=== PATIENT | female | born 1975 | race Caucasian/White ===

== ENCOUNTER 2025-07-15 22:29 | Emergency (ER) | payer MEDICARE, MEDICAID, SELFPAY ==
--- OUTSIDE RECORDS SUMMARY | 2021-09-26 13:26 | XMS_ITS | Encounter Summary ---
Author Organization [facility] Address [address] [place] [address] Care Team Providers Care Third Shift Lieutenant Name Role Phone Shay Muse MD Primary Care Provider [phone] Ewelina Payton MD Unavailable [phone] Ewelina Payton MD Unavailable [phone] Encounter Details Date Type Department Care Team (Late st Contact Info) Description 09/26/2021 12:26 PM EST Hospital Encounter [facility] Care [address] [place] [phone] Odin Johns MD [address] [place] [address] Social History Tobacco Use Types Packs/Day Years Used Date Smoking Tobacco: Every Day Cigarettes 0.9 33.8 Last attempted to quit: 12/06/2024 Smokeless Tobacco: Never Comments:Trying to quit but vaping fot ozzy Alcohol Use Standard Drinks/Week Comments Not Currently 7 (1 standard drink = 0.6 oz pur e alcohol) OASIS D0700: Social Isolation Answer Da te Recorded Frequency of experiencing loneliness or isolatio n Never 02/01/2024 OASIS A1250: Transportation Answer Date Recorded Lack of Transportation (Medical) No 02/01/2024 Lack of Transportation (Non-Medical) No 02/01/2024 Patient Unable or Declines to Respond No 02/01/2024 AUDIT-C Answer Date Recorded Q1: How often do you have a drink containing alc ohol? 2-3 times a week 06/30/2022 Q2: How many drinks containi ng alcohol do you have on a typical day when you are drinking? 1 or 2 06/30/2022 Q3: How often do you have si x or more drinks on one occasion? Never 06/30/2022 Comments No Sex and Gender Information Value Date Recorded Sex Assigned at Female 02/09/2023 2:38 PM EDT Legal Sex Female 11:15 PM EDT Gender Identity Female 01/21/2022 10:16 PM EDT Sexual Orientation Heterosexual (straight) 02/09 2:43 PM EDT COVID-19 Exposure Response Date Recorded In the last 10 days, have yo u been in contact with someone who was confirmed or suspected to have Coronavirus/COVID-19? Unable to assess 03/02/2023 7:51 AM EDT documented as of this encounter Functional Status * Question Answer Date of Assessment Author AUDIT-C Total Score - Female 3 06/30/2022 1 2:00 AM EDT Annabel Rocha RN * AUDIT-C Score Answer Date of Assessment Author 3 06/30/2022 12:00 AM EDT Jonelle Rocha RN * Question Answer Date of Assessment Author Q1: How often do you have a drink containing alcohol? 2-3 times a week 06/30/2022 12:00 AM EDT Misty Rocha RN Q2: How many drinks containing alcohol do you have on a typical day when you are drinking? 1 or 2 06/30/2022 12:00 AM EDT Annabel Rocha RN Q3: How often do you have six or more drinks on one occasion? Never 06/30/2022 12:00 AM EDT Annabel Rocha RN * Level of Risk per Screen Answer Date of Assessment Author Low Risk 06/30/2022 12:00 AM Jonelle Vitale RN documented as of this encounter Plan of Treatment Upcoming Encounters Date Type Department Care Team (Late st Contact Info) Description 07/27/2025 10:30 AM EST Office Visit [facility] Breast Care & Surgery [address] [phone] Christian Subramanian MD [address] [place] [address] 09/04/2025 3:00 PM EST Procedure visit [address] [phone] 10/30/2025 9:30 AM EST Office [facility] [address] [facility] [address] [place] [phone] Abby Lozano APRN 6 [facility] [address] [place] [address] documented as of this encounter Procedures Procedure Name Priority Date/Time Associated Diagnosis Comments XR HAND 3+ VIEWS-RIGHT STAT 09/26/2021 12:35 PM EST Finger pain, right documented in this encounter Results * XR Hand 3+ views-Right (09/26/2021 12:35 PM EST) Anatomical Region Laterality Modality Hand Right Computed Radiogr aphy 09/26/2021 12:3 7 PM EST Impressions 09/26/2021 12:42 PM EST 1.Probably a fracture at the base of the right fourth digit middle phalanx. Narrative 09/26/2021 12:42 PM EST COMPARISON(S): None. TECHNIQUE: AP, lateral, and oblique radiographs of the right hand were obtained. FINDINGS: There may be slight soft tissue swelling at the right fourth digit PIP joint. Bony mineralization and alignment are maintained. No periostitis. On the oblique, there is the suggestion of a small fragment along the volar base of the right fourth digit middle phalanx. This is not seen on the lateral. The fragment is not displaced. Procedure Note Isaac Horner MD - 09/26/2021 COMPARISON(S): None. TECHNIQUE: AP, lateral, and oblique radiographs of the right hand wereobtained. FINDINGS: There may be slight soft tissue swelling at the right fourth digit PIPjoint. Bony mineralization and alignment are maintained. No periostitis. On the oblique, there is the suggestion of a small fragment along thevolar base of the right fourth digit middle phalanx. This is not seen onthe lateral. The fragment is not displaced. IMPRESSION: 1.Probably a fracture at the base of the right fourth digit middlephalanx. Elodia Garza PA-C IMG DIAGNOSTIC IMAGING ORDERAB LES Final Result documented in this encounter Visit Diagnoses Not on filedocumented in this encounter Care Teams Third Shift Lieutenant Relationship Specialty Start Date End Date Shay Muse MD [address] [place] [address] PCP - General Internal Medicine 03/13/21 Ewelina Payton MD [address] [place] [id number] 04/19/20 Ewelina Payton MD [address] [place] [id number] 01/26/08 documented as of this encounter
--- OUTSIDE RECORDS SUMMARY | 2022-01-28 19:42 | XMS_ITS | Encounter Summary ---
Author Organization [facility] Address [address] [place] [address] Care Team Providers Care Cooling Tower Technician Name Role Phone Shay Muse MD Primary Care Provider [phone] Ewelina Payton MD Unavailable [phone] Ewelina Payton MD Unavailable [phone] Encounter Details Date Type Department Care Team (Late st Contact Info) Description 01/28/2022 7:42 PM EDT Hospital Encounter [facility] Care [address] [place] [address] Social History Tobacco Use Types Packs/Day Years [...] - Female 3 06/30/2022 1 2:00 AM NATALIET Annabel Rocha RN * AUDIT-C Score Answer Date of Assessment Author 3 06/30/2022 12:00 AM EDT Jonelle Rocha RN * Question Answer Date of Assessment Author Q1: How often do you have a drink containing alcohol? 2-3 times a week 06/30/2022 12:00 AM NATALIET Misty Rocha RN Q2: How many drinks containing alcohol do you have on a typical day when you are drinking? 1 or 2 06/30/2022 12:00 AM Annabel Vitale RN Q3: How often do you have six or more drinks on one occasion? Never 06/30/2022 12:00 AM EDT Annabel Rocha RN * Level of Risk per Screen Answer Date of Assessment Author Low Risk 06/30/2022 12:00 AM NATALIET Jonelle Rocha RN documented as of this encounter Plan of Treatment Upcoming Encounters Date Type Department Care Team (Late st Contact Info) Description 07/27/2025 10:30 AM EST Office Visit [facility] Breast Care & Surgery [address] [place] [phone] Christian Subramanian MD [address] [place], [place] [address] 09/04/2025 3:00 PM EST Procedure visit [address] [phone] 10/30/2025 9:30 AM EST Office Visit [facility] [address] [facility] [address] [place] [phone] Abby Lozano, SENIOR IT PROJECT MANAGER [address] [place] [address] [address] [place] [address] documented as of this encounter Procedures Procedure Name Priority Date/Time Associated Diagnosis Comments XR FOOT 3+ VIEWS-LEFT Routine 01/28/2022 7:46 PM EDT Crush injury of left foot, initial encounter documented in this encounter Results * XR Foot 3+ views-Left (01/28/2022 7:46 PM EDT) Anatomical Region Laterality Modality Foot Left Computed Radiogr aphy 01/28/2022 7:56 PM EDT Impressions 01/28/2022 7:56 PM EDT 1. No acute fracture or dislocation of the left foot. Narrative 01/28/2022 7:56 PM EDT COMPARISON(S): None. TECHNIQUE: AP, lateral, and oblique radiographs of the left foot were obtained. FINDINGS: Normal mineralization without an acute fracture or dislocation. The soft tissues are unremarkable. Procedure Note Jose Antonio Ardon MD - 01/28/2022 COMPARISON(S): None. TECHNIQUE: AP, lateral, and oblique radiographs of the left foot wereobtained. FINDINGS: Normal mineralization without an acute fracture or dislocation. The softtissues are unremarkable. IMPRESSION: 1. No acute fracture or dislocation of the left foot. LIZ Garcia IMG DIAGNOSTIC IMAGING ORDERABL ES Final Result documented in this encounter Visit Diagnoses Not on filedocumented in this encounter Care Teams Cooling Tower Technician Relationship Specialty Start Date End Date Shay Muse MD [address] [place] [address] PCP - General Internal Medicine 03/13/21 Ewelina Payton MD [address] [place] [address] 04/19/20 Ewelina Payton MD [address] [place] [address] 01/26/08 documented as of this encounter
--- OUTSIDE RECORDS SUMMARY | 2023-01-27 19:56 | XMS_ITS | Encounter Summary ---
Author Organization [facility] Address [address] [place] [address] Care Team Providers Care Square Cutter Name Role Phone Shay Muse MD Primary Care Provider [phone] Ewelina Payton MD Unavailable [phone] Ewelina Payton MD Unavailable [phone] Encounter Details Date Type Department Care Team (Late st Contact Info) Description 01/27/2023 7:56 PM EDT Hospital Encounter [facility] [place] Ur[facility] Care [address] [place] [address] Social History Tobacco Use Types [...] AM EDT documented as of this encounter Plan of Treatment Upcoming Encounters Date Type Department Care Team (Late st Contact Info) Description 07/27/2025 10:30 AM EST Office Visit [facility] Breast Care & Surgery [address] [address] Christian Subramanian MD [address] [place] [address] 09/04/2025 3:00 PM EST Procedure visit [address] [phone] 10/30/2025 9:30 AM EST Office Visit [address] [phone] Abby Lozano APRN [address] [place] [address] documented as of this encounter Procedures Procedure Name Priority Date/Time Associated Diagnosis Comments XR FINGER (2ND) 2+ VIEWS-LEFT Routine 01/27/2023 8:01 PM EDT Contusion of left index finger without damage to nail, initial encounter documented in this encounter Results * XR Finger (2nd) 2+ views-Left (01/27/2023 8:01 PM EDT) Anatomical Region Laterality Modality Hand Left Computed Radiogr aphy 01/27/2023 8:41 PM EDT Impressions 01/27/2023 8:42 PM EDT No acute fracture or dislocation of the left second finger. Narrative 01/27/2023 8:42 PM EDT EXAM: XR FINGER (2ND) 2+ VIEWS-LEFT on 01/27/2023 7:56 PM REASON FOR EXAM: Distal phalanx pain and swelling s/p crushing injury COMPARISON(S): None. TECHNIQUE: AP, oblique, and lateral radiographic views of the left second finger were obtained. FINDINGS: No acute fracture or dislocation. There is a rounded osseous structure at the ulnar aspect of the distal interphalangeal joint with well-corticated edges and no donor site, likely an old avulsion fracture. There is normal bony alignment. Bone mineralization is normal. The cartilage spaces are well-maintained. No focal soft tissue abnormality. Procedure Note Chuy Angel MD - 01/27/2023 EXAM: XR FINGER (2ND) 2+ VIEWS-LEFT on 01/27/2023 7:56 PM REASON FOR EXAM: Distal phalanx pain and swelling s/p crushing injury COMPARISON(S): None. TECHNIQUE: AP, oblique, and lateral radiographic views of the left secondfinger were obtained. FINDINGS: No acute fracture or dislocation. There is a rounded osseous structure atthe ulnar aspect of the distal interphalangeal joint with well-corticatededges and no donor site, likely an old avulsion fracture. There is normalbony alignment. Bone mineralization is normal. The cartilage spaces are well-maintained. Nofocal soft tissue abnormality. IMPRESSION: No acute fracture or dislocation of the left second finger. LIZ Garcia IMG DIAGNOSTIC IMAGING ORDERABL ES Final Result documented in this encounter Visit Diagnoses Not on filedocumented in this encounter Care Teams Square Cutter Relationship Specialty Start Date End Date Shay Muse MD [address] [place] [address] PCP - General Internal Medicine 03/13/21 Ewelina Payton MD [address] [place] [address] 04/19/20 Ewelina Payton MD [address] [place] [address] 01/26/08 documented as of this encounter
--- OUTSIDE RECORDS SUMMARY | 2023-03-02 08:06 | XMS_ITS | Encounter Summary ---
Author Organization [facility] Address [address] [place] [address] Care Team Providers Care Tile Grader Name Role Phone Shay Muse MD Primary Care Provider [phone] Ewelina Payton MD Unavailable [phone] Ewelina Payton MD Unavailable [phone] Zeenat Fierro MD Unavailable [phone] Encounter Details Date Type Department Care Team (Late st Contact Info) Description 03/02/2023 8:06 AM EDT Hospital Encounter [facility] Urgent Care [address] [place] [phone] Social History Tobacco Use Types Packs/Day Years [...] Description 07/27/2025 10:30 AM EST Office Visit [facility] Breast Care & Surgery [address] [phone] Christian Subramanian MD [address] [place] [address] 09/04/2025 3:00 PM EST Procedure visit [address] [phone] 10/30/2025 9:30 AM EST Office Visit [facility] [address] [phone] Abby Lozano APRN [address] [place] [address] documented as of this encounter Procedures Procedure Name Priority Date/Time Associated Diagnosis Comments XR WRIST 3+ VIEWS-RIGHT Routine 03/02/2023 8:10 AM EDT Right wrist tendinitis documented in this encounter Results * XR Wrist 3+ views-Right (03/02/2023 8:10 AM EDT) Anatomical Region Laterality Modality Wrist Right Computed Radiogr aphy 03/02/2023 8:13 AM EDT Impressions 03/02/2023 8:14 AM EDT No acute fracture noted Narrative 03/02/2023 8:14 AM EDT EXAM: XR WRIST 3+ VIEWS-RIGHT on 03/02/2023 8:06 AM CLINICAL HISTORY: LAISHA GIBSON is a 48 years old patient with a submitted history of right wrist injury, r/o fracture. ADDITIONAL HISTORY: Wrist pain, right COMPARISONS: None TECHNIQUE: Multiple views of the wrist performed. FINDINGS: Normal bone mineral density Preserved joint spaces No dislocation No displaced fracture Procedure Note Scot Cruz MD - 03/02/2023 EXAM: XR WRIST 3+ VIEWS-RIGHT on 03/02/2023 8:06 AM CLINICAL HISTORY: LAISHA GIBSON is a 48 years old patient with a submitted historyof right wrist injury, r/o fracture. ADDITIONAL HISTORY: Wrist pain, right COMPARISONS: None TECHNIQUE: Multiple views of the wrist performed. FINDINGS: Normal bone mineral density Preserved joint spaces No dislocation No displaced fracture IMPRESSION: No acute fracture noted LIZ Garcia IMG DIAGNOSTIC IMAGING ORDERABL ES Final Result documented in this encounter Visit Diagnoses Not on filedocumented in this encounter Care Teams Tile Grader Relationship Specialty Start Date End Date Shay Muse MD [address] [place] [address] [address] [place] [address] PCP - General Internal Medicine 03/13/21 Zeenat Fierro MD [address] [place] [address] PCP - Internal Medicine Surgery, Neurosurgery 02/09/23 Ewelina Payton MD [address] [place] [address] 04/19/20 Ewelina Payton MD [address] [place] [address] 01/26/08 documented as of this encounter
--- OUTSIDE RECORDS SUMMARY | 2024-03-02 08:59 | XMS_ITS | Encounter Summary ---
Author Organization [facility] Address [address] [place] [address] Care Team Providers Care Successfactors Consultant Name Role Phone Shay Muse MD Primary Care Provider [phone] Ewelina Payton MD Unavailable [phone] Ewelina Payton MD Unavailable [phone] Zeenat Fierro MD Unavailable [phone] Encounter Details Date Type Department Care Team (Late st Contact Info) Description 03/02/2024 8:59 AM EDT Hospital Encounter [facility] Urgent Care [address] [place] [phone] Social History Tobacco Use Types Packs/Day Years [...] Orientation Heterosexual (straight) 02/09 2:43 PM EDT documented as of this encounter Plan of Treatment Upcoming Encounters Date Type Department Care Team (Late st Contact Info) Description 07/27/2025 10:30 AM EST Office Visit [facility] Breast Care & Surgery [address] [phone] Christian Subramanian MD [address] [place] [address] 09/04/2025 3:00 PM EST Procedure visit [address] [phone] 10/30/2025 9:30 AM EST Office Visit [address] [phone] Abby Lozano APRN [address] [place] [address] documented as of this encounter Procedures Procedure Name Priority Date/Time Associated Diagnosis Comments XR FOOT 3+ VIEWS-LEFT STAT 03/02/2024 9:05 AM EDT Left foot pain documented in this encounter Results * XR Foot 3+ views-Left (03/02/2024 9:05 AM EDT) Anatomical Region Laterality Modality Foot Left Computed Radiogr aphy 03/02/2024 9:18 AM EDT Impressions 03/02/2024 9:19 AM EDT No acute osseous injury identified Narrative 03/02/2024 9:19 AM EDT XR FOOT 3+ VIEWS-LEFT: 03/02/2024 8:59 AM CLINICAL HISTORY: dorsal foot pain. Left foot pain. COMPARISON: 01/28/2022 FINDINGS: The osseous structures are intact. There is no evidence of fracture or dislocation. Minimal degenerative changes first MTP joint. Moderate/large plantar calcaneal spur. No acute osseous injury detected. The examination is similar to prior study of 2021. Procedure Note Erich Espinosa MD - 03/02/2024 XR FOOT 3+ VIEWS-LEFT: 03/02/2024 8:59 AM CLINICAL HISTORY: dorsal foot pain. Left foot pain. COMPARISON: 01/28/2022 FINDINGS: The osseous structures are intact. There is no evidence of fracture ordislocation. Minimal degenerative changes first MTP joint. Moderate/large plantar calcaneal spur. No acute osseous injury detected. The examination is similar to prior study of 2021. IMPRESSION: No acute osseous injury identified [facility] DIAGNOSTIC IMAGING ORDERAB LES Final Result documented in this encounter Visit Diagnoses Not on filedocumented in this encounter Care Teams Successfactors Consultant Relationship Specialty Start Date End Date Shay Muse MD [address] [place] [address] [address] [place] [address] PCP - General Internal Medicine 03/13/21 Zeenat Fierro MD [address] [place] [address] PCP - Internal Medicine Surgery, Neurosurgery 02/09/23 Ewelina Payton MD [address] [place] [address] 04/19/20 Ewelina Payton MD [address] [place] [address] 01/26/08 documented as of this encounter
--- OUTSIDE RECORDS SUMMARY | 2024-07-14 12:33 | XMS_ITS | Encounter Summary ---
Author Organization [facility] [place] [address] Care Team Providers Care Chip Silo Tender Name Role Phone Shay Muse MD Primary Care Provider [phone] Encounter Details Date Type Department Care Team (Latest Contact Info) Description 07/14/2024 12:33 PM EDT Hospital Encounter [facility] HISTORIC ENCOUNTERS EASTERN CONVERSION ONLY Other chest pain; Borderline personality disorder (CMS/HCC V24, CMS/HCC V28); Major depressive disorder, recurrent severe without psychotic features (CMS/HCC V24, CMS/HCC V28); Unspecified right bundle-branch block Social History Tobacco Use Types Packs/Day Years Used Date Smoking Tobacco: Every Day Cigarettes 1 30 Started: 07/23/1995 Passive Smoke Exposure: Current Smokeless Tobacco: Never Alcohol Use Standard Drinks/Week Comments Yes 3 (1 standard drink = 0.6 oz pur e alcohol) Comments Unknown Sex and Gender Information Value Date Recorded Sex Assigned at Not on file Legal Sex Female 10:09 AM EST Gender Identity Not on file Sexual Orientation Not on file documented as of this encounter Last Filed Vital Signs Vital Sign Reading Time Taken Comments Blood Pressure - - Pulse - - Temperature - - Respiratory Rate - - Oxygen Saturation - - Inhaled Oxygen Concentration - - Weight 81.6 kg (180 lb) 06/29/2024 8:06 AM EDT Height 165.1 cm (5' 5 ) 06/29/2024 8:06 AM EDT Body Mass Index 29.95 06/29/2024 8:06 AM EDT documented in this encounter Functional Status * Calculated C-SSRS Risk Score (Lifetime/Recent) Answer Date of Assessment Author No Risk Indicated 03/23/2025 8:02 AM EDT Dorothea Montes De Oca RN * [place] Suicide Severity Rating Scale (Screener/Recent Self-Report) Question Answer Date of Assessment Author 1. Wish to be (Past 1 Month) No 025 8:02 AM EDT López Montes De Oca RN 2. Non-Specific Active Suici paul Thoughts (Past 1 Month) No 03/23/2025 8:02 AM EDT López Montes De Oca RN 6. Suicidal Behavior (Lifetime) No 8:02 AM EDT López Montes De Oca RN documented as of this encounter Plan of Treatment Upcoming Encounters Date Type Department Care Team (Late st Contact Info) Description 07/27/2025 12:30 PM EST Office Visit [facility] [address] [phone] Negra Marcelino NP [address] [address] 08/28/2025 11:30 AM EST Appointment [facility] EP Lab [address] [place] [phone] 09/10/2025 9:00 AM EST Office Visit [facility] [address] [phone] Cordell Turpin MD [address] [place] [address] documented as of this encounter Procedures Procedure Name Priority Date/Time Associated Diagnosis Comments TRANSTHORACIC ECHOCARDIOGRAM (TTE) COMPLETE (CONTRAST/BUBBLE/3D/MY OCARDIAL STRAIN PRN) Routine 07/14/2024 1:06 PM EDT Other chest pain Borderline personality disorder (CMS/HCC V24, CMS/HCC V28) Major depressive disorder, recurrent severe without psychotic features (CMS/HCC V24, CMS/HCC V28) Unspecified right bundle-branch block documented in this encounter Results * Transthoracic Echocardiogram (Tte) Complete (Contrast/Bubble/3D/Myocardial Strain Prn) (07/14/2024 1:06 PM EDT) Anatomical Region Laterality Modality Other 07/14/2024 Narrative 07/14/2024 1:06 PM EDT Report completed outside of [facility]. Refer to scanned document and/or notes for final report. Not Vldtd Procedure Note Historical, Cardiovascular Results, MD - 07/22/2024 Report completed outside of [facility]. Refer to scanned document and/or notesfor final report. Not Vldtd us Cordell Turpin MD CV HISTORICAL CONV PROCEDURES Fi nal Result documented in this encounter Visit Diagnoses Diagnosis Other chest pain Borderline personality disorder (CMS/HCC V24, CMS/HCC V28) Borderline personality disorder Major depressive disorder, recurrent severe without psychotic features (CMS/HCC V24, CMS/HCC V28) Unspecified right bundle-branch block documented in this encounter Care Teams Chip Silo Tender Relationship Specialty Start Date End Date Shay Muse MD [address] [place] [address] PCP - General Internal Medicine 05/01/21 documented as of this encounter
--- OUTSIDE RECORDS SUMMARY | 2025-07-10 11:30 | XMS_ITS | Encounter Summary ---
Author Organization [facility] Address [address] [place] [id number] Care Team Providers Care Warehouse Puller Name Role Phone Shay Muse MD Primary Care Provider [phone] Ewelina Payton MD Unavailable [phone] Ewelina Payton MD Unavailable [phone] Zeenat Fierro MD Unavailable [phone] Cordell Turpin MD Unavailable Reason for Referral * Rehabilitation (Elective) - Pending Review Specialty Diagnoses / Procedures Referred By Panchito chao Referred To Contact Rehabilitation Diagnoses Dyssynergia Abby Lozano APRN 6 [facility] [address] [place] [address] Phone: tel: fax: Jon Kamara, PT 2 [facility] [address] [place] [address] Phone: tel: fax: Referral ID Status Reason Start Date Expiration Date Visits Requested Visits Authorized [id number] Pending Review Support Services 07/11/2026 99 99 Question Answer Is this referral for an initial evaluation or additional visits? Initial evaulation Is this related to a Neurological Condition? No * Diagnostic Imaging (Routine) - Pending Review Specialty Diagnoses / Procedures Referred By Contac t Referred To Contact Diagnoses Pain of upper abdomen Procedures CT Abdomen w/contrast (65935) Abby Lozano APRN [address] [address] Phone: tel: fax: CHRISTOPHERCANDI [facility] [place] Referral ID Status Reason Start Date Expiration Date V isits Requested Visits Authorized [id number] Pending Review 07/10/2025 07/11/2026 1 1 Reason for Visit * Reason Comments Abdominal Pain Encounter Details Date Type Department Care Team (Late st Contact Info) Description 07/10/2025 11:30 AM EDT Office Visit [address] [place] [phone] Abby Lozano APRN [address] [address] Dyssynergia (Primary Dx); Irritable bowel syndrome with constipation; Tubular adenoma of colon; Gastroesophageal reflux disease without esophagitis; Abdominal bloating; Pain of upper abdomen; Nausea and vomiting, unspecified vomiting type Social History Tobacco Use Types Packs/Day Years Used Date Smoking Tobacco: Every Day Cigarettes 0.9 33.8 Last attempted to quit: 12/06/2024 Smokeless Tobacco: Never Tobacco Cessation:Ready to Q uit: Not Asked; Counseling Given: Not Answered Comments:Trying to quit but vaping fot ozzy [...] PM EDT documented as of this encounter Last Filed Vital Signs Vital Sign Reading Time Taken Comments Blood Pressure 110/70 07/10/2025 11:17 AM EDT Pulse 91 07/10/2025 11:17 AM EDT Temperature - - Respiratory Rate - - Oxygen Saturation - - Inhaled Oxygen Concentration - - Weight 70.5 kg (155 lb 6.4 oz) 07/10/2025 11:17 AM EDT Height 167.6 cm (5' 6 ) 07/10/2025 11:17 AM EDT Body Mass Index 25.08 07/10/2025 11:17 AM EDT documented in this encounter Progress Notes * Abby Lozano, RASHAAD - 07/10/2025 11:30 AM EDT Images from the original note were not included. [address] [phone] [facility] PROGRESS NOTE Assessment & Plan 1. Dyssynergia Anorectal motility testing April 2025: Dyssynergia features with normal BET. Consider biofeedback therapy. Patient was referred to Anjel Kamara Patient forgot to go to PT. Referral was resent today. 2. Irritable bowel syndrome with constipation 3. Abdominal bloating She has a long hx of constipation Has tried Linzess - stopped in 2022 but unsure why Amitiza and trulance do not work for her. Motegrity was too expensive. Ibsrela was not covered by patient Most recent colonoscopy in 2024 ARM testing in April showing dyssynergia features-referral sent for biofeedback Currently taking Amitiza twice daily. Advised to add MiraLAX as needed Advised to try fiber supplement Start Colace/ Docusate 100 mg at bedtime Can increase to twice a day after 1-2 weeks if stools still too hard/ firm. 4. Tubular adenoma of colon Colonoscopy April 2025: 3 polyps. Recommendation was to repeat colonoscopy in 7 years Path: 1 sessile serrated polyp, 1 adenomatous polyp and 1 hyperplastic polyp 5. Gastroesophageal reflux disease without esophagitis EGD April 2025: Normal esophagus, gastritis, normal examined duodenum Path: Gastritis She only has symptoms when she eats certain sauces and buffalo wings. Well-controlled on Pepcid 20 mg daily Continue Pepcid 20 mg daily Avoid/limit tobacco, alcohol, chocolate, peppermint, caffeine, greasy foods, spicy foods, and acidic foods such as citrus and tomato. Eat smaller, more frequent meals, and do not eat within 2 hours of bedtime. If you have night-time symptoms, elevate the head of the bed 6 to 12 inches. 6. Pain of upper abdomen EGD April 2025: Normal esophagus, gastritis, normal examined duodenum Path: Gastritis Patient was tender on physical exam today. Abdominal ultrasound March 2025: Right renal cyst Will get CT and lab work as patient continues to have abdominal pain ? Related to GERD Can consider trial of PPI if CT scan is negative 7. Nausea and vomiting, unspecified vomiting type Patient with new nausea and vomiting in the past month as well as headaches. This all started when she started Vraylar. She did stop this medication last week. Did get a Holter monitor from cardiology Advised to monitor her symptoms being off medication and if they continue we can do further workup. Plan: CT scan abdomen. Continue the amitiza and restart miralax as needed. Trial stool softener and fiber supplement Start Citrucel OTC daily Biofeedback therapy Continue Pepcid 20 mg daily complete lab work Orders Placed This Encounter CT Abdomen w/contrast (17364) Comprehensive Metabolic Panel Complete Blood Count, with Differential Lipase Amb Referral to Therapy Services (PT or OT) Patient is aware to follow up: 3 months. Patient will call sooner if symptoms develop or worsen. Patient verbalized understanding and is in agreement with plan. No LOS data to display During the day of the visit, time was spent including the following: Examining the patient Chart review in preparation for the visit Documenting in the patient record Reviewing Labs & Radiology Medication Reconciliation Subjective Laisha Oconnor is a 50 y.o. female who presents for follow up. Patient was last seen in office in March 2025 for personal history of colon polyps, GERD, left upperquadrant pain, irritable bowel syndrome constipation, abdominal bloating, black stools. At that time patient was to complete colonoscopy/endoscopy, anorectal motility testing, abdominal ultrasound and complete lab work. Trial of Ibsrela was sent in for patient. Lab work was not completed. Colonoscopy April 2025: 3 polyps. Recommendation was to repeat colonoscopy in 7 years Path: 1 sessile serrated polyp, 1 adenomatous polyp and 1 hyperplastic polyp EGD April 2025: Normal esophagus, gastritis, normal examined duodenum Path: Gastritis Anorectal motility testing April 2025: Dyssynergia features with normal BET. Consider biofeedback therapy. Patient was referred to Anjel Kamara Today: She did try trulance and it did not work. Linzess was not effective. Motegrity was ordered but insurance did not cover so they went back to the amitiza. Patient states she did not get ibsrela because insurance would not cover She has a BM every day to every 4 days - using amitiza daily. Stool can still be hard at times. She did not try the colace to soften the stool. She states she has the urge to have a BM but she cannot get it out. She is drinking a lot of water. She feels like stool is getting stuck in her rectum. She did not go for biofeedback. She states her diet is very bad right now. She does report hx of 3 back surgeries and wonders if this contributes - still reports issues with numbess/tingling down legs at times Additionally - notes area in her perineal region that has been numb since her 9 year old son was born No bloody or black stools. She has bloating once a week. She has some bloating currently. She has abdominal pain with the bloating. She has some abdominal pain in her RUQ. She has heartburn if she eats certain sauces and buffalo wings otherwise well controlled on pepcid 20 mg daily. She was on vrylar for a month and a half and was having dizziness, nausea and vomiting, headaches. She stopped this a week ago. This all started a month ago when starting vraylar. She did a Holter monitor - awaiting results. BP 92/95. She was vomiting every day. She has not vomiting since Wednesday night. She is actively trying to lose weight. Images reviewed: Abdominal ultrasound March 2025: Right renal cyst [] Family Hx Colon Cancer/Polpys: Dad with colon polpys NSAID/Blood Thinner: No Social Hx: Alcohol: Couple of bears every couple weeks Smoking: Over pack a day Other drug use: Marijuana occasional Prior GI Workup: Diminutive TA on 2022 cscope Recall 2027 Review of Systems Constitutional: Positive for weight loss. HENT: Positive for sleep apnea. Eyes: Positive for wears glasses or contacts. Respiratory: Negative. Gastrointestinal: Positive for abdominal pain, bloating, constipation, flatus, heartburn, nausea, vomiting, abdominal swelling and laxative use. Negative for blood in stool, change in bowel habit, black stool, pain swallowing and difficulty eating/swallowing. Genitourinary: Negative. Musculoskeletal: Positive for back pain. Skin: Negative. Breast: Negative. Neurological: Positive for dizziness. Endo/Heme/Allergies: Positive for cold intolerance. Bruises/bleeds easily. Psychiatric/Behavioral: Positive for depression. The patient is nervous/anxious. Objective Vitals: 07/10/25 1117 BP: 110/70 BP Location: Left arm Patient Position: Sitting Cuff Size: Medium (Standard) Pulse: 91 Weight: 70.5 kg (155 lb 6.4 oz) Height: 1.676 m (5' 6 ) Body mass index is 25.08 kg/m??. Wt Readings from Last 3 Encounters: 07/10/25 70.5 kg (155 lb 6.4 oz) 05/01/25 71.7 kg (158 lb) 04/03/25 72.6 kg (160 lb) Physical Exam Vitals and nursing note reviewed. Constitutional: Appearance: Normal appearance. She is well-developed. HENT: Head: Normocephalic. Eyes: General: No scleral icterus. Conjunctiva/sclera: Conjunctivae normal. Cardiovascular: Rate and Rhythm: Normal rate and regular rhythm. Heart sounds: Normal heart sounds. Pulmonary: Effort: Pulmonary effort is normal. Breath sounds: Normal breath sounds. Abdominal: General: Bowel sounds are normal. There is no distension. Palpations: Abdomen is soft. Tenderness: There is abdominal tenderness in the epigastric area. Musculoskeletal: Cervical back: Neck supple. Skin: General: Skin is warm and dry. Neurological: Mental Status: She is alert and oriented to person, place, and time. Psychiatric: Behavior: Behavior normal. Allergies[1] Medication List Caplyta 10.5 MG Cap take 1 capsule by mouth in the evening chlorhexidine (PERIDEX) 0.12 % oral solution Apply 15 mL to the mouth or throat See Admin Instructions. once every other day famotidine (PEPCID) 20 MG tablet TAKE 1 TABLET BY MOUTH TWICE A DAY hydrOXYzine HCl (ATARAX) 25 MG tablet TAKE 1-2 TABLET THREE TIMES A DAY NEEDED FOR ANXIETY ibuprofen (MOTRIN) 600 MG tablet Take 1 tablet (600 mg total) by mouth 3 (three) times a day as needed for mild pain or moderate pain. LaMICtal 150 MG tablet Take 150 mg by mouth 2 (two) times a day. lubiprostone (AMITIZA) 24 MCG capsule Take 1 capsule (24 mcg total) by mouth 2 (two) times a day with meals. pramipexole (miraPEx) 1.5 MG tablet TAKE 6 TABLET BY MOUTH AT BEDTIME traZODone (DESYREL) 100 MG tablet Take by mouth. Recent Labs and Tests Lab Results Component Value Date WBC 5.9 11/26/2024 HGB 15.1 11/26/2024 HCT 44.6 11/26/2024 MCV 96 11/26/2024 PLT 245 11/26/2024 Lab Results Component Value Date GLUC 97 11/26/2024 CALCIUM 9.3 11/26/2024 NA 139 11/26/2024 K 3.9 11/26/2024 CO2 24 11/26/2024 CL 104 11/26/2024 BUN 15 11/26/2024 CREAT 0.7 11/26/2024 Lab Results Component Value Date ALT 15 11/26/2024 AST 15 11/26/2024 GGT 9 11/01/2013 ALKPHOS 80 11/26/2024 BILITOT 0.3 11/26/2024 ALBUMIN 4.3 11/26/2024 Lab Results Component Value Date INR 0.9 09/04/2015 No results found for: LIPASE No results found for: AMYLASE Imaging No results found. Histories Past Medical History: Diagnosis Date Allergic rhinitis 2019 Anemia Borderline Anxiety Back pain 2008 Fusion Bipolar disorder (HCC) Breast mass Cold intolerance Constipation Depression General weakness Some in hands GERD (gastroesophageal reflux disease) Heartburn History of transfusion Possibly during back surgery Leg cramps RLS Palpitations Restless leg syndrome Sleep apnea uses a oral appliance Spinal headache Varicella 1979 Past Surgical History: Procedure Laterality Date BACK SURGERY s1-l5 fusion BARIATRIC SURGERY SECTION COLONOSCOPY N/A 12/09/2022 Procedure: COLONOSCOPY; Surgeon: Spencer Portillo MD; Location: [facility]; Service: Gastroenterology; Laterality: N/A; COLONOSCOPY N/A 05/09/2025 Procedure: COLONOSCOPY; Surgeon: Arya Mars MD; Location: [facility]; Service: Gastroenterology; Laterality: N/A; ENDOSCOPY UPPER N/A 12/09/2022 Procedure: ENDOSCOPY UPPER; Surgeon: Spencer Portillo MD; Location: [facility]; Service: Gastroenterology; Laterality: N/A; ENDOSCOPY UPPER N/A 05/09/2025 Procedure: ENDOSCOPY UPPER; Surgeon: Arya Mars MD; Location: [facility]; Service: Gastroenterology; Laterality: N/A; SPINE SURGERY 2009 2022 and 2023 TONSILLECTOMY TUBAL LIGATION VAGINAL DELIVERY WISDOM TOOTH EXTRACTION Social History[2] Family History Problem Relation Age of Onset No Known Problems Mother Heart attack Father Clogged arteries caught before heart attack Colon polyps Father Diabetes Father Hypertension Father Ulcers Father Learning disabilities Father No Known Problems Half-Sister No Known Problems Brother Ovarian cancer Maternal Aunt 30 - 39 Alcohol abuse Maternal Aunt Breast cancer Paternal Aunt 50 - 59 No Known Problems Paternal Uncle Breast cancer Maternal Grandmother Actually my father's mother Mental illness Maternal Grandmother Anxiety disorder Maternal Grandmother Lung cancer Maternal Grandmother Cancer, other Maternal Grandmother No Known Problems Maternal Grandfather Breast cancer Paternal Grandmother 60 - 69 Stroke Paternal Grandmother Dementia Paternal Grandmother No Known Problems Paternal Grandfather Breast cancer Other 50 - 59 defects Son Mild to moderate hearing loss. Rt kidney small attached to lt Genetic Screening Son Dementia Maternal Uncle Learning disabilities Sister Learning disabilities Son Alcohol abuse Paternal Uncle All relevant data including labs, xrays, diagnositic studies, physician notes, and referral notes were reviewed Electronically signed by Abby Lozano APRN Disclaimer: Portions of this note were dictated by speech recognition. Minor errors in mill supervisor may be present. [1] No Known Allergies [2] Social History Tobacco Use Smoking status: Every Day Current packs/day: 0.00 Average packs/day: 0.9 packs/day for 33.8 years (30.1 ttl pk-yrs) Types: Cigarettes Last attempt to quit: 12/06/2024 Years since quittin.5 Smokeless tobacco: Never Tobacco comments: Trying to quit but vaping fot ozzy Vaping Use Vaping status: Never Used Substance Use Topics Alcohol use: Not Currently Alcohol/week: 7.0 standard drinks of alcohol Drug use: Not Currently Types: Marijuana documented in this encounter Plan of Treatment Upcoming Encounters Date Type Department Care Team (Late st Contact Info) Description 07/27/2025 10:30 AM EST Office Visit [facility] [address] [phone] Christian Subramanian MD [address] [place] [address] 09/04/2025 3:00 PM EST Procedure visit [address] [phone] 10/30/2025 9:30 AM EST Office Visit [address] [phone] Abby Lozano APRN [address] [place] [id number] Scheduled Orders Name Type Priority Associated Diagnoses Orde r Schedule Comprehensive Metabolic Panel Lab Routine Pain of upper abdomen Ordered: 07/10/2025 Complete Blood Count, with Differential Lab Routine Pain of upper abdomen Ordered: 07/10/2025 Lipase Lab Routine Pain of upper abdomen Ordered: 07/10/2025 CT Abdomen w/contrast (81695) Imaging Routine Pain of upper abdomen Expected: 07/10/2025, Expires: 07/10/2026 Scheduled Referrals Name Type Priority Associated Diagnoses Orde r Schedule Amb Referral to Therapy Services (PT or OT) Outpatient Referral Routine Dyssynergia Ordered: 07/10/2025 documented as of this encounter Visit Diagnoses Diagnosis Dyssynergia- Primary Lack of coordination Irritable bowel syndrome with constipation Irritable bowel syndrome Tubular adenoma of colon Benign neoplasm of colon Gastroesophageal reflux disease without esophagitis Esophageal reflux Abdominal bloating Flatulence, eructation, and gas pain Pain of upper abdomen Nausea and vomiting, unspecified vomiting type documented in this encounter Care Teams Warehouse Puller Relationship Specialty Start Date End Date Shay Muse MD [address] [place] [address] [address] [place] [address] PCP - General Internal Medicine 03/13/21 Zeenat Fierro MD [address] [place] [id number] PCP - Internal Medicine Surgery, Neurosurgery 02/09/23 Ewelina Payton MD [address] [place] [phone] 04/19/20 Ewelina Payton MD [address] [place] [address] 01/26/08 Cordell Turpin MD 19 [facility] [address] [place] [address] Insect Control Inspector 05/01/25 documented as of this encounter
[2025-07-15 22:34] VITALS: BP 100/54; PULSE 72; RESP 18; TEMP 35.9; O2SAT 96; BMI 24.2
--- NOTE | 2025-07-15 22:38 | ECG_ITS ---
Test Reason : SYNCOPE Blood Pressure : */* mmHG Vent. Rate : 65 BPM Atrial Rate : 65 BPM P-R Int : 156 ms QRS Dur : 88 ms QT Int : 428 ms P-R-T Axes : 57 -18 17 degrees QTcB Int : 445 ms Normal sinus rhythm Normal ECG When compared with ECG of 11-May-2018 14:23, No significant change was found Referred By: Generic ED Physician Electronically Signed By: CATHI GUZMAN
--- NOTE | 2025-07-15 23:22 | ED_ITS ---
HPI - Altered Mental Status General Chief Complaint: Syncope Stated Complaint: sob/fainted Time Seen by Provider: 07/15/25 23:09 Source: patient, EMS and other (boyfriend) Mode of arrival: EMS Limitations: altered mental status History of Present Illness ED Provider: Dr. Gina uA HPI narrative: 50-year-old female with a history of seizure disorder, orthostatic hypotension, daily alcohol use presenting with altered mental status from her boyfriend's house. EMS reports they were called to patient that was unresponsive. They found the patient alert and oriented when they arrived. Patient admits to taking her night medications including trazodone which she uses for sleep. She is unable to give any history as on arrival to the emergency department, she has been rather somnolent. She denies illicit substance use. Has been avoiding alcohol for the last couple of days. Denies history of alcohol withdrawal. Denies illicit substance use including marijuana. No reported fever. Patient admits to feeling globally weak and fatigued. Denies any vaginal bleeding or discharge. No headache or vision changes. No known sick contacts. Related Data Previous Rx's ?Medication ?Instructions ?Recorded nitrofurantoin 100 mg PO Q12H 7 days #14 ca ps 07/16/25 monohydrate/macrocrystals 100 mg capsule (Macrobid) Allergies Allergy/AdvReac Type Severity Reaction Status Date / Time No Known Allergies Allergy Verified 07/15/25 22:36 Review of Systems 2 Review of Systems: As per HPI, full review of systems performed and negative but for the above mentioned pertinent positives and negatives. [facility] Social History Social History Smoked in Last 30 Days: No Use of substances other than those prescribed or required for medical reasons: No Advance Directives: No Advance Directives Information Provided: No Do you have a plan to hurt others: No Plan Physical Exam ED Exam Exam: GENERAL: Appears intoxicated, GCS 13, eyes open to voice, slurred speech, no acute distress. SKIN: Normal skin color for ethnicity, warm, dry, no rashes noted. HEENT: Normocephalic, atraumatic, no stridor, posterior oropharynx nonerythematous, dentition intact, EOMI, pupils are pinpoint bilaterally, reactive to light. NECK: Soft, supple, no step-offs, no deformities, no lymphadenopathy. CHEST: Heart regular tachycardia, no murmurs, symmetric chest rise and fall. PULMONARY: Clear to auscultation bilaterally, diminished at the bases, no labored breathing, no wheezes/rhales/rhonchi. ABDOMINAL: Soft, nondistended, positive bowel sounds in all quadrants. : Deferred. MUSCULOSKELETAL: Normal tone, full range of motion, no deformities, no peripheral edema. NEURO: GCS 13, eyes open to voice, slightly slurred speech, CN II through XII intact, equal strength and sensation bilateral upper and lower extremities, no focal neurologic deficits. PSYCHIATRIC: Flat affect, poor eye contact. Vital Signs: Vital Signs - 24 hr 07/15/25 22:34 07/16/25 00:07 07/16/25 00:43 Temperature 96.6 F L 97.7 F Pulse Rate 72 66 Respiratory Rate 18 Blood Pressure 100/54 L 103/56 L Pulse Oximetry 96 98 97 Oxygen Delivery Method Room Air Room Air Room Air BMI result Body Mass Index 24.2 Medications Administered Discontinued Medications Generic Name Dose Route Start Last Admin Trade Name Freq PRN Reason Stop Dose Admin Lactated Ringer's 1,000 mls @ 999 mls/hr 07/15/25 23:22 07/16/25 00:46 Lr IV 07/16/25 00:22 Infused .Q1H1M ONE Infusion Nitrofurantoin Macrocrystals 100 mg 07/16/25 03:09 07/16/25 03:13 Nitrofurantoin Monohyd/M-Cryst 100 Mg Capsule PO 07/16/25 03:10 100 mg ONCE ONE Administration Ondansetron HCl 4 mg 07/15/25 23:29 07/15/25 23:36 Ondansetron Hcl 4 Mg/2 Ml Vial IVPUSH 07/15/25 23:30 4 mg ONCE ONE Administration Medical Decision Making Medical Decision Making MDM Narrative: Patient presents today with a chief complaint of altered mental status. Differential diagnosis for AMS is incredibly broad and includes infection, intracranial process such as hemorrhage, stroke or mass, electrolyte abnormality, hypercarbia, hypoxia, toxic encephalopathy, among many others. Broad-based workup was initiated to further evaluate the etiology of patient's symptoms based on the above exam and history. Patient's blood pressure is rather low, prompting IV fluid administration. That being said, she reports her blood pressures often run low and she has issues with postural hypotension. Otherwise, her workup today has been reassuring. Leukocytosis favored to be due to urinary tract infection. No evidence of sepsis otherwise. Plan for antibiotics, outpatient follow-up. Patient has perianesthesia rn that she sees regularly. Discharged home in stable condition. Differential Diagnosis Differential Diagnoses: The differential diagnosis associated with the presentation includes (As above) Admission/Observation Consideration of admission/observation: Escalation of care including admission/observation considered Lab Data MDM Lab Attestation statement: I reviewed the patient's lab results. 07/15/25 23:30 07/15/25 23:30 Labs: Lab Results 07/15/25 07/16/25 Range/Units 23:30 01:37 WBC 13.5 H (4.8-10.8) X10*3/uL RBC 3.93 L (4.20-5.50) X10*6/uL Hgb 13.1 (12.0-16.0) g/dl Hct 38.7 (37.0-47.0) % MCV 98.5 H (80.0-98.0) fL MCH 33.3 H (27.0-33.0) pg MCHC 33.9 (31.0-35.0) g/dl RDW 12.5 (11.0-16.0) % Plt Count 228 (160-400) X10*3/uL MPV 9.9 (9.4-12.3) fL Immature Gran % (Auto) 0.3 (0.0-0.4) % Neut % (Auto) 85.6 H (45-73) % Lymph % (Auto) 8.8 L (20-40) % [place] % (Auto) 4.8 (2-11) % Eos % (Auto) 0.4 (0-4) % Baso % (Auto) 0.1 (0-2) % Lymph # (Auto) 1.2 (1.2-4.9) X10*3/uL [place] # (Auto) 0.6 (0.1-1.2) X10*3/uL Eos # (Auto) 0.1 (0.0-0.4) X10*3/uL Baso # (Auto) 0.0 (0.0-0.2) X10*3/uL Abs Immat Gran (auto) 0.04 H (0.00-0.03) X10*3/uL Absolute Neuts (auto) 11.5 H (2.0-8.3) x10*3/uL Absolute Nucleated RBC 0.000 (0.0-0.012) X10*3/uL Nucleated RBC % (auto) 0.0 (0.0-0.2) /100WBC Sodium 139 (135-145) mmol/L Potassium 3.9 (3.3-5.1) mmol/L Chloride 110 H (96-108) mmol/L Carbon Dioxide 23 (22-29) mmol/L Anion Gap 10 L (12-20) BUN 18 H (9-16) mg/dL Creatinine 0.77 (0.5-1.4) mg/dL Estim Creat Clear Calc 80.8 Estimated GFR > 60 Random Glucose 125 H (60-115) mg/dL Calcium 8.5 (8.4-10.2) mg/dL Magnesium 2.0 (1.6-2.6) mg/dL Total Bilirubin 0.2 (0.0-1.0) mg/dL AST 14 (5-31) U/L ALT 13 (0-31) U/L Alkaline Phosphatase 51 (39-117) U/L Total Creatine Kinase 94 (26-140) U/L Troponin I High Sens < 2.7 (<3.5-17.0) ng/L Total Protein 6.1 L (6.5-8.0) g/dL Albumin 4.2 (3.5-5.0) g/dL Lipase 14 (8-78) U/L Urine Color Yellow Urine Appearance Cloudy Urine pH 6.0 (5.0-9.0) Ur Specific [place] 1.015 (1.005-1.025) Urine Protein Negative (Neg-Trace) mg/dL Urine Glucose (UA) Negative (Negative) mg/dL Urine Ketones Negative (Negative) mg/dL Urine Blood Negative (Negative) Urine Nitrite Negative (Negative) Ur Leukocyte Esterase Small (1+) H (Negative) Urine RBC 0-2 (0-2) /HPF Urine WBC 11-20 H (0-5) /HPF Ur Squamous Epith Cells 11-20 (0-2) /HPF Urine Bacteria 3+ (None Seen) Hyaline Casts 0-2 (0-2) /LPF Salicylates < 5.0 L (15-30) mg/dL Urine Opiates Screen Not Detected (Not Detect) Ur Buprenorphine Scrn Not Detected (Not Detect) ng/mL Ur Oxycodone Screen Not Detected (Not Detect) ng/mL Urine Methadone Screen Not Detected (Not Detect) ng/mL Urine Fentanyl Screen Not Detected (Not Detect) Acetaminophen < 3 (<30) mcg/mL Ur Barbiturates Screen Not Detected (Not Detect) Ur Phencyclidine Scrn Not Detected (Not Detect) Ur Amphetamines Screen Not Detected (Not Detect) U Benzodiazepines Scrn Not Detected (Not Detect) Urine Cocaine Screen Not Detected (Not Detect) U Marijuana (THC) Screen Not Detected (Not Detect) Ethyl Alcohol < 10 mg/dL COVID-19 (MOISÉS) Negative (Negative) COVID-19 Clin Com See Note Influenza Type A (LAQUITA) Negative (Negative) Influenza Type B (LAQUITA) Negative (Negative) Influenza A & B Note See Note Independent Interpretation I performed an independent interpretation of an: EKG Interpretation: My independent interpretation of the ECG reveals normal sinus rhythm with rate of 65, normal axis, normal intervals, no ST elevations or depressions to suggest ischemic changes, relatively unchanged from previous on 05/11/2018. Independent Historian Clinical information obtained from an independent historian. History obtained from or confirmed by: Spouse and EMS Prescription Management I considered prescription management with: Antibiotic Chronic Conditions Patient?s care impacted by: Other (Bipolar disorder) Social Determinants Patient?s care significantly limited by Social Determinants of Health including: Problems related to primary support group Discharge Plan Discharge Clinical Impression: Dehydration, Syncope due to orthostatic hypotension, UTI (urinary tract infection), uncomplicated Patient Disposition: Home, Self-Care Instructions: Syncope (ED) Additional Instructions: Take your antibiotic as prescribed until the course is completed. Do not stop this medication early if you start to feel better. Return to the emergency department with any new or worsening symptoms including: Worsening pain, fevers greater than 100? despite antibiotic treatment, vomiting, or any new symptom that concerns you. Call 911 with any medical emergency. Prescriptions: New nitrofurantoin monohyd/m-cryst [Macrobid] 100 mg capsule 100 mg PO Q12H 7 Days Qty: 14 0RF Rx Instructions: must administer with a meal/food Interventions: ED Discharge Assessment Last Done: 07/16/25 03:28 Discharge Date/Time: 07/16/25 03:35 Print Language: Panamanian
[2025-07-15 23:36] LABS: Hematocrit 38.7 % (37.0-47.0); Hemoglobin 13.1 g/dl (12.0-16.0); Imm Gran Abs Auto 0.04 X10*3/uL (0.00-0.03); Imm Gran Pct Auto 0.3 % (0.0-0.4); Lymphocytes Absolute Auto 1.2 X10*3/uL (1.2-4.9); MANUAL DIFF FLAG NO; Mean Corpuscular HGB Conc 33.9 g/dl (31.0-35.0); Mean Corpuscular Hemoglobin 33.3 pg (27.0-33.0); Mean Corpuscular Volume 98.5 fL (80.0-98.0); NRBC Abs Auto 0.000 X10*3/uL (0.0-0.012); NRBC Pct Auto 0.0 /100WBC (0.0-0.2); Platelet Count 228 X10*3/uL (160-400); Red Blood Count 3.93 X10*6/uL (4.20-5.50); White Blood Count 13.5 X10*3/uL (4.8-10.8)
[2025-07-15] MEDS: Lactated Ringers 1,000 ML 999 ML IV (23:36)
--- NOTE | 2025-07-15 23:39 | PC.NURSE ---
Took over care from CELIA Gil at 23:00, Iv place in Right AC, 20g, labs collected and sent, medicated per nov.
--- OUTSIDE RECORDS SUMMARY | 2025-07-15 23:41 | XMS_ITS | Data Portability ---
Author Organization [place] - [employer] [place], [place], [facility] ADMIN Address [address] [place] [address] Care Team Providers Care Restaurant Greeter Name Role Phone CARRI ARRIAZA Primary Care Provider [phone] Assessment No assessment recorded. Plan of Treatment Reminders Order Date Submit Date Provider Last Modified By Organization Details Last Modified Time Details Appointments ULTRASOUN D 30 2025 09:30A M GP US TECH 1 Not available Not available Not available ULTRASOUN D FU 20 2025 10:00A M FRANCISCO NOYOLA NP Not available Not available Not available Lab basic metabolic 1998 panel, serum or plasma - not fasting 2024 025 [facility], [address] [place], [address], 05/24/2025 11:08:05 urinalysi s, dipstick, auto 2024 025 [facility], [address], [place], [address], 05/24/2025 11:08:05 culture, urine 2024 025 [facility], [address] [place], [address], 05/26/2025 10:15:56 Referral None recorded. Procedures bladder scan (PROC) 2024 025 [facility], [address], [place], [address], 05/24/2025 11:08:05 Surgeries None recorded. Imaging MRI, abdomen, w/wo contrast - Please provide Bosniak classific ation of renal cysts if possible. Please call patient to schedule. 2024 025 [email or web address] ([facility]), [address], [address], [place], [address], 06/06/2025 08:14:24 Medication Orders None recorded. Patient TargetsNo targets recorded. Patient Instructions Encounter Date Encounter Id Patient Instructions Last Modified By Organization Details Last Modified Time 05/23/2025 [id number] [facility] Please proceed to the lab down the ingram immediately following today's visit for blood draw. An MRI has been ordered for you at radiology [facility]. [facility] will contact you to schedule. If you do not hear from them by the end of day tomorrow, please call them to schedule. You will follow-up with one of our nurse practitioners after the above to review results and recommendations. [email or web address] Not available 05/21/2025 18:13:42 06/25/2025 [id number] RBUS in 6 months [email or web address] Not availab le 06/25/2025 10:04:01 Reason for Referral None Reported. Results Created Date Observation Date Name Description Value Unit Range Abnormal Flag Note LastModifiedBy Organization Detail LastModifiedTime 05/23/2005/24/2025 BASIC METAB OLIC PANEL (7) glucose 94 mg/dL 70-99 normal Not Available [facility] ([facility]) [address] [place], [address], 05/24/2025 08:23:43 05/23/2005/24/2025 BASIC METAB OLIC PANEL (7) BUN 14 mg/dL 6-24 normal Not Available [facility] ([facility]) [address] [facility], [place], [address], 05/24/2025 08:23:43 05/23/20 25 05/24/2025 BASIC METAB OLIC PANEL (7) creatinine 0.77 mg/dL 0.57-1 .00 normal Not Available [facility] ([facility]) [address] [facility] [place], [address], 05/24/2025 08:23:43 05/23/20 25 05/24/2025 BASIC METAB OLIC PANEL (7) eGFR 93 mL/mi n/1.7 3 >59 normal Not Available [facility] ([facility]) [address] [facility] [place], [address], 05/24/2025 08:23:43 05/23/20 25 05/24/2025 BASIC METAB OLIC PANEL (7) BUN/creatini ne ratio 18 9-23 normal Not Available [facility] ([facility]) [address] [place], [address], 05/24/2025 08:23:43 05/23/20 25 05/24/2025 BASIC METAB OLIC PANEL (7) sodium 139 mmol/ L 134-14 4 normal Not Available [facility] ([facility]) [address] [place], [address], 05/24/2025 08:23:43 05/23/20 25 05/24/2025 BASIC METAB OLIC PANEL (7) potassium 4.5 mmol/ L 3.5-5. 2 normal Not Available [facility] ([facility]) [address] [place], [address], 05/24/2025 08:23:43 05/23/20 25 05/24/2025 BASIC METAB OLIC PANEL (7) chloride 103 mmol/ L 96-106 normal Not Available [facility] ([facility]) [address] [place], [address], 05/24/2025 08:23:43 05/23/20 25 05/24/2025 BASIC METAB OLIC PANEL (7) carbon dioxide, total 22 mmol/ L 20-29 normal Not Available [facility] ([facility]) [address] [place], [address], 05/24/2025 08:23:43 05/23/20 25 05/23/2025 bladd er scan (PROC ) Urine Volume 53 Not Available [facility] [place] [address], [place], [address], 05/23/2025 08:22:41 05/23/20 25 05/23/2025 urina lysis , dipst ick, auto Leukocytes Trace Not Available [facility] [address], [place], [address], 05/23/2025 08:22:42 05/23/20 25 05/23/2025 urina lysis , dipst ick, auto Nitrite negati ve Not Available [facility] [address], [place], [address], 05/23/2025 08:22:42 05/23/20 25 05/23/2025 urina lysis , dipst ick, auto Urobilinogen .2 Not Available [facility] [address], [place], [address], 05/23/2025 08:22:42 05/23/20 25 05/23/2025 urina lysis , dipst ick, auto Protein Negati ve Not Available [place] [address], [place], [address], 05/23/2025 08:22:42 05/23/20 25 05/23/2025 urina lysis , dipst ick, auto pH 6.5 Not Available [place] [address], [place], [address], 05/23/2025 08:22:42 05/23/20 25 05/23/2025 urina lysis , dipst ick, auto Blood Non-He molyze d: Trace Not Available [facility] [place] [address], [place], [address], 05/23/2025 08:22:42 05/23/20 25 05/23/2025 urina lysis , dipst ick, auto Specific [place] 1.030 Not Available [facility] [place] [address], [place], [address], 05/23/2025 08:22:42 05/23/20 25 05/23/2025 urina lysis , dipst ick, auto Ketone Negati ve Not Available [facility] [place] [address], [place], [address], 05/23/2025 08:22:42 05/23/20 25 05/23/2025 urina lysis , dipst ick, auto Bilirubin Negati ve Not Available [facility] [place] [address], [place], [address], 05/23/2025 08:22:42 05/23/20 25 05/23/2025 urina lysis , dipst ick, auto Glucose Negati ve Not Available [facility] [place] [address], [place], [address], 05/23/2025 08:22:42 06/11/20 25 06/11/2025 MRI, abdom en, w/wo contr ast No observ ation record ed. [facility] [place] ([facility]) [address], [place], [address], 06/11/2025 10:45:26 Result Notes None recorded. Problems Name Problem SNOMED Code Status Onset Date Resolution Date Notes Provider Name and Address Organization Details Recorded Time Cyst of kidney 284005644 Active 025 FRANCISCO NOYOLA NP [address] [place], [address], [place] - [facility] 5 10:10:56 Dysuria 02823504 Active 025 SHYANNE SRSARAH null, [place] - [email or web address] 5 08:25:44 Lower abdominal pain 72466224 Active 025 FRANCISCO NOYOLA NP [address] [place], [address], [facility] [email or web address] 5 10:08:15 Problem Notes None recorded. Medical Equipment None Reported. Allergies No known drug allergies Medications Name Sig Start Date Stop Date Status Note LastModified by Organization Details LastModified Time lamotrigine 150 mg tablet TAKE 1 TABLET BY MOUTH TWICE A DAY active Not Available Not Available No t Available gabapentin 600 mg tablet TAKE 1 TABLET BY MOUTH EVERY NIGHT AT BEDTIME ONE HOUR BEFORE GOING TO BED 06/25 completed Not Available Not Available Not Available doxycycline hyclate 100 mg capsule TAKE 1 CAPSULE BY MOUTH TWICE A DAY 04/09 completed Not Available Not Available Not Available lamotrigine 200 mg tablet TAKE 1 TABLET BY MOUTH TWICE A DAY 06/25 completed Not Available Not Available Not Available ibuprofen 800 mg tablet 1 TABLET 3 TIMES A DAY NEEDED 05/23 completed Not Available Not Available Not Available fluconazole 150 mg tablet TAKE 1 TABLET BY MOUTH EVERY 72 HOURS 06/25 completed Not Available Not Available Not Available phenazopyri dine 200 mg tablet TAKE 1 TABLET BY MOUTH 3 TIMES A DAY NEEDED FOR BLADDER SPASMS. 06/25 completed Not Available Not Available Not Available prednisone 20 mg tablet TAKE 2 TABLETS (40 MG TOTAL) BY MOUTH DAILY. 05/23 completed Not Available Not Available Not Available metronidazo le 500 mg tablet TAKE 1 TABLET BY MOUTH TWICE A DAY WITH MEALS OR FOOD TO REDUCE STOMACH UPSET 04/09 completed Not Available Not Available Not Available phentermine 37.5 mg tablet TAKE 1 TABLET BY MOUTH EVERY DAY 06/25 completed Not Available Not Available Not Available peg-electro lyte solution 420 gram oral solution TAKE DIRECTED FOR COLONOSCO PY/GI PROCEDURE . SEE ADMINISTR ATION INSTRUCTI ONS 05/23 completed Not Available Not Available Not Available omeprazole 40 mg capsule,del ayed release TAKE 1 CAPSULE BY MOUTH 2 TIMES A DAY BEFORE BREAKFAST AND DINNER. 06/25 completed Not Available Not Available Not Available famotidine 20 mg tablet TAKE 1 TABLET BY MOUTH TWICE A DAY active Not Available Not Available No t Available trazodone 100 mg tablet TAKE 1 TO 2 TABLETS BY MOUTH EVERY BEDTIME 05/23 completed Not Available Not Available Not Available cephalexin 500 mg capsule TAKE 1 CAPSULE BY MOUTH TWICE A DAY 05/23 completed Not Available Not Available Not Available dexamethaso ne 4 mg tablet TAKE 1 TABLET BY MOUTH THREE TIMES A DAY 06/25 completed Not Available Not Available Not Available ibuprofen 600 mg tablet TAKE 1 TABLET BY MOUTH THREE TIMES A DAY NEEDED 05/23 completed Not Available Not Available Not Available methylpredn isolone 4 mg tablets in a dose pack TAKE 6 TABLETS ON DAY 1 DIRECTED ON PACKAGE AND DECREASE BY 1 TAB EACH DAY FOR A TOTAL OF 6 DAYS 05/23 completed Not Available Not Available Not Available albuterol sulfate HFA 90 mcg/actuati on aerosol inhaler INHALE 2 PUFFS EVERY 4 HOURS NEEDED FOR WHEEZING OR SHORTNESS OF BREATH 05/23 completed Not Available Not Available Not Available ipratropium bromide 42 mcg (0.06 %) nasal spray SPRAY 2 SPRAYS INTO EACH NOSTRIL EVERY DAY 05/23 completed Not Available Not Available Not Available pramipexole 1.5 mg tablet TAKE 6 TABLET BY MOUTH AT BEDTIME active Not Available Not Available No t Available amoxicillin 875 mg-potassiu m clavulanate 125 mg tablet TAKE 1 TABLET EVERY 12 HOURS DAILY 04/09 completed Not Available Not Available Not Available nitrofurant oin monohydrate /macrocryst als 100 mg capsule TAKE 1 CAPSULE BY MOUTH 2 TIMES A DAY WITH MEALS. 05/23 completed Not Available Not Available Not Available lubiproston e 24 mcg capsule TAKE 1 CAPSULE BY MOUTH 2 TIMES A DAY WITH MEALS. active Not Available Not Available No t Available desvenlafax ine succinate ER 100 mg tablet,exte nded release 24 hr TAKE 1 TABLET BY MOUTH EVERY DAY 05/23 completed Not Available Not Available Not Available Rexulti 3 mg tablet TAKE 1 TABLET BY MOUTH EVERY DAY active Not Available Not Available No t Available Rexulti 1 mg tablet TAKE 1 TABLET BY MOUTH EVERY DAY active Not Available Not Available No t Available Rexulti 0.5 mg tablet TAKE 1 TABLET BY MOUTH EVERY DAY 06/25 completed Not Available Not Available Not Available Rexulti 2 mg tablet TAKE 1 TABLET BY MOUTH EVERY DAY 06/25 completed Not Available Not Available Not Available Vraylar 1.5 mg capsule TAKE 1 CAPSULE BY MOUTH EVERY DAY active Not Available Not Available No t Available Trulance 3 mg tablet TAKE 1 TABLET BY MOUTH DAILY 06/25 completed Not Available Not Available Not Available Vitals Date Recorded Body height Body mass index (BMI) Body weight Provider Name and Address Organization Details Last Updated DateTime 05/23/2025 167.64 cm 25.8 kg/m2 44378.78 [facility] 05/23/2025 08:24:00 Date Recorded Body height Body mass index (BMI) Body weight Provider Name and Address Organization Details Last Updated DateTime 06/25/2025 167.64 cm 25 kg/m2 99735.82 [facility] 06/25/2025 09:48:05 Social History None recorded. Functional Status None recorded. Mental Status None recorded. Family History Nothing Reported. Medical History No medical history recorded. Gynecological HistoryNo gynecological history recorded. Obstetrics History GPAL:G 0 P 0 0 0 0 Past Encounters Encounter ID Performer Location Encounter Start Date Encounter Closed Date Diagnosis/Indication Diagnosis SNOMED-CT Code Diagnosis ICD10 Code Diagnosis IMO Codes Diagnosis Note [id number] Timoteo Humphreys MD [facility] [address] [place] [address] 05/23/2025 08:13:52 05/23/2025 08:39:57 Cyst of kidney 357161677 N28.1 029136 - Pt to undergo MRI abdomen then follow-up after for review of findings and recommenda tions. Blood work to be done prior to imaging to confirm sufficient renal function.- Further work-up pending findings. I advised pt that additional work-up or monitoring may be warranted depending on findings. I'd advise against surgical removal as cysts aren't a known source of pain. Surgical removal also comes with a high risk of complicati ons, which makes this option unfavorabl e. [id number] FRANCISCO NOYOLA NP [facility] [address] [place] [address] 06/25/2025 09:42:02 06/25/2025 10:25:21 Cyst of kidney 030884825 N28.1 75002369 Bosninak 1 and 2 which is benignRBUS in 6 months for Stability Lower abdominal pain 545 98619 R10.30 [id number] Patient describes pain the lower abdomen I advised this pain is unlikely associated with her kidney's and should follow-up with her GI specialist or PCP. Health Concerns Section Related Observation LastModified by Organization Detai ls LastModified Time None Recorded Concern Status LastModified by Organization Details LastModified Time None Recorded Advance Directives Directive None Recorded Payers Insurance Date Sequence Insurance Name Policy Number Policy Hector Covered Member ID Hector Member ID Guarantor Name 06/28/2025 1 [facility] (MEDICARE REPLACEMENT/A DVANTAGE - PPO) [id number] Laisha Oconnor [id number] Laisha Oconnor 06/22/2025 2 [place] Laisha Meltong [id number] Laisha Oconnor Notes Date Note Type Note Provider Name and Address Organization Details Recorded Time 05/23/2025 text/html ROS as noted in the HPI 50-year-old female referred by her PCP for incidental finding of what is described as a slightly complicated cyst in the upper pole of the right kidney measuring 3.2 cm on a complete abdominal ultrasound that was performed at [facility] on April 03, 2025 for the indication of left upper quadrant pain and bloating. Of note, the left kidney was noted to be entirely unremarkable. No other abnormalities were noted in the radiologic report. Pt admits to mild SHANNEN, no UUI. She voids 4x per day and 1x per night. She changes her pad once. Pt states she is not bothered by her mild urinary symptoms. She does not wish to pursure intervention at this time. UA = Trace blood Timoteo Humphreys MD [address] [place], [address], [place] - [email or web address] 05/23/2025 08:58:01 06/25/2025 text/html Laisha is a 50-year-old female who returns for incidental finding of what is described as a slightly complicated cyst in the upper pole of the right kidney measuring 3.2 cm on a complete abdominal ultrasound that was performed at [facility] on April 03, 2025 for the indication of left upper quadrant pain and bloating. Of note, the left kidney was noted to be entirely unremarkable. No other abnormalities were noted in the radiologic report.She presents today for follow-up with and MRI. A subsequent MRI revealed bilateral simple renal cysts, classified as Bosniak I and II, with no nodularity or enhancement. She denies any hematuria but reports intermittent, random right lower quadrant pain, which is not associated with meals. She describes associated severe bloating, stating she can look five months , and had an episode of being keeled over in pain yesterday. She denies the use of Tylenol or NSAIDs for pain. A prior workup with a wire preparation worker, including upper and lower endoscopies, reportedly found unexplained blood in the bowels. 06/11/25 MRI Abdomen: Bilaterally renal cyst without suspicious nodularity or masses. Bosniak 1 and 2 cysts. FRANCISCO NOYOLA NP [address] [place], [address], [place] - [facility] 06/25/2025 10:11:10 OBGyn Episode No OBEpisode recorded.
--- OUTSIDE RECORDS SUMMARY | 2025-07-15 23:41 | XMS_ITS | Clinical Summary ---
Author Organization [facility] Address [address] [place] [address] Care Team Providers Care Airplane Navigator Name Role Phone Derrick [place] Primary Care Provider Unav ailable Medications lamoTRIgine (LaMICtal) 200 MG TABLET DISPERSIBLE disintegrating tablet 0 02/01/20 19 Active traZODone HCl (DESYREL) 50 MG tablet 0 02/01/20 19 Active hydrOXYzine HCl (ATARAX) 25 MG tablet 0 02/01/20 19 Active Pramipexole Dihydrochloride (MIRAPEX) 1 MG tablet 0 02/01/20 19 Active Ibuprofen (ADVIL,MOTRIN) 800 MG tablet 0 02/01/20 19 Active SUMAtriptan Succinate (Imitrex) 100 MG tablet 0 02/01/20 19 Active FLUTICASONE PROPIONATE, NASAL, (FT Allergy Relief 24 HR) 50 MCG/ACT nasal spray 0 02/01/20 19 Active Ipratropium Vilas (ATROVENT) 0.06 % nasal spray 0 02/01/20 19 Active Brexpiprazole (Rexulti) 0.5 MG Tab 0 10/07/19 22 Active busPIRone HCl (BUSPAR) 5 MG tablet TAKE 1 TABLET EVERY 12 HOURS DAILY. 0 10/07/19 22 Active Prazosin HCl (MINIPRESS) 1 MG capsule 0 11/28/19 21 Active Desvenlafaxine Succinate ER 25 MG TABLET SR 24 HR 30 0 11/28/19 21 Active Desvenlafaxine Succinate (PRISTIQ) 50 MG 24 hr tablet 30 0 12/20/19 21 Active Lamotrigine (LaMICtal) 200 MG tablet 60 0 01/27/20 22 Active famotidine (PEPCID) 20 MG tablet 180 0 06/01/20 22 Active Sodium Sulfate-Mag Sulfate-KCl (Sutab) 4653-521-873 MG Tab 24 0 06/03/20 22 Active Ketorolac Tromethamine (TORADOL) 10 MG tablet PLEASE SEE ATTACHED FOR DETAILED DIRECTIONS 20 0 06/28/20 22 Active Desvenlafaxine Succinate (PRISTIQ) 100 MG 24 hr tablet 30 0 07/06/20 22 Active Baclofen 5 MG Tab 42 0 07/16/20 22 Active METRONIDAZOLE VAGINAL (METROGEL) 0.75 % vaginal gel 70 0 07/29/20 22 Active Gabapentin (NEURONTIN) 300 MG capsule 180 0 07/30/20 22 Active Brexpiprazole (Rexulti) 1 MG Tab 30 0 08/20/20 22 Active Baclofen (LIORESAL) 10 MG tablet 60 0 08/24/20 22 Active Pramipexole Dihydrochloride (MIRAPEX) 1.5 MG tablet 540 0 08/26/20 22 Active linaCLOtide (Linzess) 145 MCG Cap 30 0 09/22/19 23 Active Meloxicam (MOBIC) 15 MG tablet 30 0 10/06/19 23 Active Docusate Sodium (COLACE) 100 MG capsule TAKE 1 CAPSULE BY MOUTH 2 (TWO) TIMES A DAY. 10 0 10/30/19 23 Active linaCLOtide (Linzess) 290 MCG Cap 90 0 11/04/19 23 Active Ondansetron (ZOFRAN-ODT) 4 MG disintegrating tablet 8 0 11/12/19 23 Active Sucralfate (CARAFATE) 1 GM/10ML suspension 420 0 11/12/19 23 Active Amoxicillin (AMOXIL) 500 MG capsule 21 0 11/14/19 23 Active Ibuprofen (ADVIL,MOTRIN) 600 MG tablet 21 0 11/14/19 23 Active Active Problems Problem Noted Date Diagnosed Date Difficulty with CPAP use 08/20/2021 Insufficient sleep syndrome 06/17/2021 Restless leg syndrome 06/17/2021 Fatigue 01/30/2021 PTSD (post-traumatic stress disorder) 01/30/2021 MVP (mitral valve prolapse) 01/30/2021 Upper airway resistance syndrome 01/30/2021 Bipolar disorder, mixed 01/30/2021 Insomnia 01/30/2021 Overview (10/24/2023): Description: related to PTSD. Patient is engaged in therapy Snoring 01/27/2021 Obstructive sleep apnea, adult 01/27/2021 History of psychiatric treatment 01/31/2019 Family History Medical History Relation Name Comments Cancer (?Type) Other malignant kishan plasm : Other Diabetes Other diabetes mellit us : Other Hearing Loss Other deafness or hea ring loss : Other Hypertension Other hypertension : Other Relation Name Status Comments Other Social History Tobacco Use Types Packs/Day Years Used Date Smoking Tobacco: Never Assessed Comments:Smoking Status:Form er smoker Comments Unknown Sex and Gender Information Value Date Recorded Sex Assigned at Not on file Legal Sex Female 9:24 PM EDT Gender Identity Not on file Sexual Orientation Not on file Last Filed Vital Signs Vital Sign Reading Time Taken Comments Blood Pressure 110/68 04/29/2022 9:05 AM EDT RLE/Sitting RLE/Sitting Pulse 86 04/29/2022 9:05 AM EDT Temperature - - Respiratory Rate - - Oxygen Saturation 97% 04/29/2022 9:0 5 AM EDT RA Inhaled Oxygen Concentration - - Weight 73.5 kg (161 lb 15.9 oz) 04/29/2022 9:05 AM EDT Height 166.4 cm (5' 5.5 ) 04/29/2022 9: 05 AM EDT Body Mass Index 26.55 04/29/2022 9:05 AM EDT Plan of Treatment Health Maintenance Due Date Last Done Comments Hepatitis C Screening 1974 Pap Smear 1990 DTaP/Tdap/Td (1 - Tdap) 02/05/1992 Hep B (1 of 3 - 19+ 3-dose series) 1993 Mammogram/Breast Imaging 2014 Colon Cancer Screening 2019 Pneumococcal 50+ years (1 of 1 - PCV) 02/05/2024 Zoster (Shingrix) (1 of 2) 02/05/2024 COVID-19 Vaccine (2024-2 6 season) 2025 Influenza (#1) 2025 HPV Vaccine (No Doses Required) Completed Hep A Aged Out No longer eligi ble based on patient's age to complete this topic Hib Aged Out No longer eligi ble based on patient's age to complete this topic Meningococcal ACWY Aged Out No longer eligible based on patient's age to complete this topic Care Teams Airplane Navigator Relationship Specialty Start Date End Date Derrick [place] PCP - General 04/26/23
--- OUTSIDE RECORDS SUMMARY | 2025-07-15 23:41 | XMS_ITS | Encounter Summary ---
Author Organization [facility] Address [address] [place] [address] Care Team Providers Care Pcas Name Role Phone Shay Muse MD Primary Care Provider [phone] Shay Muse MD Unavailable Zeenat Fierro MD Unavailable [phone] Encounter Details Date Type Department Care Team (Late st Contact Info) Description 08/24/2022 Orders Only [facility] Department of [facility] [address] [place] [address] José Miguel Sheppard PA-C Social History Tobacco Use Types Packs/Day Years Used Date Smoking Tobacco: Every Day Cigarettes Smokeless Tobacco: Never Alcohol Use Standard Drinks/Week Comments Not Currently 0 (1 standard drink = 0.6 oz pur e alcohol) Hunger Vital Sign Answer Date Recorded Within the past 12 months, y ou worried that your food would run out before you got the money to buy more. Never true 06/19/20 22 Within the past 12 months, t he food you bought just didn't last and you didn't have money to get more. Never true 06/19/2022 Comments No Sex and Gender Information Value Date Recorded Sex Assigned at Not on file Legal Sex Female 4:21 AM EST Gender Identity Not on file Sexual Orientation Not on file documented as of this encounter Plan of Treatment Not on file documented as of this encounter Visit Diagnoses Not on filedocumented in this encounter Care Teams Pcas Relationship Specialty Start Date End Date Shay Muse MD [address] [facility] [address] [place] [address] PCP - General Internal Medicine 12/12/21 Shay Muse MD [address] [facility] [address] [place] [address] PCP - Insurance Payer PCP 10/18/23 Zeenat Fierro MD [address] [facility] [place] [address] Surgeon Neurosurgery 01/17/24 documented as of this encounter
--- OUTSIDE RECORDS SUMMARY | 2025-07-15 23:41 | XMS_ITS | Encounter Summary ---
Author Organization [facility] Address [address] [place] [address] Care Team Providers Care Corporate Tax Preparer Name Role Phone Shay Muse MD Primary Care Provider [phone] Ewelina Payton MD Unavailable [phone] Ewelina Payton MD Unavailable [phone] Zeenat Fierro MD Unavailable [phone] Cordell Turpin MD Unavailable Encounter Details Date Type Department Care Team (Late st Contact Info) Description 05/09/2025 Scanned Document [facility] ENDO PROC [facility] [address] [place] [address] Arya Mars MD [address] [facility] [address] [place] [address] Social History Tobacco Use Types Packs/Day Years Used Date Smoking Tobacco: Former Cigarettes 0.8 15 Q uit: 12/06/2024 Smokeless Tobacco: Never Comments:Trying to quit [...] Description 07/27/2025 10:30 AM EST Office Visit [facility] Breast Care & Surgery [address] [phone] Christian Subramanian MD [address] [place] [address] 09/04/2025 3:00 PM EST Procedure visit [address] [phone] 10/30/2025 9:30 AM EST Office Visit [facility] [address] [facility] [address] [place] [phone] Abby Lozano APRN [address] [place] [address] documented as of this encounter Procedures Procedure Name Priority Date/Time Associated Diagnosis Comments HX GASTROENTEROLOGY COLONOSCOPY-SCAN 05/09/2025 1:55 PM EDT HX GASTROENTEROLOGY UPPER ENDOSCOPY-SCAN 05/09/2025 1:42 PM EDT PATHOLOGY REPORT 05/09/2025 12:0 0 AM EDT documented in this encounter Results * HX GASTROENTEROLOGY COLONOSCOPY-SCAN (05/09/2025 1:55 PM EDT) us Arya Mars MD HX AMB PROCEDURES Final Resu lt * HX GASTROENTEROLOGY UPPER ENDOSCOPY-SCAN (05/09/2025 1:42 PM EDT) us Arya Mars MD HX AMB PROCEDURES Final Resu lt * Pathology (05/09/2025 12:00 AM EDT) us Arya Mars MD PATHOLOGY/CYTOLOGY ORDERABLE S Final Result documented in this encounter Visit Diagnoses Not on filedocumented in this encounter Care Teams Corporate Tax Preparer Relationship Specialty Start Date End Date Shay Muse MD [address] [place] [address] [address] [place] [address] PCP - General Internal Medicine 03/13/21 Zeenat Fierro MD [address] [place] [id number] PCP - Internal Medicine Surgery, Neurosurgery 02/09/23 Ewelina Payton MD [address] [place] [address] 04/19/20 Ewelina Payton MD [address] [place] [address] 01/26/08 Cordell Turpin MD [address] [facility] [address] [place] [address] Video Tape Transferrer 05/01/25 documented as of this encounter
--- OUTSIDE RECORDS SUMMARY | 2025-07-15 23:41 | XMS_ITS | Encounter Summary ---
Author Organization [facility] Address [address] [place] [address] Care Team Providers Care Director Airport Name Role Phone Shay Muse MD Primary Care Provider [phone] Eewlina Payton MD Unavailable [phone] Ewelina Payton MD Unavailable [phone] Zeenat Fierro MD Unavailable [phone] Cordell Turpin MD Unavailable Encounter Details Date Type Department Care Team (Late st Contact Info) Description 12/09/2022 Scanned Document [facility] [address] [place] [address] [place] [address] Spencer Portillo MD [address] [facility] [address] [place] [id number] Social History Tobacco Use Types Packs/Day Years Used Date Smoking Tobacco: Every Day Cigarettes 0.8 15 Smokeless Tobacco: Never Alcohol Use Standard Drinks/Week Comments Yes 10 (1 standard drink = 0.6 oz pu re alcohol) AUDIT-C Answer Date Recorded Q1: How often [...] was confirmed or suspected to have Coronavirus/COVID-19? No / Unsure 12/07/2022 1:29 PM EDT documented as of this encounter Plan of Treatment Upcoming Encounters Date Type Department Care Team (Late st Contact Info) Description 07/27/2025 10:30 AM EST Office Visit [facility] Breast Care & Surgery [address] [phone] Christian Subramanian MD [address] [place] [address] 09/04/2025 3:00 PM EST Procedure visit [address] [phone] 10/30/2025 9:30 AM EST Office Visit [facility] [address] [phone] Abby Lozano APRN [address] [place] [address] documented as of this encounter Procedures Procedure Name Priority Date/Time Associated Diagnosis Comments PATHOLOGY REPORT 12/09/2022 12:0 0 AM EDT documented in this encounter Results * PATHOLOGY REPORT (12/09/2022 12:00 AM EDT) us Spencer Portillo MD PATHOLOGY/CYTOLOGY ORDERABLES F inal Result documented in this encounter Visit Diagnoses Not on filedocumented in this encounter Care Teams Director Airport Relationship Specialty Start Date End Date Shay Muse MD [address] [place] [address] [address] [facility] [address] [place] [address] PCP - General Internal Medicine 03/13/21 Zeenat Fierro MD [address] [place] [phone] PCP - Internal Medicine Surgery, Neurosurgery 02/09/23 Ewelina Payton MD [address] [place], [place] [phone] 04/19/20 Ewelina Payton MD [address] [place] [phone] 01/26/08 Cordell Turpin MD [address] [place] [address] [address] [place] [address] Car Body Mechanic 05/01/25 documented as of this encounter
--- OUTSIDE RECORDS SUMMARY | 2025-07-15 23:41 | XMS_ITS | Clinical Summary ---
Author Organization [facility] Address [address] [place] [address] Care Team Providers Care Fish Packer Name Role Phone Carri Arriaza MD Primary Care Provider [phone] Ewelina Payton MD Unavailable [phone] Ewelina Payton MD Unavailable [phone] Zeenat Fierro MD Unavailable [phone] Cordell Turpin MD Unavailable Allergies No known active allergies Medications chlorhexidine (PERIDEX) 0.12 % oral solution Apply 15 mL to the mouth or throat See Admin Instructions. once every other day Active famotidine (PEPCID) 20 MG tabletIndications :Gastroesophageal reflux disease, unspecified whether esophagitis present TAKE 1 TABLET BY MOUTH TWICE A DAY 180 tablet 3 04/12/20 24 Active pramipexole (miraPEx) 1.5 MG tablet TAKE 6 TABLET BY MOUTH AT BEDTIME 05/06/20 24 Active ibuprofen (MOTRIN) 600 MG tablet Take 1 tablet (600 mg total) by mouth 3 (three) times a day as needed for mild pain or moderate pain. 11/27/19 25 Active LaMICtal 150 MG tablet Take 150 mg by mouth 2 (two) times a day. 11/29/19 25 Active phentermine (ADIPEX-P) 37.5 MG tablet Take 37.5 mg by mouth. 12/14/19 25 Active lubiprostone (AMITIZA) 24 MCG capsuleIndication s:Chronic idiopathic constipation Take 1 capsule (24 mcg total) by mouth 2 (two) times a day with meals. 180 capsule 3 02/15/20 25 026 Active traZODone (DESYREL) 100 MG tablet Take by mouth. 03/19/20 25 Active hydrOXYzine HCl (ATARAX) 25 MG tablet TAKE 1-2 TABLET THREE TIMES A DAY NEEDED FOR ANXIETY 06/25/20 25 Active Caplyta 10.5 MG Cap take 1 capsule by mouth in the evening 07/04/20 25 Active busPIRone (BUSPAR) 5 MG tabletIndications :Encounter for gynecological examination without abnormal finding,Acute vaginitis Take 1 tablet by mouth 3 (three) times a day. 06/10/20 22 024 Discontinued (Discontinue d by Another Clinician - No E-Cancel/No AVS) Rexulti 3 MG tablet Take 3 mg by mouth daily. 05/02/20 24 025 Discontinued (Med List Clean-up/Old Med - No E-Cancel/No AVS) Tenapanor HCl (Ibsrela) 50 MG tabletIndications :Irritable bowel syndrome with constipation Take 1 tablet (50 mg total) by mouth 2 (two) times a day with breakfast and dinner. 180 tablet 3 03/28/20 25 025 Discontinued (Med List Clean-up/Old Med - No E-Cancel/No AVS) phenazopyridine (PYRIDIUM) 200 MG tabletIndications :UTI symptoms,Acute cystitis without hematuria Take 1 tablet (200 mg total) by mouth 3 (three) times a day as needed for bladder spasms. 6 tablet 04/03/20 25 025 Discontinued (Med List Clean-up/Old Med - No E-Cancel/No AVS) Rexulti 1 MG tablet Take 1 mg by mouth daily. 04/02/20 25 025 Discontinued (Med List Clean-up/Old Med - No E-Cancel/No AVS) Active Problems Problem Noted Date Diagnosed Date Numbness 11/26/2024 Tubular adenoma of colon 04/02/2023 Assessment & Plan (04/02/2023 9:57 AM EDT): Diminutive TA on 2022 cscope Recall 2027 Intussusception 11/05/2022 Assessment & Plan (11/05/2022 7:47 AM EST): Identified at recent ED visit showing small bowel intussusception within the left mid to lower abdomen on CT scan Discussed findings with Dr. Portillo--advised continued tx for constipation and obtain enterography for further evaluation of small intestine Pt opts for MRI enterography--will send over to [facility] for comparison to recent CT Will increase linzess to 290 mcg daily and do a miralax colonoscopy prep to clear current stool burden Will try to move up EGD/colon without bender Follow up after procedures Chronic idiopathic constipation 09/22/2022 Assessment & Plan (04/02/2023 9:55 AM EDT): She has only pellets daily Not currently taking the linzess + bloating EGD/colon/capsule all non-remarkable MRE with jejunal thickening- no correlating finding on capsule Never has had diarrhea Plan: 1. Take linzess 290 daily x 6 months 2. I am hopeful this will also help with UGI motility/symptoms 3. If this does not work, would try prior auth for trulance vs amitiza 24 BID 4. Six month follow up. Assessment & Plan (11/05/2022 7:48 AM EST): Will increase linzess to 290 mcg daily and do a miralax prep to clear current stool burden Colonoscopy with 2 day prep Discussed patients diet and suggested changes, such as, increasing fiber with more fruits, veggies, or supplements. Pt should also increase fluid intake to at least 60 oz of water or water based drinks daily. We discussed different pharmaceutical options and their risks, benefits, and how to correctly take them and stay consistent. Abdominal bloating 09/22/2022 Back spasm 06/29/2022 Normocytic anemia 06/29/2022 Pain of upper abdomen 06/03/2022 Assessment & Plan (06/03/2022 10:09 AM EDT): EGD unremarkable Minimal improvement with PPI daily Increase GERD regimen as above Constipation regimen as below Will order abd ultrasound to eval GB, pancreas, etc Nausea 06/03/2022 Change in bowel function 06/03/2022 Assessment & Plan (06/03/2022 10:11 AM EDT): Patient was recommended lifestyle changes of daily ambulation, 60 oz water-based fluids, and daily fiber supplement with a meal. Use OTC miralax daily. Dysphagia 04/23/2021 Assessment & Plan (04/23/2021 9:36 AM EDT): Modified barium swallow showed no significant abnormalities, entire esophagus not visualized on exam Will schedule EGD for further evaluation to rule out strictures, etc An endoscopy will be scheduled based on current indication. The indications, prep, alternatives and the procedure were thoroughly explained. There is no contraindication to endoscopy. All questions were answered. The potential risks including but not limited to bleeding, infection, and perforation were also explained. Gastroesophageal reflux disease 04/23/2021 Assessment & Plan (04/02/2023 9:59 AM EDT): Asymptomatic currently on PPI BID and H2B BID Plan: I am hopeful with improvement in her lower GI symptoms and improved bowel flow, her UGI symptoms will also improve and we can start to taper her down Attempt taper down to PPI once nightly at next follow up. Assessment & Plan (11/05/2022 7:45 AM EST): EGD unremarkable in 05/2021 Symptoms have been more recently improved with omeprazole 40 mg BID and famotidine 20 mg BID Due to recent intussusception, will cancel EGD with bendre and reschedule as regular EGD Continue GERD diet Follow up after procedures Avoid/limit tobacco, alcohol, chocolate, peppermint, caffeine, greasy foods, spicy foods, and acidic foods such as citrus and tomato. Eat smaller, more frequent meals, and do not eat within 2 hours of bedtime. If you have night-time symptoms, elevate the head of the bed 6 to 12 inches. An endoscopy will be scheduled based on current indication. The indications, prep, alternatives and the procedure were thoroughly explained. There is no contraindication to endoscopy. All questions were answered. The potential risks including but not limited to bleeding, infection, and perforation were also explained. Assessment & Plan (06/03/2022 10:09 AM EDT): EGD 05/2021 unremarkable Increase Omeprazole to 40 mg BID Use Pepcid 20-40 mg BID prn Patient was advised lifestyle modifications: avoid dietary triggers, ETOH, NSAIDs, overeating or skipping meals, or late night eating. Assessment & Plan (04/23/2021 9:33 AM EDT): Pt would like to hold off on using medications at this time Will schedule EGD due to dysphagia and history of GERD Avoid/limit tobacco, alcohol, chocolate, peppermint, caffeine, greasy foods, spicy foods, and acidic foods such as citrus and tomato. Eat smaller, more frequent meals, and do not eat within 2 hours of bedtime. If you have night-time symptoms, elevate the head of the bed 6 to 12 inches. We discussed the minimal potential risk with alf PPI use. Based on AGA expert review the quality of evidence behind lobsterman kidney disease, dementia, bone fractures, and infection with PPI use is low. The current data suggests that lobsterman PPI use does not require routine screening or monitoring of bone density, kidney function, magnesium, or vitamin B levels. There is no clinical evidence to suggest routine intake of calcium, vitamin b12 or magnesium, with PPI use, beyond recommended dietary allowance. Colon cancer screening 04/23/2021 Assessment & Plan (11/05/2022 7:48 AM EST): Colon 05/2021 with poor bowel prep due to n/v with prep Will reschedule and use 2 day prep with miralax/sutab Assessment & Plan (06/03/2022 10:11 AM EDT): Colon 05/2021 with poor bowel prep due to n/v with prep Will use sutab Zofran prn for nausea Continue bowel regimen as below Assessment & Plan (04/23/2021 9:32 AM EDT): High fiber diet. Recommend adding metamucil once daily Adenoma-carcinoma sequence discussed. Last colon: none Discussed scheduling first screening colonoscopy as patient is over age 45; pt is agreeable A colonoscopy will be scheduled based on current indication. The indications, prep, alternatives and the procedure were thoroughly explained. There is no contraindication to colonoscopy. All questions were answered. The potential risks including but not limited to bleeding, infection, and perforation were also explained. 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 Dyssynergia (Primary Dx); Irritable bowel syndrome with constipation; Tubular adenoma of colon; Gastroesophageal reflux disease without esophagitis; Abdominal bloating; Pain of upper abdomen; Nausea and vomiting, unspecified vomiting type 05/17/2025 Orders Only [address] [phone] Abby Lozano TRUCK LOAD[employer] OVER[employer] CRANE Dyssynergia (Primary Dx) 05/09/2025 1:45 PM EDT - 05/09/2025 2:30 PM EDT Surgery [facility] [address] [place] [phone] Arya Mars MD COLONOSCOPY 05/09/2025 1:38 PM EDT Anesthesia Event [facility] [address] [place] [phone] Andrew Menendez MD Koerner, Krista L, PACKAGE PICK UP 05/09/2025 12:36 PM EDT - 05/09/2025 11:59 PM EDT Hospital Encounter [facility] [address] [place] [phone] Arya Mars MD Discharge Disposition: Home or Self Care 05/09/2025 Scanned Document [facility] [address] [place] [phone] Arya Mars MD from Last 3 Months Immunizations Immunization Administration Dates Next Due Tdap 11/18/2019,06/26/2015 Family History Medical History Relation Name Comments No Known Problems Brother Colon polyps Father Robby Diabetes Father Robby Heart attack Father Robby Clogged arterie s caught before heart attack Hypertension Father Robby Learning disabilities Father Robby Ulcers Father Robby No Known Problems Half-Sister 1 Alcohol abuse Maternal Aunt 1 Roshni Ovarian cancer Maternal Aunt 1 Roshni No Known Problems Maternal Grandfather Anxiety disorder Maternal Grandmother Leora Breast cancer Maternal Grandmother Leora Actual ly my father's mother Cancer, other Maternal Grandmother Leora Lung cancer Maternal Grandmother Leora Mental illness Maternal Grandmother Leora Dementia Maternal Uncle Mariangel Alatorre No Known Problems Mother Breast cancer Other Breast cancer Paternal Aunt 1 ?? No Known Problems Paternal Grandfather Breast cancer Paternal Grandmother Amparo Dementia Paternal Grandmother Amparo Stroke Paternal Grandmother Amparo No Known Problems Paternal Uncle 1 Alcohol abuse Paternal Uncle 2 Jonny Learning disabilities Sister Karla Oconnor defects Son 1 Keaton Mcpherson Mild to mode rate hearing loss. Rt kidney small attached to lt Genetic Screening Son 1 Keaton Mcpherson Learning disabilities Son 2 López Hamilton Relation Name Status Comments Brother Alive Father Robby Alive Half-Sister 1 Alive Half-Sister 2 Alive Maternal Aunt 1 Roshni Alive Maternal Aunt 2 Alive Maternal Aunt 3 (Age 72) Maternal Grandfather (Age 60's) Maternal Grandmother Leora (Age 84) Maternal Uncle Mariangel Alatorre Alive Mother Alive Nephew 1 Alive Nephew 2 Alive Niece Alive Niece/Nephew 1 Alive Niece/Nephew 2 Alive Other (Age 80-90) Paternal Aunt 1 ?? Alive Paternal Aunt 2 Alive Paternal Grandfather (Age 81) Paternal Grandmother Amparo (Age 63) Paternal Great-Grandmother Alive Paternal Uncle 1 Alive Paternal Uncle 2 Jonny Alive Sister Karla Oconnor Alive Son 1 Keaton Mcpherson Alive Son 2 López Hamilton Alive Son 3 Alive Son 4 Alive Social History Tobacco Use Types Packs/Day Years [...] Orientation Heterosexual (straight) 02/09 2:43 PM EDT Last Filed Vital Signs Vital Sign Reading Time Taken Comments Blood Pressure 110/70 07/10/2025 11:17 AM EDT Pulse 91 07/10/2025 11:17 AM EDT Temperature 36.6 C (97.9 F) 05/09/2025 2:25 PM EDT Respiratory Rate 16 05/09/2025 2:46 PM EDT Oxygen Saturation 98% 05/09/2025 2:46 PM EDT Inhaled Oxygen Concentration - - Weight 70.5 kg (155 lb 6.4 oz) 07/10/2025 11:17 AM EDT Height 167.6 cm (5' 6 ) 07/10/2025 11:17 AM EDT Body Mass Index 25.08 07/10/2025 11:17 AM EDT Plan of Treatment Upcoming Encounters Date Type Department Care Team (Late st Contact Info) Description 07/27/2025 10:30 AM EST Office Visit [facility] [address] [place] [address] Christian Subramanian MD [address] [place] [address] 09/04/2025 3:00 PM EST Procedure visit [facility] [address] [place] [phone] 10/30/2025 9:30 AM EST Office Visit [facility] [address] [facility] [address] [place] [phone] Abby Lozano APRN [address] [place] [phone] Health Maintenance Due Date Last Done Comments Hepatitis B Vaccines (1 of 3 - 19+ 3-dose series) 1993 Pneumococcal Vaccines 50+ (1 of 2 - PCV) 1993 Lung Cancer Screening (LDCT) 02/05/2024 Zoster (Shingles) Vaccine (1 of 2) 02/05/2024 Influenza Vaccine 04/20/2025 COVID-19 Vaccine (3 - 2024-2 6 season) 2025 01/28/2021, 01/07/2021 Pap Smear (Ages 21-65) 05/26/2026 05/26/2023 Mammogram 10/04/2026 10/04/2024, 07/22, 01/20/2022, Additional history exists DTaP/Tdap/Td Vaccines (3 - T d or Tdap) 11/17/2029 11/18/2019, 06/26/2015 Colonoscopy 05/09/2035 05/09/2025, 04/21, 12/09/2022, Additional history exists RSV Vaccine 50 years and old er and Patients (1 - 1-dose 75+ series) 2049 HIV Screening Completed 12/15/2024 Hepatitis C Virus Screening Completed 12/15/2024 Procedures Procedure Name Priority Date/Time Associated Diagnosis Comments ANORECTAL MANOMETRY Routine 05/11/2025 10:07 AM EDT Irritable bowel syndrome with constipation HX GASTROENTEROLOGY COLONOSCOPY-SCAN 05/09/2025 1:55 PM EDT HX GASTROENTEROLOGY UPPER ENDOSCOPY-SCAN 05/09/2025 1:42 PM EDT ENDOSCOPY UPPER 05/09/2025 1:38 PM EDT Black stools Special Needs *PT REQUESTS TO BE DONE LATE POSSIBLE D/T RIDE* COLONOSCOPY 05/09/2025 1:38 PM EDT Black stools Special Needs *PT REQUESTS TO BE DONE LATE POSSIBLE D/T RIDE* PATHOLOGY REPORT 05/09/2025 12:00 AM EDT HIV 1/2 AG/AB CMIA REFLEX TO CONFIRMATION Routine 12/15/2024 2:34 PM EDT Screen for STD (sexually transmitted disease) HEPATITIS C VIRUS (HCV) ANTIBODY Routine 12/15/2024 2:34 PM EDT Screen for STD (sexually transmitted disease) MG SCREENING DIGITAL BREAST LESLEY- BILATERAL Routine 10/04/2024 9:13 AM EST THINPREP PAP(SUPERVISOR CELL MAINTENANCE) HPV SCR RFX HPV 16,18/45 Routine 05/26/2023 11:18 AM EDT Encounter for gynecological examination without abnormal finding Acute vaginitis from Last 3 Months or Most Recently Relevant to Health Maintenance Results * Anorectal Manometry (05/11/2025 10:07 AM EDT) Frandy Schilling MD GI PROCEDURE ORDERABLES Final Re sult * HX GASTROENTEROLOGY COLONOSCOPY-SCAN (05/09/2025 1:55 PM EDT) Arya Mars MD HX AMB PROCEDURES Final Resu lt * HX GASTROENTEROLOGY UPPER ENDOSCOPY-SCAN (05/09/2025 1:42 PM EDT) Arya Mars MD HX AMB PROCEDURES Final Resu lt * Pathology (05/09/2025 12:00 AM EDT) us Arya Mars MD PATHOLOGY/CYTOLOGY ORDERABLE S Final Result * HIV 1/2 Ag/Ab CMIA Reflex to Confirmation (12/15/2024 2:34 PM EDT) HIV Ag/Ab, 4th Gen NON-REACT KOURTNEY NON-REACT KOURTNEY [employer] [facility] [employer] Comment: HIV-1 antigen and HIV-1/HIV-2 antibodies were not detected. There is no laboratory evidence of HIV infection. PLEASE NOTE: This information has been disclosed to you from records whose confidentiality may be protected by state law. If your state requires such protection, then the state law prohibits you from making any further disclosure of the information without the specific written consent of the person to whom it pertains, or as otherwise permitted by law. A general authorization for the release of medical or other information is NOT sufficient for this purpose. For additional information please refer to http://[employer]/faq/EWO028 (This link is being provided for informational/ educational purposes only.) The performance of this assay has not been clinically validated in patients less than 2 years old. Blood Blood specimen / Unknown 12/15/2024 2:34 PM EDT 12/15/2024 2:35 PM EDT Barby Solis PA-C LAB BLOOD ORDERABLES Lyubov l Result Performing Organization Address City/State/[facility] Co de Phone Number [employer] [address] [place] [phone] * HEPATITIS C VIRUS (HCV) ANTIBODY (12/15/2024 2:34 PM EDT) Hepatitis C Antibody NON-REACT KOURTNEY NON-REACT KOURTNEY [facility] [employer] Comment: HCV antibody was non-reactive. There is no laboratory evidence of HCV infection. In most cases, no further action is required. However, if recent HCV exposure is suspected, a test for HCV RNA (test code 99342) is suggested. For additional information please refer to http://[employer]/faq/YBJ67t6 (This link is being provided for informational/ educational purposes only.) Blood Blood specimen / Unknown 12/15/2024 2:34 PM EDT 12/15/2024 2:35 PM EDT us Barby Solis PA-C LAB BLOOD ORDERABLES Lyubov l Result Performing Organization Address City/State/[facility] Co de Phone Number [employer] [address] [place] [phone] * MG SCREENING DIGITAL BREAST LESLEY- BILATERAL (10/04/2024 9:13 AM EST) Anatomical Region Laterality Modality Other 10/04/2024 9:00 AM EST 10/04/2024 9:00 AM EST Impressions 10/08/2024 1:12 PM EST There is no mammographic evidence of malignancy. Routine follow-up mammogram in 1 year is recommended. The patient will receive a lay summary of the results of this breast imaging exam. Lay summaries for mammography examinations will also identify the patients personal breast tissue composition as required by state law. BIRADS Category 1: Negative ATTESTATION STATEMENT: This study was interpreted by Dr. Ky Alexander working under the direct supervision of Dr. Arnulfo Mosley. I personally reviewed the images and the Residents preliminary report and agree with the report as it is now presented. Thank you for referring your patient to us, Arnulfo Mosley MD [phone] (Electronically Signed - 10/08/2024 13:12) Copy: TRACY REBOLLEDO MD [facility] [place] [address] [place] [address] [phone] CARRI ARRIAZA MD [address] [place] [address] Narrative 10/08/2024 1:12 PM EST HISTORY: Patient is 49 years old and is seen for screening. The patient has no personal history of breast or ovarian cancer. The patient has the following family history of breast cancer: paternal grandmother, at age 60, breast cancer. FILMS COMPARED: Comparison is made with prior exams dating back to 2020. LESLEY STATEMENT: Computer-aided detection was utilized by the radiologist in the interpretation of this examination. 3D tomosynthesis digital mammographic images were obtained using standard projections. MAMMOGRAM FINDINGS: The breasts are heterogeneously dense, which may obscure small masses. (ACR BIRADS density Category c) * No suspicious masses, calcifications or other abnormalities are seen in either breast. Procedure Note Arnulfo Mosley MD - 10/08/2024 HISTORY: Patient is 49 years old and is seen for screening. The patient has no personal history of breast or ovarian cancer. The patient has the following family history of breast cancer: paternalgrandmother, at age 60, breast cancer. FILMS COMPARED: Comparison is made with prior exams dating back to 2020. LESLEY STATEMENT: Computer-aided detection was utilized by the radiologist in theinterpretation of this examination. 3D tomosynthesis digital mammographic images were obtained using standardprojections. MAMMOGRAM FINDINGS: The breasts are heterogeneously dense, which may obscure small masses.(ACR BIRADS density Category c) * No suspicious masses, calcifications or other abnormalities are seen ineither breast. IMPRESSION: There is no mammographic evidence of malignancy. Routine follow-up mammogram in 1 year is recommended. The patient will receive a lay summary of the results of this breastimaging exam. Lay summaries for mammography examinations will alsoidentify the patients personal breast tissue composition as required [facility]. BIRADS Category 1: Negative ATTESTATION STATEMENT: This study was interpreted by Dr. Ky Alexander working under the directsupervision of Dr. Arnulfo Mosley. I personally reviewed the images and the Residents preliminary report andagree with the report as it is now presented. Thank you for referring your patient to us, Arnulfo Mosley MD [phone] (Electronically Signed - 10/08/2024 13:12) Copy: TRACY REBOLLEDO MD [facility] [place] [address] [place] [address] [phone] CARRI ARRIAZA MD [address] [place] [address] )[phone] us Generic Provider IMG LEGACY PROCEDURES Final Res ult * ThinPrep Pap(Hotel Service Manager) HPV Scr Rfx HPV 16,18/45 (05/26/2023 11:18 AM EDT) 05/26/2023 11:1 8 AM EDT Narrative [facility] - 05/31/2023 2:43 PM EDT To view the final report click the scan hyperlink below. Tracy Rebolledo MD LAB AMB PATH/CYTO ORDERABLES Final Result Performing Organization Address City/[facility] Co de Phone Number [facility] [address] [place] [address], from Last 3 Months or Most Recently Relevant to Health Maintenance Insurance [facility] MEDIC[facility] [id number] [place] [address] [facility]ICARE [id number] [place] [address] [employer] [facility] MEDICARE [id number] [place] [address] [facility] MEDIC[facility] Advance Directives * Full Code (Latest Code Status on File) Date Activated Date Inactivated Comments 11/26/2024 4:01 PM * Full Code Date Activated Date Inactivated Comments 06/29/2022 5:43 AM 02/09/2023 1:05 PM Question Answer Comments Decision Thoroughly Discussed with: Patient Care Teams Fish Packer Relationship Specialty Start Date End Date Carri Arriaza MD [address] [place] [address] [address] [place] [address] PCP - General Internal Medicine 03/13/21 Zeenat Fierro MD [address] [place] [phone] PCP - Internal Medicine Surgery, Neurosurgery 02/09/23 Ewelina Payton MD [address] [place] [address] 04/19/20 Ewelina Payton MD [address] [place] [address] 01/26/08 Cordell Turpin MD [address] [place] [phone] Associate Account Director 05/01/25
--- OUTSIDE RECORDS SUMMARY | 2025-07-15 23:41 | XMS_ITS | Clinical Summary ---
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 2 Active lubiprostone (AMITIZA) 24 mcg capsule Take by mouth daily. 3 Active pramipexole (MIRAPEX) 1.5 mg tablet Take 7 tablets (10.5 mg total) by mouth every night at bedtime. 2 Active traZODone (DESYREL) 50 mg tablet Take 1 tablet (50 mg total) by mouth every night at bedtime. Active Vraylar 1.5 mg capsule Take 1 capsule (1.5 mg total) by mouth 1 (one) time each day. Active lamoTRIgine (LaMICtal) 150 mg tablet Take 1 tablet (150 mg total) by mouth 2 (two) times a day. 5 Active diazePAM (VALIUM) 5 mg tablet Take 1 tablet (5 mg total) by mouth every 6 hours as needed. 4 06/25/20 25 Discontinu ed(Therapy completed) lamoTRIgine (LaMICtal) 200 mg tablet Take 1 tablet (200 mg total) by mouth 2 (two) times a day. 2 06/25/20 Discontinu ed(Alterna te therapy) omeprazole (PriLOSEC) [address] capsule TAKE 1 CAPSULE BY MOUTH 2 TIMES A DAY BEFORE BREAKFAST AND DINNER. 2 06/25/20 Discontinu ed(Therapy completed) brexpiprazole (Rexulti) 0.5 mg tablet Take 3 mg by mouth daily. 4 06/25/20 Discontinu ed(Therapy completed) Active Problems Problem Noted Date Diagnosed Date Intussusception ([facility] V24, [facility] V28) 07/26 Coronary artery calcification 06/07/2023 Constipation 10/29/2022 Intussusception of small bowel ([facility] V24, [facility] V28) 10/29/2022 Sprain and strain of right wrist 10/16/2019 Borderline personality disorder ([facility] V24, [facility] V28) 07/24/2015 MDD (major depressive disord er), recurrent severe, without psychosis ([facility] V24, [facility] V28) 07/24/2015 Encounters Date Type Department Care Team Description 06/25/2025 2:15 PM EDT Office Visit [facility] Cardiology [address] [address] Cordell Turpin MD Coronary artery calcification (Primary Dx); Dizziness; Near syncope from Last 3 Months Immunizations Immunization Administration Dates Next Due Tdap Tetanus diptheria acell ular pertussis (Boostrix; Adacel) 7yo and older 11/18/2019 Surgical History Surgery Date Site/Laterality Comments BACK SURGERY PROCEDURE:BACK SURGERY;COMMENT:L5-S1 Fusion MOUTH SURGERY PROCEDURE:MOUTH SURGERY SECTION PROCEDURE: SECTION COLONOSCOPY 05/28/2021 N/A PROCEDURE:COLONOSCOPY;COMMENT :Procedure: COLONOSCOPY; Surgeon: Spencer Portillo MD; Location: [facility]; Service: Gastroenterology; Laterality: N/A; UPPER GASTROINTESTINAL ENDOSCOPY 05/28/2021 N/A PROCEDURE:UPPER GASTROINTESTINAL ENDOSCOPY;COMMENT:Procedure: UPPER ENDOSCOPY-EGD; Surgeon: Spencer Portillo MD; Location: [facility]; Service: Gastroenterology; Laterality: N/A; TONSILLECTOMY PROCEDURE:TONSILLECTOMY;COMME NT:as teenager FOOT FASCIOTOMY 07/01/2023 Right PROCEDURE:FASCIOTOMY FOOT / TOE;COMMENT:Procedure: RIGHT FASCIOTOMY FOOT / TOE; Surgeon: Jennifer Bender DPM; Location: [facility]; Service: Podiatry; Laterality: Right; Medical History Medical History Date Comments Depression DX:Depression Anxiety DX:Anxiety PTSD (post-traumatic stress disorder) DX:PTSD (post-traumatic stress disorder) Bipolar affective disorder ( [facility] V24, [facility] V28) DX:Bipolar affective disorde r ([facility]) Sleep apnea, obstructive 05/14/2021 DX:Slee p apnea, obstructive;COMMENT:cpap new use at present, otherwise uses mouthguard Mitral valve prolapse DX:Mitral valve prolapse Intussusception ([facility] V24 , [facility] V28) DX:Intussusception ([facility]) Family History Medical History Relation Name Comments Coronary artery disease Father Diabetes Father Heart disease Father Hyperlipidemia Father Hypertension Father Cancer Paternal Grandmother Relation Name Status Comments Brother Alive Father Alive Mother Alive Paternal Grandmother Sister 1 Alive Sister 2 Alive Social History Tobacco Use Types Packs/Day Years Used Date Smoking Tobacco: Every Day Cigarettes 1 30 Started: 07/23/1995 Passive Smoke Exposure: Current Smokeless Tobacco: Never Tobacco Cessation:Ready to Q uit: Not Asked; Counseling Given: Not Answered Alcohol Use Standard Drinks/Week Comments Yes 3 (1 standard drink = 0.6 oz pur e alcohol) Comments Unknown Sex and Gender Information Value Date Recorded Sex Assigned at Not on file Legal Sex Female 10:09 AM EST Gender Identity Not on file Sexual Orientation Not on file Obstetrics History Last Filed Vital Signs Vital Sign Reading Time Taken Comments Blood Pressure 108/62 06/25/2025 2:23 PM EDT Pulse 64 06/25/2025 2:23 PM EDT Temperature 37.1 C (98.7 F) 03/23/2025 7:46 AM EDT Respiratory Rate 18 03/23/2025 7:46 AM EDT Oxygen Saturation 98% 06/25/2025 2:23 PM EDT Inhaled Oxygen Concentration - - Weight 68.9 kg (152 lb) 06/25/2025 2:23 PM EDT Height 167.6 cm (5' 6 ) 06/25/2025 2:23 PM EDT Body Mass Index 24.53 06/25/2025 2:23 PM EDT Plan of Treatment Upcoming Encounters Date Type Department Care Team (Late st Contact Info) Description 07/27/2025 12:30 PM EST [facility] [place] [address] [facility] [address] [place] [address] Negra Marcelino NP 19 [facility] [address] [place] [address] 08/28/2025 11:30 AM EST Appointment [facility] [address] [place] [id number] 09/10/2025 9:00 AM EST [facility] [place] [address] [facility] [address] [place] [id number] Cordell Turpin MD 19 [facility] [address] [place] [address] Health Maintenance Due Date Last Done Comments Hepatitis B Vaccines (1 of 3 - 19+ 3-dose series) 1993 Pneumococcal Vaccine: 50+ Years (1 of 2 - PCV) 1993 HIV Screening 08/18/2022 Hepatitis C Screening 08/18/2022 Lung Cancer Screening (Low Dose CT) 08/18/2022 Medicare Annual Wellness Visit 08/18/2022 Social Influencers of Health Screening 08/18/2022 Zoster Vaccines (1 of 2) 02/05/2024 Depression Screening 09/20/2024 COVID-19 Vaccine ( season) 2025 01/28/2021, 01/07/2021 Influenza Vaccine (#1) 2025 Hypertension/CHF/CAD Annual BMP Blood Test 03/23/2026 03/23/2025, 04/28/2024, 04/28/2024, Additional history exists Breast Cancer Screening 01/11/2027 01/11/2025 Cholesterol Screening (Lipid Panel) 01/15/2027 01/15/2022, 01/15/2022, 08/20/2016 Cervical Cancer Screening: HPV 05/31/2028 05/31/2023 DTaP,Tdap,and Td Vaccines (3 - Td or Tdap) 11/17/2029 11/18/2019, 06/26/2015 Colorectal Cancer Screening: Colonoscopy 05/28/2031 05/28/2021 RSV Immunization Adult Patients (1 - 1-dose 75+ series) 2049 HIB Vaccines Aged Out No longer eligi ble based on patient's age to complete this topic HPV Vaccines Aged Out No longer eligi ble based on patient's age to complete this topic Hepatitis A Vaccines Aged Out No long er eligible based on patient's age to complete this topic IPV Vaccines Aged Out No longer eligi ble based on patient's age to complete this topic MMR Vaccines Aged Out No longer eligi ble based on patient's age to complete this topic Meningococcal ACWY Vaccine Aged Out N o longer eligible based on patient's age to complete this topic Meningococcal B Vaccine Aged Out No l onger eligible based on patient's age to complete this topic RSV Immunization Patients Under 20 months Aged Out No longer eligible based on patient's age to complete this topic Varicella Vaccines Aged Out No longer eligible based on patient's age to complete this topic Procedures Procedure Name Priority Date/Time Associated Diagnosis Comments BASIC METABOLIC PANEL STAT 03/23/2025 8:12 AM EDT HPV Routine 05/31/2023 LIPID PANEL Routine 01/15/2022 COLONOSCOPY Routine 05/28/2021 from Last 3 Months or Most Recently Relevant to Health Maintenance Results * Basic Metabolic Panel (BMP) (03/23/2025 8:12 AM EDT) Sodium 137 135 - 145 mmol/L LAB CHEMISTRY METHOD 03/23/2025 8:40 AM EDT [facility] Potassium 3.5 3.5 - 5.1 mmol/L LAB CHEMISTRY METHOD 03/23/2025 8:40 AM EDT [facility] Chloride 105 98 - 107 mmol/L LAB CHE[facility]STR[facility] CO2 26 24 - 32 mmol/L LAB CHEMISTRY METHOD [facility]/23[facility]2025 [facility] Anion Gap 6 5 - 14 LAB CHEMISTRY METHOD 03/23[facility]2025 [facility] Glucose 103 70 - 199 mg/dL LAB CHEMISTRY METHOD 03/23[facility]2025 [facility] BUN 12 7 - 17 mg/dL LAB CHEMISTRY METHOD 03/23/2025 8:40 AM [facility] Creatinine 0.80 0.50 - 1.00 mg/dL LAB CHEMISTRY METHOD 03/23[facility]2025 8[facility] eGFR 89 >=60 mL/min/1. 73m2 LAB CHEMISTRY METHOD 03/23/2025 8:[facility] Comment:Calculation based on the Chronic Kidney Disease Epidemiology Collaboration (CKD-EPI) equation refit without adjustment for race. BUN/Creatinine Ratio 15.0 12.0 - 20.0 LAB CHEMISTRY METHOD 03/23/2025 8[facility] Calcium 8.8 8.4 - 10.2 mg/dL LAB CHEMISTRY METHOD 03/23/2025 8[facility] Blood Venous blood specimen / Unknown Venipuncture / Unknown 03/23/2025 8:12 AM EDT 03/23/2025 8:12 AM EDT us José Miguel Coe DO LAB BLOOD ORDERABLES Final Re sult [facility] [address] [place] [address], * Cervical Cancer Screening: HPV (05/31/2023) Pathologist [facility] Cervical Cancer Screening: HPV no interpretation , abstracted Historical Provider HEALTH MAINTENANCE Final Result * Lipid panel (01/15/2022) Pathologist [facility] Triglycerides 45 <=150 mg/dL Cholesterol 145 0 - 200 mg/dL HDL 62 35 - 88 mg/dL LDL Cholesterol 74 50 - 130 mg/dL Blood Venous blood specimen / Unknown Historical Provider LAB BLOOD ORDERABLES Lyubov l Result * Colonoscopy (05/28/2021) Pathologist [facility] Colonoscopy no interpretation , abstracted Anatomical Region Laterality Modality Other Historical Provider HEALTH MAINTENANCE Final Result from Last 3 Months or Most Recently Relevant to Health Maintenance Insurance [place]ICA[place] - [place] [employer] MEDICARE Care Teams Electric Shaver Mechanic Relationship Specialty Start Date End Date Shay Muse MD [address] [place] [address] PCP - General Internal Medicine 05/01/21
--- OUTSIDE RECORDS SUMMARY | 2025-07-15 23:41 | XMS_ITS ---
Author Organization [facility] Care Team Providers Care Veterinary Laboratory Technician Name Role Phone CARRI ARRIAZA Unavailable Unavailable Allergies and adverse reactions No Known Allergies Care Team Name Role Address Phone Organization Dates CARRI ARRIAZA [address], [facility], [facility] (Office): : [facility] 07/01/2022 - 07/04/2022 Immunizations Immunization Status Vaccine Details Vaccine Code CodeSystem Date Notes SARS-COV-2 (COVID-19) completed SARS-COV-2 (COVID-19) vaccine, mRNA, spike protein, LNP, preservative free, 30 mcg/0.3mL dose Step 2 of Multi-step with next step required 208 CVX created date: 07/01/2022 administer ed date: 01/28/2021 Pfizer SARS-COV-2 (COVID-19) completed SARS-COV-2 (COVID-19) vaccine, mRNA, spike protein, LNP, preservative free, 30 mcg/0.3mL dose, josefina-sucrose formulation Mfg: Pfizer Step 2 of Multi-step with next step required 217 CVX created date: 07/01/2022 administer ed date: 01/28/2021 Had in community SARS-COV-2 (COVID-19) completed SARS-COV-2 (COVID-19) vaccine, mRNA, spike protein, LNP, preservative free, 30 mcg/0.3mL dose g: Pfizer Step 1 of Multi-step with next step required 208 CVX created date: 07/01/2022 administer ed date: 01/07/2021 Had in community SARS-COV-2 (COVID-19) completed SARS-COV-2 (COVID-19) vaccine, mRNA, spike protein, LNP, preservative free, 30 mcg/0.3mL dose, josefina-sucrose formulation Step 1 of Multi-step with next step required 217 CVX created date: 07/01/2022 administer ed date: 01/07/2021 [facility] Mental Status Section Date Assessment Total Score Description 07/04/2022 BIMS 14 cognitively int act CAM 0 No delirium ind icated PHQ-9 02 minimal depress ion 07/04/2022 BIMS 14 cognitively int act CAM 0 No delirium ind icated PHQ-9 02 minimal depress ion Insurance Providers Problems Problem # Description Date of onset Resolved Date Code CodeSystem Concern Status 1 ANEMIA, UNSPECIFIED 07/01/[address] active 2 GASTRO-ESOPHAGEAL REFLUX DISEASE WITHOUT ESOPHAGITIS 07/01/[address] active 3 BIPOLAR DISORDER, UNSPECIFIED 06/30/[address] active 4 DEPRESSION, UNSPECIFIED 06/30/[address] active 5 OTHER SPECIFIED POSTPROCEDURAL STATES 06/30/[address] active 6 RESTLESS LEGS SYNDROME 06/30/[address] active Reason for Referral No Reasons for Referral Entered Social History Social History Observation Description Start Date End Date Code Code System Current Smoking Status Tobacco smoking consumption unknown 401096992 SNOMED CT Sex Assigned At Female 1975 17391-7 [facility] Gender Identity Sexual Orientation Vital Signs Code Code System Vitals Name Values and Units Timing Information 14237-9 INC Pain Level Value=0.0 07/04/2022 9279-1 [facility] Respiratory Rate Value=18.0 Units=/m in 07/04/2022 8462-4 [facility] Blood Pressure-Diastolic Value=68 Un its=mmHg 07/04/2022 8480-6 [facility] Blood Pressure-Systolic Wrlzl=383 Un its=mmHg 07/04/2022 8310-5 [facility] Body Temperature Value=97.5 Units= F 07/04/2022 8867-4 [facility] Heart rate Value=68.0 Units=/min 82627-5 [facility] O2 % BldC Oximetry Value=99.0 Units= % 07/03/2022 8302-2 [facility] Height Value=5.5 Units=Inches 07/01/2022 67495-3 [facility] Weight Wdlmv=148.8 Units=Lbs 08/2022
--- OUTSIDE RECORDS SUMMARY | 2025-07-15 23:41 | XMS_ITS ---
Author Name [facility] Organization Unknown Results Test Name/Text Value Interpretation Date Range Source Bacteria Ur Cult SEE NOTE Abnormal 04/05/2025 QU EST Cannabinoids Ur Ql Scn Negative 03/23/2025 - [facility] Cocaine Ur Ql Scn Negative 03/23/2025 - C T[facility] fentaNYL Ur Ql Positive Abnormal 03/23/2025 - [facility] Amphet Ur Ql Scn Negative 03/23/2025 - CT [facility] Benzodiaz Ur Ql Scn Negative 03/23/2025 - [facility] PCP Ur Ql Scn Negative 03/23/2025 - [facility] Opiates Ur Ql Scn Negative 03/23/2025 - C [facility] Barbiturates Ur Ql Scn Negative 03/23/2025 - [facility] oxyCODONE Ur Ql Scn Negative 03/23/2025 - [facility] Ethanol SerPl-mCnc <10.0 mg/dL 03/23/2025 0 - 10 [facility] eGFRcr SerPlBld CKD-EPI 2020 89.0 mL/min/1.73m2 03/23/2025 - [facility] Potassium SerPl-sCnc 3.5 mmol/L 03/23/2025 3.5 - 5 .1 [facility] Chloride SerPl-sCnc 105.0 mmol/L 03/23/2025 98 - 1 07 [facility] BUN SerPl-mCnc 12.0 mg/dL 03/23/2025 7 - 17 [facility]_ [facility] Glucose SerPl-mCnc 103.0 mg/dL 03/23/2025 70 - 199 [facility] BUN/Creat SerPl 15.0 03/23/2025 12 - 20 [facility]_ [facility] Creat SerPl-mCnc 0.8 mg/dL 03/23/2025 0.5 - 1 CT _[facility] Sodium SerPl-sCnc 137.0 mmol/L 03/23/2025 135 - 14 5 [facility] Calcium SerPl-mCnc 8.8 mg/dL 03/23/2025 8.4 - 10.2 [facility] Anion Gap SerPl Calc-sCnc 6.0 03/23/2025 5 - 14 [facility] CO2 SerPl-sCnc 26.0 mmol/L 03/23/2025 24 - 32 CT _[facility] RBC Auto 97.4 FL 03/23/2025 78 - 100 [facility] PMV Bld Auto 9.5 FL 03/23/2025 7.4 - 11.4 [facility] RDW RBC Auto 13.1 % 03/23/2025 12.1 - 16.2 CT_T [facility] Monocytes NFr Bld Auto 7.1 % 03/23/2025 2 - 12 [facility] Platelet # Bld Auto 214.0 K/mcL 03/23/2025 150 - 4 50 [facility] Monocytes # Bld Auto 0.57 K/mcL 03/23/2025 0 - 0.8 [facility] Neutrophils NFr Bld Auto 76.3 % Above high normal 03/23/2025 44 - 74 [facility] Lymphocytes NFr Bld Auto 14.8 % Below low normal 03/23/2025 20 - 48 [facility] Neutrophils # Bld Auto 6.13 K/mcL 03/23/2025 1.8 - 7.8 CT_[facility] MCHC RBC Auto-EntMCnc 34.5 g/dL 03/23/2025 32 - 36 [facility] Eosinophil NFr Bld Auto 1.2 % 03/23/2025 0 - 6 [facility] Basophils # Bld Auto <0.03 K/mcL 03/23/2025 0 - 0. 2 [facility] Lymphocytes # Bld Auto 1.19 K/mcL 03/23/2025 1 - 3.2 [facility] RBC # Bld Auto 4.23 M/mcL 03/23/2025 4.2 - 5.4 CT_ [facility] WBC # Bld Auto 8.0 K/mcL 03/23/2025 4 - 10.5 [facility] Eosinophil # Bld Auto 0.1 K/mcL 03/23/2025 0 - 0.5 [facility] Basophils NFr Bld Auto 0.2 % 03/23/2025 0 - 2 [facility] Hct VFr Bld Auto 41.2 % 03/23/2025 37 - 47 CT _[facility] MCH RBC Qn Auto 33.6 pcg Above high normal 03/23/2025 25 - 33 [facility] Hgb Bld-mCnc 14.2 g/dL 03/23/2025 12.5 - 16 [facility] Bacteria Ur Cult SEE NOTE Abnormal 03/25/2025 QU EST HBV surface Ab SerPl IA-aCnc <5 Below low normal 12/19/2024 - [facility] HCV Ab SerPl Ql IA NON-REACTIVE Normal 12/19/2024 - [facility] HIV 1+2 Ab+HIV1 p24 Ag SerPl Ql IA NON-REACTIVE Normal 12/19/2024 - [facility] T pallidum Ab Ser Ql IA NEGATIVE Normal 12/19/2024 - [facility] BV bacteria rRNA Vag Ql MOISÉS+probe POSITIVE Abnormal 12/14/2024 - [facility] Stefania rRNA Vag Ql Probe NOT DETECTED Normal 12/14/2024 - C trach rRNA Spec Ql MOISÉS+probe NOT DETECTED Normal 12/14/2024 - C glabrata RNA Vag Ql MOISÉS+probe NOT DETECTED Normal 12/14/2024 - [facility] N gonorrhoea rRNA Spec Ql MOISÉS+probe NOT DETECTED Normal 12/14/2024 - [facility] vaginalis rRNA Spec Ql MOISÉS+probe NOT DETECTED Normal 12/14/2024 - [facility] Prot SerPl-mCnc 7.0 g/dL Normal 11/26/2024 6.3 - 8.[address] CO2 SerPl-sCnc 24.0 mmol/L Normal 11/26/2024 22 - 33 [facility] BUN/Creat SerPl 21.0 Ratio Normal 11/26/2024 10 - 25 HH CCT Creat SerPl-mCnc 0.7 mg/dL Normal 11/26/2024 0.4 - 1.1 HH [facility] Chloride SerPl-sCnc 104.0 mmol/L Normal 11/26/2024 98 - 1 07 [facility] Glucose SerPl-mCnc 97.0 mg/dL Normal 11/26/2024 65 - 99 [facility] BUN SerPl-mCnc 15.0 mg/dL Normal 11/26/2024 8 - [address] Bilirub SerPl-mCnc 0.3 mg/dL Normal 11/26/2024 0.2 - 1 [facility] Sodium SerPl-sCnc 139.0 mmol/L Normal 11/26/2024 136 - 14 5 [facility] Albumin SerPl-mCnc 4.3 g/dL Normal 11/26/2024 3.5 - 5 H[facility] AST SerPl-cCnc 15.0 U/L Normal 11/26/2024 10 - 50 [facility] T Globulin Ser Calc-mCnc 2.7 g/dL Normal 11/26/2024 1.5 - 3.9 [facility] Calcium SerPl-mCnc 9.3 mg/dL Normal 11/26/2024 8.7 - 10.5 [facility] Albumin/Glob SerPl 1.6 Ratio Normal 11/26/2024 1 - 3 [facility] Anion Gap Bld-sCnc 11.0 Normal 11/26/2024 7 - 17 [facility]CT GFR/BSA.pred SerPlBld NEP-CLI-[id number] >90.0 Normal 11/26/2024 59 - H[facility]CT Potassium SerPl-sCnc 3.9 mmol/L Normal 11/26/2024 3.4 - 5 .3 [facility] ALP SerPl-cCnc 80.0 U/L Normal 11/26/2024 32 - 122 [facility] T ALT SerPl-cCnc 15.0 U/L Normal 11/26/2024 10 - 50 [facility] T pro BNP, N-terminal <36.0 pg/mL Normal 11/26/2024 - 125 [facility]CT Magnesium SerPl-mCnc 2.1 mg/dL Normal 11/26/2024 1.6 - 2. 7 [facility]CT Delta NO PREVIOUS RESULT Normal 11/26/2024 - 3 [facility]CT Troponin T SerPl-mCnc <6.0 ng/L Normal 11/26/2024 - 15 [facility] Hgb Bld-mCnc 15.1 g/dL Normal 11/26/2024 11.7 - 15.7 [facility] T Eosinophil/leuk NFr Bld Auto 1.7 % Normal 11/26/2024 H[facility]CT Monocytes/leuk NFr Bld Auto 6.9 % Normal 11/26/2024 H[facility]CT WBC num Bld Auto 5.9 Thou/uL Normal 11/26/2024 4 - 11 [facility] RDW RBC Auto-Rto 12.2 % Normal 11/26/2024 11.5 - 14.5 [facility] Neutrophils/leuk NFr Bld Auto 63.4 % Normal 11/26/2024 [facility]CT RBC num Bld Auto 4.65 Mil/uL Normal 11/26/2024 4 - 5.4 [facility]CT Lymphocytes/leuk NFr Bld Auto 27.3 % Normal 11/26/2024 H[facility]CT Platelet num Bld Auto 245.0 Thou/uL Normal 11/26/2024 150 - 450 H[facility]CT Hct VFr Bld Auto 44.6 % Normal 11/26/2024 35 - 47 HH CCT Neutrophils num Bld Auto 3.77 Thou/uL Normal 11/26/2024 2 - 7.5 H[facility]CT MCHC RBC Auto-mCnc 33.9 g/dL Normal 11/26/2024 30 - 36 H[facility]CT MCV RBC Auto 96.0 fL Normal 11/26/2024 80 - 100 H[facility]CT Lymphocytes num Bld Auto 1.62 Thou/uL Normal 11/26/2024 1.5 - 4.5 H[facility]CT PMV Bld Auto 10.1 fL Normal 11/26/2024 7.5 - 12.5 H[facility]CT Imm Granulocytes/leuk NFr Bld Auto 0.2 % Normal 11/26/2024 H[facility]CT Basophils/leuk NFr Bld Auto 0.5 % Normal 11/26/2024 H[facility]CT MCH RBC Qn Auto 32.5 pg Above high normal 11/26/2024 27 - 31 H[facility]CT Basophils num Bld Auto 0.03 Thou/uL Normal 11/26/2024 0 - 0.2 H[facility]CT Monocytes num Bld Auto 0.41 Thou/uL Normal 11/26/2024 0.2 - 1.5 H[facility]CT Eosinophil num Bld Auto 0.1 Thou/uL Normal 11/26/2024 0 - 0.7 HHCCT Imm Granulocytes num Bld Auto 0.01 Thou/uL Normal 11/26/2024 0 - 0.1 HHCCT POC Glucose 120.0 mg/dL Above high normal 11/26/2024 65 - 99 H[facility]CT Delta NO CHANGE Normal 04/28/2024 - 3 H[facility]CT Troponin T SerPl-mCnc <6.0 ng/L Normal 04/28/2024 - 15 H[facility]CT BUN SerPl-mCnc 12.0 mg/dL Normal 04/28/2024 8 - [address] Calcium SerPl-mCnc 9.2 mg/dL Normal 04/28/2024 8.7 - 10.5 H[facility]CT Chloride SerPl-sCnc 102.0 mmol/L Normal 04/28/2024 98 - 1 07 H[facility]CT BUN/Creat SerPl 17.0 Ratio Normal 04/28/2024 10 - 25 HH CCT Creat SerPl-mCnc 0.7 mg/dL Normal 04/28/2024 0.4 - 1.1 HH CCT Potassium SerPl-sCnc 3.9 mmol/L Normal 04/28/2024 3.4 - 5 .3 H[facility]CT Glucose SerPl-mCnc 94.0 mg/dL Normal 04/28/2024 65 - 99 HHCCT CO2 SerPl-sCnc 24.0 mmol/L Normal 04/28/2024 22 - 33 HH CCT Anion Gap Bld-sCnc 11.0 Normal 04/28/2024 7 - 17 H[facility]CT Sodium SerPl-sCnc 137.0 mmol/L Normal 04/28/2024 136 - 14 5 H[facility]CT GFR/BSA.pred SerPlBld LEB-DZJ-DaEFig >90.0 Normal 04/28/2024 59 - HHCCT Troponin T SerPl-mCnc <6.0 ng/L Normal 04/28/2024 - 15 H[facility]CT Delta NO PREVIOUS RESULT Normal 04/28/2024 - 3 H[facility]CT WBC num Bld Auto 6.7 Thou/uL Normal 04/28/2024 4 - 11 HHCCT Eosinophil num Bld Auto 0.04 Thou/uL Normal 04/28/2024 0 - 0.7 HHCCT Hct VFr Bld Auto 40.7 % Normal 04/28/2024 35 - 47 HH CCT Monocytes num Bld Auto 0.4 Thou/uL Normal 04/28/2024 0.2 - 1.5 HHCCT Neutrophils num Bld Auto 5.0 Thou/uL Normal 04/28/2024 2 - 7.5 HHCCT Imm Granulocytes/leuk NFr Bld Auto 0.1 % Normal 04/28/2024 HHCCT Lymphocytes/leuk NFr Bld Auto 18.6 % Normal 04/28/2024 H[facility]CT Neutrophils/leuk NFr Bld Auto 74.4 % Normal 04/28/2024 H[facility]CT Platelet num Bld Auto 249.0 Thou/uL Normal 04/28/2024 150 - 450 H[facility]CT Basophils num Bld Auto 0.02 Thou/uL Normal 04/28/2024 0 - 0.2 HHCCT RBC num Bld Auto 4.37 Mil/uL Normal 04/28/2024 4 - 5.4 HHCCT Hgb Bld-mCnc 13.4 g/dL Normal 04/28/2024 11.7 - 15.7 HH[facility] T MCH RBC Qn Auto 30.7 pg Normal 04/28/2024 27 - [address] Lymphocytes num Bld Auto 1.25 Thou/uL Below low normal 04/28/2024 1.5 - 4.5 HHCCT MCV RBC Auto 93.0 fL Normal 04/28/2024 80 - 100 H[facility]CT PMV Bld Auto 10.1 fL Normal 04/28/2024 7.5 - 12.5 H[facility]CT Eosinophil/leuk NFr Bld Auto 0.6 % Normal 04/28/2024 HHCCT MCHC RBC Auto-mCnc 32.9 g/dL Normal 04/28/2024 30 - 36 HHCCT Imm Granulocytes num Bld Auto 0.01 Thou/uL Normal 04/28/2024 0 - 0.1 H[facility]CT Monocytes/leuk NFr Bld Auto 6.0 % Normal 04/28/2024 HHCCT RDW RBC Auto-Rto 13.9 % Normal 04/28/2024 11.5 - 14.5 HHCCT Basophils/leuk NFr Bld Auto 0.3 % Normal 04/28/2024 HHCCT D DIMER DDU PPP EIA MCNC 189.0 ng/mL DDU Normal 04/28/2024 - 231 [facility] LYMPHOCYTES NFR BLD AUTO 24.0 % Normal 04/28/2024 20 - 48 [facility] WBC NO. BLD AUTO 5.4 K/uL Normal 04/28/2024 4 - 10.5 CT [facility] IMMATURE GRANULOCYTE, PERCENT 0.2 % Normal 04/28/2024 0 - [facility] RBC QN AUTO 30.8 pg Normal 04/28/2024 25 - 33 [facility] RDW RBC AUTO RTO 13.9 % Normal 04/28/2024 12.1 - 16.2 REPLACED BY [facility] LYMPHOCYTES NO. BLD AUTO 1.3 K/uL Normal 04/28/2024 1 - 3.2 [facility] NEUTROPHILS NO. BLD AUTO 3.7 K/uL Normal 04/28/2024 1.8 - 7.8 [facility] IMMATURE GRANULOCYTE, ABSOLUTE 0.01 k/uL Normal 04/28/2024 - 0.1 REPLACED BY [facility] RBC NO. BLD AUTO 4.41 M/uL Normal 04/28/2024 4.2 - 5.4 CT [facility] PMV BLD AUTO 10.2 fL Normal 04/28/2024 7.4 - [facility] BAS[facility] NFR BLD AUTO 0.4 % Normal 04/28/2024 0 - 2 REPLACED BY [facility] PLATELET NO. BLD AUTO 232.0 K/uL Normal 04/28/2024 150 - 450 [facility] EOSINOPHIL NFR BLD AUTO 1.8 % Normal 04/28/2024 0 - 6 [facility] EOSINOPHIL NO. BLD AUTO 0.1 K/uL Normal 04/28/2024 0 - 0.5 [facility] HCT VFR BLD AUTO 40.5 % Normal 04/28/2024 37 - 47 CT [facility] NUCLEATED RBC 0.0 % Normal 04/28/2024 0 - 1 [facility] BASOPHILS IN BLOOD BY AUTOMATED COUNT 0.0 K/uL Normal 04/28/2024 0 - 0.2 [facility] MCV RBC AUTO 91.8 fL Normal 04/28/2024 78 - 100 [facility] HGB BLD MCNC 13.6 g/dL Normal 04/28/2024 12.5 - 16 [facility] MCHC RBC AUTO MCNC 33.6 g/dL Normal 04/28/2024 32 - 36 [facility] MONOCYTES NFR BLD AUTO 5.9 % Normal 04/28/2024 2 - 12 [facility] MONOCYTES NO. BLD AUTO 0.3 K/uL Normal 04/28/2024 0 - 0.8 REPLACED BY [facility] NEUTROPHILS NFR BLD AUTO 67.7 % Normal 04/28/2024 44 - 74 [facility] PT TIME PPP 11.5 sec Normal 04/28/2024 10.5 - 13.3 [facility] INR PPP 0.9 Normal 04/28/2024 0.8 - 1.1 [facility] ANION GAP SERPL SCNC 4.0 mmol/L Below low normal 04/28/2024 5 - 14 [facility] POTASSIUM SERPL SCNC 4.0 mmol/L Normal 04/28/2024 3.5 - 5 .1 [facility] CREAT SERPL MCNC 0.7 mg/dL Normal 04/28/2024 0.5 - 1 CT [facility] GLUCOSE SERPL MCNC 112.0 mg/dL Normal 04/28/2024 70 - 199 [facility] HCO3 SER SCNC 28.0 mmol/L Normal 04/28/2024 24 - 32 [facility] SODIUM SERPL SCNC 135.0 mmol/L Normal 04/28/2024 135 - 14 5 [facility] CHLORIDE SERPL SCNC 103.0 mmol/L Normal 04/28/2024 98 - 1 07 REPLACED BY [facility] Glomerular filtration rate/1.73 sq M. predicted 105.0 Normal 04/28/2024 60 - [facility] CALCIUM SERPL MCNC 9.1 mg/dL Normal 04/28/2024 8.4 - 10.2 [facility] BUN SERPL MCNC 15.0 mg/dL Normal 04/28/2024 7 - 17 [facility] COLOR OF URINE Yellow Normal 01/18/2024 - CT[facility] HS BACTERIA Few Abnormal 01/18/2024 - [facility] SYSMEX CASTS 0-2 Normal 01/18/2024 - [facility] HEMOGLOBIN, URINE Negative Normal 01/18/2024 - [facility] PH OF URINE 8.0 Normal 01/18/2024 5 - 8 [facility] RBC 0-2 Normal 01/18/2024 0 - 2 [facility] NITRITE Negative Normal 01/18/2024 - [facility] EPITHELIAL CELLS Few Abnormal 01/18/2024 - [facility] GLUCOSE QUAL Negative Normal 01/18/2024 - [facility] KETONES URINE Negative Normal 01/18/2024 - [facility] WBC 0-5 Normal 01/18/2024 0 - 5 [facility] BILIRUBIN, URINE Negative Normal 01/18/2024 - [facility] SPECIFIC GRAVITY <=1.005 Below low normal 01/18/2024 - [facility] LEUKOCYTE ESTERASE Moderate Abnormal 01/18/2024 - [facility] PROTEIN QUAL Negative Normal 01/18/2024 - [facility] CLARITY OF URINE Clear Normal 01/18/2024 - [facility] UROBILINOGEN, URINE 1.0 EU/dL Normal 01/18/2024 0.2 - 1 [facility] HOLD SPECIMEN LAV Normal 01/18/2024 [facility] BICARBONATE 27.0 mmol/L Normal 01/18/2024 23 - 32 [facility] GLOMERULAR FILTRATION RATE ML/MIN/1.73 SQ M.PREDICTED 106.0 mL/min/1.73m*2 Normal 01/18/2024 60 - [facility] CALCIUM, TOTAL 8.7 mg/dL Normal 01/18/2024 8.4 - 10.2 [facility] GLUCOSE 102.0 mg/dL Normal 01/18/2024 70 - 200 [facility] POTASSIUM 4.1 mmol/L Normal 01/18/2024 3.6 - 5.1 [facility] UREA NITROGEN 10.0 mg/dL Normal 01/18/2024 8 - 24 [facility] CREATININE 0.7 mg/dL Normal 01/18/2024 0.6 - 1.2 [facility] ANION GAP 7.0 mmol/L Normal 01/18/2024 3 - 11 [facility] CHLORIDE 106.0 mmol/L Normal 01/18/2024 100 - 111 [facility] SODIUM 140.0 mmol/L Normal 01/18/2024 137 - 144 [facility] HOLD SPECIMEN Normal 01/18/2024 [facility] BASOPHILS % 0.3 % Normal 01/18/2024 0 - [address] 0.1 10*3/uL Normal 01/18/2024 0 - 0.3 [facility] NEUTROPHIL % 77.0 % Above high normal 01/18/2024 40 - [address] [facility] 0.0 10*3/uL Normal 01/18/2024 0 - 0. 2 [facility] HEMOGLOBIN 9.0 g/dL Below low normal 01/18/2024 12 - 16 [facility] IMMATURE GRANULOCYTE % 0.3 % Normal 01/18/2024 0 - 0.6 [facility] LYMPHOCYTE % 14.6 % Below low normal 01/18/2024 20 - 50 [facility] MCV 99.3 fL Normal 01/18/2024 80 - 100 [facility] MONOCYTE % 6.0 % Normal 01/18/2024 4 - 12 [facility] RED CELL COUNT 2.81 10*6/ L Below low normal 01/18/2024 3.8 - 5.2 [facility] HEMATOCRIT 27.9 % Below low normal 01/18/2024 35 - [address] [facility] [address] 5.3 10*3/uL Normal 01/18/2024 1.4 - 6.3 [facility] EOSINOPHIL % 1.8 % Normal 01/18/2024 0 - 6 [facility] RBC DISTRIBUTION WIDTH 12.2 % Normal 01/18/2024 11.6 - 14.8 [facility] MCH 32.0 pg Normal 01/18/2024 26 - [address] [facility] [address] 0.4 10*3/uL Normal 01/18/2024 0.2 - 0.[address] 1.0 10*3/uL Normal 01/18/2024 0.7 - 4.5 [facility] MCHC 32.3 g/dL Normal 01/18/2024 32 - 36 [facility] PLATELET COUNT 285.0 10*3/uL Normal 01/18/2024 150 - 440 [facility] AUTO NRBC % 0.0 % Normal 01/18/2024 0 - 0 [facility] WHITE CELL COUNT 6.8 10*3/uL Normal 01/18/2024 3.6 - 11 [facility] HEMOGLOBIN 10.4 g/dL Below low normal 01/11/2024 12 - 16 [facility] HEMATOCRIT 31.4 % Below low normal 01/11/2024 35 - 47 [facility] ACTIVATED PARTIAL THROMBOPLASTIN TIME IN PPP BY COAGULATION ASSAY 30.0 seconds Normal 01/10/2024 25.1 - 36.5 [facility] INR 1.0 ratio Normal 01/10/2024 0.9 - 1.1 [facility] PROTHROMBIN TIME (PT) 11.7 seconds Normal 01/10/2024 10.4 - 13 [facility] CREATININE 0.7 mg/dL Normal 01/10/2024 0.6 - 1.2 [facility] CHLORIDE 113.0 mmol/L Above high normal 01/10/2024 100 - 11 1 [facility] BICARBONATE 23.0 mmol/L Normal 01/10/2024 23 - 32 [facility] ANION GAP 4.0 mmol/L Normal 01/10/2024 3 - 11 [facility] GLUCOSE 116.0 mg/dL Normal 01/10/2024 70 - 200 [facility] UREA NITROGEN 13.0 mg/dL Normal 01/10/2024 8 - 24 [facility] HS SODIUM 140.0 mmol/L Normal 01/10/2024 137 - 144 [facility] GLOMERULAR FILTRATION RATE ML/MIN/1.73 SQ M.PREDICTED 106.0 mL/min/1.73m*2 Normal 01/10/2024 60 - [facility] CALCIUM, TOTAL 8.8 mg/dL Normal 01/10/2024 8.4 - 10.2 [facility] POTASSIUM 4.2 mmol/L Normal 01/10/2024 3.6 - 5.1 [facility] MCV 97.3 fL Normal 01/10/2024 80 - 100 [facility] RED CELL COUNT 3.76 10*6/ L Below low normal 01/10/2024 3.8 - 5.2 [facility] AUTO NRBC % 0.0 % Normal 01/10/2024 0 - 0 [facility] RBC DISTRIBUTION WIDTH 12.8 % Normal 01/10/2024 11.6 - 14.8 [facility] HEMATOCRIT 36.6 % Normal 01/10/2024 35 - 47 [facility] MCHC 33.6 g/dL Normal 01/10/2024 32 - 36 [facility] PLATELET COUNT 183.0 10*3/uL Normal 01/10/2024 150 - 440 [facility] HEMOGLOBIN 12.3 g/dL Normal 01/10/2024 12 - 16 [facility] MCH 32.7 pg Normal 01/10/2024 26 - 34 [facility] WHITE CELL COUNT 11.3 10*3/uL Above high normal 01/10/2024 3 .6 - 11 [facility] ANTIBODY SCREEN NEG Normal 01/03/2024 [facility] RH TYPE IN BLOOD POS Normal 01/03/2024 [facility] ABO GROUP (TYPE) IN BLOOD A Normal 01/03/2024 [facility] VITAMIN D, 25H 32.0 ng/mL Normal 01/03/2024 - [facility] History of Medication Use Medication Directions Dispensed Refills Start Date End Date Status Caplyta 10.5 MG Cap take 1 capsule by mouth in the evening 07/04/20 25 active hydrOXYzine HCl (ATARAX) 25 MG tablet TAKE 1-2 TABLET THREE TIMES A DAY NEEDED FOR ANXIETY 06/25/20 25 active lamoTRIgine (LaMICtal) 150 mg tablet Take 1 tablet (150 mg total) by mouth 2 (two) times a day. 06/01/20 25 active sodium chloride 0.9% (NS) infusion 75 mL/hr, Intravenous, Continuous, Starting on Wed05/09/25 at 1300, Pre-Procedure (GI) 05/09/20 25 active phenazopyridine (PYRIDIUM) 200 MG tablet Take 1 tablet (200 mg total) by mouth 3 (three) times a day as needed for bladder spasms. 04/03/20 25 active Rexulti 1 MG tablet Take 1 mg by mouth daily. 04/02/20 25 active Tenapanor HCl (Ibsrela) 50 MG tablet Take 1 tablet (50 mg total) by mouth 2 (two) times a day with breakfast and dinner. 03/28/20 25 active nitrofurantoin monohydrate (MACROBID) 100 MG capsule Take 1 capsule (100 mg total) by mouth 2 (two) times a day with meals. 03/22/20 25 active traZODone (DESYREL) 100 MG tablet Take by mouth. 03/19/20 25 active lidocaine (XYLOCAINE) 2 % injection 10 mL 10 mL, Subcutaneous, Once, On Lady 01/11/25 at 1030, For 1 dose 01/12/20 25 025 completed prucalopride (MOTEGRITY) 2 mg tablet tablet Take 2 mg by mouth in the morning. 01/09/20 25 active prucalopride succinate (MOTEGRITY) 2 MG tablet Take 1 tablet (2 mg total) by mouth daily. 01/09/20 25 active plecanatide (TRULANCE) 3 MG tablet Take 1 tablet (3 mg total) by mouth daily. 12/19/19 25 active phentermine (ADIPEX-P) 37.5 mg tablet Take 37.5 mg by mouth. 12/14/19 active phentermine (ADIPEX-P) 37.5 MG tablet Take 37.5 mg by mouth. 12/14/19 active LaMICtal 150 MG tablet active LaMICtal 150 MG tablet Take 150 mg by mo ut 2 (two) times a day. 11/29/19 active ipratropium (ATROVENT) 0.06 % nasal spray 2 sprays. 11/14/19 active albuterol (PROVENTIL HFA; VENTOLIN HFA) 108 (90 Base) MCG/ACT inhaler Inhale 2 puffs every 4 (four) hours as needed for wheezing or shortness of breath. 10/09/19 active doxycycline (VIBRAMYCIN) 100 MG capsule Take 1 capsule (100 mg total) by mouth 2 (two) times a day. 10/09/19 active predniSONE (DELTASONE) 20 MG tablet Take 2 tablets (40 mg total) by mouth daily. 10/09/19 active trazodone 100 mg/5 mL oral liquid 10/05/19 025 active desvenlafaxine succinate ER (PRISTIQ) 100 mg 24 hr tablet Take 100 mg by mouth in the morning. 08/30/20 active iopamidol (ISOVUE-370) 76 % injection 100 mL 100 mL, Intravenous, IMG once as needed, contrast, Starting on Lady 06/29/24 at 0818, For 1 dose, Radiology ContrastLot #: [id number] exp 03/1606/29/20 completed nitroglycerin (NITROSTAT) SL tablet 0.4 mg 0.4 mg, Sublingual, Once, On Lady 06/29/24 at 0600, For 1 doseMay give prior to CTA if SBP greater than 100. If male pt call IR provider prior to administering 06/29/20 024 completed pramipexole (miraPEx) 1.5 MG tablet TAKE 6 TABLET BY MOUTH AT BEDTIME 05/06/20 active Rexulti 3 MG tablet Take 3 mg by mouth. 05/02/20 active aspirin chewable tablet 324 mg 324 mg, Oral, Once, On Wed04/28/24 at 0930, For 1 dose 04/28/20 24 completed REXULTI 3mg Tablet active terconazole (TERAZOL 7) 0.4 % vaginal cream Insert 1 applicator into the vagina nightly. 03/20/20 24 active Drospirenone 4 MG Tab 1pilldaily 24 active OMEprazole (PriLOSEC) 40 MG capsule TAKE 1 CAPSULE BY MOUTH 2 TIMES A DAY BEFORE BREAKFAST AND DINNER. 03/06/20 active diazePAM (VALIUM) 5 mg tablet Take 1 tablet (5 mg total) by mouth every 6 hours as needed. 02/09/20 active diazePAM (VALIUM) 5 mg tablet Take 1 tablet (5 mg total) by mouth every 6 hours as needed. 02/09/20 active diazePAM (VALIUM) tablet 5 mg Take 1 tablet (5 mg total) by mouth every 6 (six) hours as needed. 02/09/20 active diazePAM (VALIUM) tablet 5 mg Take 1 tablet (5 mg total) by mouth every 6 (six) hours as needed. 02/09/20 active lubiprostone (AMITIZA) 24 MCG capsule TAKE 1 CAPSULE BY MOUTH 2 TIMES A DAY WITH MEALS. 01/30/20 24 active mupirocin (BACTROBAN) 2 % ointment Please see attached for detailed directions 01/24/20 aborted mupirocin (BACTROBAN) 2 % ointment Apply topically daily as needed (Apply for itching over incisoin) for up to 7 days. Apply to incision area once daily. 01/24/20 24 active sennosides-docusate sodium (SENOKOT-S) 8.6-50 mg tablet Take 1 tablet by mouth daily as needed for constipation. 01/18/20 24 active bisacodyL (Dulcolax, bisacodyl,) 10 mg suppository Insert 1 suppository (10 mg total) into the rectum daily as needed for constipation for up to 10 days. 01/18/20 active metroNIDAZOLE (FLAGYL) 500 MG tablet Take 1 tablet (500 mg total) by mouth 2 (two) times a day. Take with meals or food to reduce stomach upset. 01/14/20 24 025 active metroNIDAZOLE (FLAGYL) 500 mg tablet TAKE 1 TABLET BY MOUTH TWICE A DAY WITH MEALS OR FOOD TO REDUCE STOMACH UPSET 01/14/20 active morphine (MS CONTIN) 30 mg 12 hr tablet Take 1 tablet (30 mg total) by mouth in the morning and 1 tablet (30 mg total) before bedtime. Do all this for 7 days. Max Daily Amount: 60 mg. 01/12/20 24 active diazePAM (VALIUM) 5 mg tablet Take 1 tablet (5 mg total) by mouth every 6 (six) hours as needed for muscle spasms. 01/11/20 24 active cholecalciferol (VITAMIN D3) 250 mcg (10,000 unit) capsule Take 1 capsule (10,000 Units total) by mouth in the morning. 01/03/20 24 024 active lamoTRIgine (LaMICtal) 200 mg tablet Take 200 mg by mouth in the morning and 200 mg before bedtime. 12/30/19 24 active Rexulti 1 mg tablet Take 1 mg by mouth in the morning. 3 mg gd . 12/24/19 active traZODone (DESYREL) 100 mg tablet Take 100-200 mg by mouth nightly. 12/08/19 24 active gabapentin (NEURONTIN) 300 MG capsule 2 capsules (600 mg total) every night at bedtime. 11/09/19 24 aborted gabapentin (NEURONTIN) 300 MG capsule 2 capsules (600 mg total) every night at bedtime. 11/09/19 24 active brexpiprazole (Rexulti) 0.5 mg tablet Take 3 mg by mouth daily. 10/19/19 active brexpiprazole (Rexulti) 0.5 mg tablet Take 3 mg by mouth daily. 10/19/19 active Rexulti 0.5 MG TABS Take 3 mg by mouth daily. 10/19/19 active Rexulti 0.5 MG TABS Take 1 tablet by mouth daily. 10/19/19 active Rexulti 0.5 MG TABS Take 3 mg by mouth daily. 01/30/20 24 active lubiprostone (AMITIZA) 24 MCG capsule Take 1 capsule (24 mcg total) by mouth 2 (two) times a day with meals. 08/09/20 active lubiprostone (AMITIZA) 24 mcg capsule Take by mouth daily. 08/09/20 active lubiprostone (AMITIZA) 24 mcg capsule Take by mouth daily. 08/09/20 active lubiprostone (AMITIZA) 24 MCG capsule Take by mouth daily. 08/09/20 active lubiprostone (AMITIZA) 24 MCG capsule Take by mouth daily. 08/09/20 active lubiprostone (AMITIZA) capsule Take by mouth. 08/09/20 active Hydrocodone Bitartrate/Acetaminoph en 5mg-325mg Tablet 06/30/20 active ibuprofen (MOTRIN) 600 MG tablet Take 600 mg by mouth 3 (three) times a day as needed. 06/08/20 024 aborted fluconazole (diFLUcan) 150 MG tablet [The details of the medication are not available because there are pending changes by a home health clinician.] 05/28/20 024 active Linzess 72mcg Capsule 03/09 active traZODone (DESYREL) 50 MG tablet TAKE 1 TO 2 TABLETS BY MOUTH EVERY EVENING AT BEDTIME NEEDED 05/10/20 active cephalexin (KEFLEX) 500 MG capsule Take 1 capsule (500 mg total) by mouth 2 (two) times a day. 01/28/20 023 active hydrOXYzine (ATARAX) 25 mg tablet Take by mouth. 01/28/20 active Medrol Dosepak 4mg Tablet 01/19/20 023 active polyethylene glycol-electrolytes (NuLYTELY, TRILYTE) 420 g solution Take as directed for Colonoscopy/GI Procedure. See administration instructions. 01/15/20 023 active sodium chloride 0.9% (NS) infusion 75 mL/hr, Intravenous, Continuous, Starting on Wed12/09/22 at 1000, Pre-Procedure (GI) 12/10/19 23 active linaclotide (LINZESS) 290 MCG Cap capsule Take 1 capsule (290 mcg total) by mouth every morning before breakfast. 11/04/19 023 active docusate sodium (COLACE) 100 MG capsule TAKE 1 CAPSULE BY MOUTH 2 (TWO) TIMES A DAY. 10/30/19 023 active docusate sodium (COLACE) 100 mg capsule 10/30/19 active famotidine (PEPCID) tablet 10/26/19 active linaclotide (Linzess) 145 MCG Cap capsule Take 290 mcg by mouth. 10/22/19 023 aborted Linzess 145 mcg capsule capsule 10/22/19 active Sporanox 100mg Capsule 023 active meloxicam (MOBIC) 15 MG tablet Take 15 mg by mouth daily. with food 10/06/19 023 active Linzess 145mcg Capsule active trazadone 09/23/19 active linaclotide (LINZESS) 145 MCG Cap capsule Take 1 capsule (145 mcg total) by mouth every morning before breakfast. 09/22/19 023 active pramipexole (MIRAPEX) 1.5 mg tablet Take 7 tablets (10.5 mg total) by mouth every night at bedtime. 09/15/20 active pramipexole (MIRAPEX) 1.5 mg tablet Take 7 tablets (10.5 mg total) by mouth every night at bedtime. 09/15/20 active pramipexole (MIRAPEX) 1.5 MG tablet Take 7 tablets (10.5 mg total) by mouth every night at bedtime. 09/15/20 active pramipexole (MIRAPEX) 1.5 MG tablet Take 7 tablets (10.5 mg total) by mouth every night at bedtime. 09/15/20 active pramipexole (MIRAPEX) 1.5 MG tablet Take 7 tablets (10.5 mg total) by mouth every night at bedtime. 09/15/20 active baclofen (LIORESAL) 10 mg tablet PLEASE SEE ATTACHED FOR DETAILED DIRECTIONS 08/24/20 22 022 active gabapentin (NEURONTIN) 300 MG capsule Take 300 mg by mouth 2 (two) times a day. 07/30/20 024 aborted gabapentin (NEURONTIN) 300 mg capsule TAKE 1 CAPSULE IN THE MORNING AND TAKE 1 CAPSULE AT NOON AND TAKE 1 CAPSULE BEFORE BEDTIME 07/30/20 024 active metroNIDAZOLE (METROGEL) 0.75 % vaginal gel Insert one application per vagina at bedtime x 5 nights. 07/29/20 023 aborted baclofen (LIORESAL) 10 mg tablet Take 1 tablet (10 mg total) by mouth in the morning and 1 tablet (10 mg total) at noon and 1 tablet (10 mg total) before bedtime. Do all this for 20 days. 07/21/20 active polyethylene glycol (miraLAx) 17 GM/SCOOP powder Take 17 g by mouth. 07/01/20 024 active lidocaine (LIDODERM) 5 % patch Place 3 patches on the skin daily. One patch to lower back and two patches to left thigh. Apply patch and leave on for 12 hours then remove. Patch may remain on skin for 12 hours per day. Do not start before July 01, 2022. 07/01/20 active lidocaine (LIDODERM) 5 % patch Place 3 patches on the skin in the morning. 07/01/20 active senna-docusate (SENNA-S) 8.6-50 MG Take 2 tablets by mouth nightly. 06/30/20 active baclofen (LIORESAL) 5 MG tablet Take 1 tablet (5 mg total) by mouth 3 (three) times a day. 06/30/20 023 active gabapentin (NEURONTIN) 600 MG tablet Take 1 tablet (600 mg total) by mouth 3 (three) times a day. 06/30/20 023 active methocarbamol (ROBAXIN) 500 MG tablet Take 2 tablets (1,000 mg total) by mouth 3 (three) times a day. 06/30/20 023 active celecoxib (CeleBREX) 200 mg capsule Take 200 mg by mouth in the morning and 200 mg in the evening. 06/30/20 022 active baclofen (LIORESAL) 5 mg tablet Take 5 mg by mouth in the morning and 5 mg at noon and 5 mg in the evening. 06/30/20 active ketorolac (TORADOL) 10 mg tablet Take 1 tablet (10 mg total) by mouth every 6 (six) hours as needed for moderate pain (4-7) for up to 5 days. 06/28/20 active methylPREDNISolone (MEDROL DOSEPAK) 4 MG tablet follow package directions 06/21/20 025 aborted gabapentin (NEURONTIN) 300 mg capsule Take 1 capsule (300 mg total) by mouth in the morning and 1 capsule (300 mg total) at noon and 1 capsule (300 mg total) before bedtime. 06/21/20 active polyethylene glycol (GLYCOLAX) 17 gram packet Take 17 g by mouth 2 (two) times a day as needed (constipation) for up to 15 days. 06/21/20 active oxyCODONE (ROXICODONE) 5 MG immediate release tablet Take 5-10 mg by mouth Every 4 (four) to 6 (six) hours as needed. 06/21/20 023 active acetaminophen (TYLENOL) 325 mg tablet Take 975 mg by mouth Every 6 (six) hours. Purchase over the counter. Do not exceed 4000 milligrams in a 24-hour period. 06/21/20 active methocarbamoL (ROBAXIN) 500 mg tablet Take 2 tablets (1,000 mg total) by mouth in the morning and 2 tablets (1,000 mg total) at noon and 2 tablets (1,000 mg total) before bedtime. Do all this for 10 days. 06/21/20 active methylPREDNISolone (Medrol, Stefan,) 4 mg tablet On June 22 start on DAY 2 of the package. Follow package directions. DO NOT use the pills in DAY ONE of the package. 06/21/20 active oxyCODONE (ROXICODONE) 5 mg immediate release tablet Take 5 mg by mouth every 3 (three) hours as needed for moderate pain (4-7). Max Daily Amount: 40 mg 06/21/20 active senna (SENOKOT) 8.6 mg tablet Take 1 tablet (8.6 mg total) by mouth in the morning and 1 tablet (8.6 mg total) before bedtime. Please purchase over the counter. Please take while taking narcotics. Hold for diarrhea.. 06/21/20 active omeprazole (PriLOSEC) 40 MG capsule TAKE 1 CAPSULE BY MOUTH 2 TIMES A DAY BEFORE BREAKFAST AND DINNER. 06/18/20 active omeprazole (PriLOSEC) 40 MG capsule TAKE 1 CAPSULE BY MOUTH 2 TIMES A DAY BEFORE BREAKFAST AND DINNER. 06/18/20 active omeprazole (PriLOSEC) 40 MG capsule TAKE 1 CAPSULE BY MOUTH 2 TIMES A DAY BEFORE BREAKFAST AND DINNER. 06/18/20 active omeprazole (PriLOSEC) [address] capsule TAKE 1 CAPSULE BY MOUTH 2 TIMES A DAY BEFORE BREAKFAST AND DINNER. 06/18/20 active omeprazole (PriLOSEC) [address] capsule TAKE 1 CAPSULE BY MOUTH 2 TIMES A DAY BEFORE BREAKFAST AND DINNER. 06/18/20 active busPIRone (BUSPAR) 5 MG tablet Take 1 tablet (5 mg total) by mouth 2 (two) times a day. 06/10/20 024 aborted busPIRone (BUSPAR) 5 MG tablet Take 1 tablet by mouth 3 (three) times a day. 06/10/20 024 aborted busPIRone (BUSPAR) 5 MG tablet Take 1 tablet (5 mg total) by mouth 2 (two) times a day. 06/10/20 active OMEprazole (PriLOSEC) 40 MG capsule Take 1 capsule (40 mg total) by mouth 2 (two) times a day before breakfast and dinner. 06/03/20 024 active Sodium Sulfate-Mag Sulfate-KCl (Sutab) 1592-928-057 MG Tab One dose of 12 tablets on the Day Prior to procedure. One dose of 12 tablets on the Day Of the procedure. 06/03/20 22 023 active ondansetron (ZOFRAN) 4 MG tablet Take 1 tablet (4 mg total) by mouth 3 times daily (every 8 hours) as needed for nausea or vomiting. 06/03/20 22 023 active famotidine (PEPCID) 20 MG tablet TAKE 1 TABLET BY MOUTH TWICE A DAY 05/25/20 024 active Rexulti 0.5 MG tablet Take 0.5 mg by yolie th every evening. 05/18/20 22 023 active desvenlafaxine (PRISTIQ) 100 MG 24 hr tablet Take 100 mg by mouth. 05/12/20 025 active celeCOXIB (CeleBREX) 200 MG capsule Take 1 capsule (200 mg total) by mouth 2 (two) times a day. 04/30/20 023 active famotidine (PEPCID) 20 mg tablet Take 1 tablet (20 mg total) by mouth 2 (two) times a day. 04/30/20 active famotidine (PEPCID) 20 mg tablet Take 1 tablet (20 mg total) by mouth 2 (two) times a day. 04/30/20 active famotidine (PEPCID) 20 MG tablet Take 1 tablet (20 mg total) by mouth 2 (two) times a day. 04/30/20 active famotidine (PEPCID) 20 MG tablet Take 1 tablet (20 mg total) by mouth 2 (two) times a day. 04/30/20 active famotidine (PEPCID) 20 MG tablet Take 1 tablet (20 mg total) by mouth 2 (two) times a day. 04/30/20 active busPIRone (BUSPAR) 5 MG tablet Take 5 mg by mouth 2 (two) times a day. Third dose is as needed 04/16/20 023 active lamoTRIgine (LaMICtal) 200 mg tablet Take 1 tablet (200 mg total) by mouth 2 (two) times a day. 04/16/20 active lamoTRIgine (LaMICtal) 200 mg tablet Take 1 tablet (200 mg total) by mouth 2 (two) times a day. 04/16/20 active lamoTRIgine (LaMICtal) 200 MG tablet Take 1 tablet (200 mg total) by mouth 2 (two) times a day. 04/16/20 active lamoTRIgine (LaMICtal) 200 MG tablet Take 1 tablet (200 mg total) by mouth 2 (two) times a day. 04/16/20 active lamoTRIgine (LaMICtal) 200 MG tablet Take 1 tablet (200 mg total) by mouth 2 (two) times a day. 04/16/20 active ibuprofen 600 mg tablet Take 600 mg by mouth 3 times daily as needed. 04/09/20 active pramipexole (MIRAPEX) 1.5 mg tablet 03/24/20 active ibuprofen (MOTRIN) 800 mg tablet Take 1 tablet (800 mg total) by mouth 4 times daily (every 6 hours) as needed for mild pain or moderate pain. 01/29/20 023 aborted Rexulti 0.5 mg tablet active busPIRone (BUSPAR) 5 mg tablet Take 5 mg by mouth in the morning and 5 mg before bedtime. 12/05/19 active omeprazole (PriLOSEC) 40 mg capsule Take 40 mg by mouth in the morning and 40 mg before bedtime. 11/17/19 active omeprazole (PriLOSEC) 40 mg capsule Take by mouth. 11/17/19 active chlorhexidine (PERIDEX) 0.12 % solution RINSE MOUTH WITH 15ML (1 CAPFUL) FOR 30 SECONDS IN MORNING AND EVENING AFTER BRUSHING, THEN SPIT 10/28/19 active polyethylene glycol-electrolytes (Nulytely with Flavor Packs) 420 g solution Take 4,000 mL by mouth once. 06/20/20 active Oral Appliance Oral AppliancePatient has DIANE (AHI 17) and has an oral appliance, which will be adjusted further Quantity: 1 Refills: Mima Franco PA-C Start : [id number] 04/23/20 completed [id number] sium sulfates (Suprep Bowel Prep Kit) 17.5-3.13-1.6 GM/177ML Solution solution Follow directions provided by physician's office. 04/23/20 active methocarbamol (ROBAXIN) 750 MG tablet Take 750 mg by mouth 3 (three) times a day. 04/17/20 active methocarbamoL (ROBAXIN) 750 mg tablet Take 750 mg by mouth 3 times daily. 04/17/20 21 active prazosin (MINIPRESS) 1 MG capsule TAKE 1 TO 2 TABLETS BY MOUTH ONCE DAILY AT BEDTIME 07/14/20 21 active pramipexole (miraPEx) 1.5 MG tablet Take 9 mg by mouth nightly. 03/20/20 21 024 active pramipexole (miraPEx) 1.5 MG tablet Take 6 mg by mouth nightly. 03/20/20 21 active naproxen (NAPROSYN) 500 mg tablet TAKE 1 TABLET ONCE TO TWICE A DAY 02/13/20 21 022 aborted lamoTRIgine (LaMICtal) 200 MG tablet Take 200 mg by mouth 2 (two) times a day. 02/07/20 21 025 active desvenlafaxine succinate (PRISTIQ) 50 mg 24 hr tablet Take 100 mg by mouth. 02/07/20 21 active lamoTRIgine (LaMICtal) 200 MG tablet 02/07/20 21 active Desvenlafaxine Succinate ER 50 MG Oral Tablet Extended Release 24 Hour Desvenlafaxine Succinate ER 50 MG Oral Tablet Extended Release 24 Hour Quantity: 30 Refills: 0 Start : 12/20/19 21 completed Desvenlafaxine Succinate ER 25 MG Oral Tablet Extended Release 24 Hour Desvenlafaxine Succinate ER 25 MG Oral Tablet Extended Release 24 Hour Quantity: 30 Refills: 0 Start : 11/28/19 21 completed Prazosin HCl - 1 MG Oral Capsule Prazosin HCl - 1 MG Oral Capsule Refills: 0 Start : 11/28/19 21 completed itraconazole (SPORANOX) 100 MG capsule TAKE 1 CAPSULE BY MOUTH TWICE A DAY AFTER MEALS 03/28/20 20 active Lamotrigine 200mg tablet 12/06/19 20 active fluticasone propionate (FLONASE) 50 mcg/actuation nasal spray Administer into affected nostril(s). 02/01/20 active ipratropium (ATROVENT) 42 mcg (0.06 %) nasal spray Administer into affected nostril(s). 02/01/20 19 active SUMAtriptan (Imitrex) 100 mg tablet 02/01/20 19 active hydrOXYzine pamoate (VISTARIL) 25 MG capsule 11/29/19 19 active albuterol sulfate HFA 90 mcg/actuation aerosol inhaler INHALE 2 PUFFS EVERY 4 HOURS NEEDED FOR WHEEZING OR SHORTNESS OF BREATH 025 completed cephalexin 500 mg capsule TAKE 1 CAPSULE BY MOUTH TWICE A DAY 025 completed desvenlafaxine succinate ER 100 mg tablet,extended release 24 hr TAKE 1 TABLET BY MOUTH EVERY DAY 025 completed ibuprofen 600 mg tablet TAKE 1 TABLET BY MOUTH THREE TIMES A DAY NEEDED 025 completed ibuprofen 800 mg tablet 1 TABLET 3 TIMES A DAY NEEDED 025 completed ipratropium bromide 42 mcg (0.06 %) nasal spray SPRAY 2 SPRAYS INTO EACH NOSTRIL EVERY DAY 025 completed methylprednisolone 4 mg tablets in a dose pack TAKE 6 TABLETS ON DAY 1 DIRECTED ON PACKAGE AND DECREASE BY 1 TAB EACH DAY FOR A TOTAL OF 6 DAYS 025 completed nitrofurantoin monohydrate/macrocryst als 100 mg capsule TAKE 1 CAPSULE BY MOUTH 2 TIMES A DAY WITH MEALS. 025 completed peg-electrolyte solution 420 gram oral solution TAKE DIRECTED FOR COLONOSCOPY/GI PROCEDURE. SEE ADMINISTRATION INSTRUCTIONS 025 completed prednisone 20 mg tablet TAKE 2 TABLETS (40 MG TOTAL) BY MOUTH DAILY. 025 completed trazodone 100 mg tablet TAKE 1 TO 2 TABLETS BY MOUTH EVERY BEDTIME 025 completed amoxicillin 875 mg-potassium clavulanate 125 mg tablet TAKE 1 TABLET EVERY 12 HOURS DAILY 025 completed doxycycline hyclate 100 mg capsule TAKE 1 CAPSULE BY MOUTH TWICE A DAY 025 completed metronidazole 500 mg tablet TAKE 1 TABLET BY MOUTH TWICE A DAY WITH MEALS OR FOOD TO REDUCE STOMACH UPSET 025 completed diazepam (VALIUM) 5 MG tablet Take 5 mg by mouth 4 times daily (every 6 hours) as needed for muscle spasms. 025 active HYDROcodone-acetaminop hen (NORCO) 5-325 MG per tablet Take 1 tablet by mouth every 6 (six) hours as needed for pain. aborted methocarbamol (ROBAXIN) 750 MG tablet Take 1 tablet (750 mg total) by mouth 4 (four) times a day. aborted Probiotic Product (PROBIOTIC DAILY PO) Take by mouth. 06/12 aborted acetaminophen (TYLENOL) 325 MG tablet Take 975 mg by mouth every 6 (six) hours. active brexpiprazole (REXULTI) 0.5 MG tablet Take 0.5 mg by mouth daily. along with the 1mg for total of 1.5mg daily active brexpiprazole (REXULTI) 1 MG tablet Take 1 mg by mouth daily. along with the 0.5mg for total of 1.5mg daily active CHOLECALCIFEROL PO Take 10,000 Units by mouth daily. aborted SENNA PO Take 1 tablet by mouth 2 times a day. active bisacodyl (DULCOLAX) 5 MG EC tablet Take 5 mg by mouth daily as needed. prn while taking narcotic pain meds active morphine (MS CONTIN) 30 MG ER (extended release) tablet Take 30 mg by mouth 2 (two) times a day. active oxyCODONE (OXY-IR) 5 MG capsule Take 5 mg by mouth every 3 (three) hours as needed for moderate pain or severe pain. active dexamethasone 4 mg tablet TAKE 1 TABLET BY MOUTH THREE TIMES A DAY active famotidine 20 mg tablet TAKE 1 TABLET BY MOUTH TWICE A DAY active fluconazole 150 mg tablet TAKE 1 TABLET BY MOUTH EVERY 72 HOURS active gabapentin 600 mg tablet TAKE 1 TABLET BY MOUTH EVERY NIGHT AT BEDTIME ONE HOUR BEFORE GOING TO BED active lamotrigine 150 mg tablet TAKE 1 TABLET BY MOUTH TWICE A DAY active lamotrigine 200 mg tablet TAKE 1 TABLET BY MOUTH TWICE A DAY active lubiprostone 24 mcg capsule TAKE 1 CAPSULE BY MOUTH 2 TIMES A DAY WITH MEALS. active omeprazole 40 mg capsule,delayed release TAKE 1 CAPSULE BY MOUTH 2 TIMES A DAY BEFORE BREAKFAST AND DINNER. active phenazopyridine 200 mg tablet TAKE 1 TABLET BY MOUTH 3 TIMES A DAY NEEDED FOR BLADDER SPASMS. active phentermine 37.5 mg tablet TAKE 1 TABLET BY MOUTH EVERY DAY active pramipexole 1.5 mg tablet TAKE 6 TABLET BY MOUTH AT BEDTIME active Rexulti 0.5 mg tablet TAKE 1 TABLET BY MOUTH EVERY DAY active Rexulti 1 mg tablet TAKE 1 TABLET BY MOUTH EVERY DAY active Rexulti 2 mg tablet TAKE 1 TABLET BY MOUTH EVERY DAY active Rexulti 3 mg tablet TAKE 1 TABLET BY MOUTH EVERY DAY active Trulance 3 mg tablet TAKE 1 TABLET BY MOUTH DAILY active Vraylar 1.5 mg capsule TAKE 1 CAPSULE BY MOUTH EVERY DAY active busPIRone HCl - 5 MG Oral Tablet busPIRone HCl - 5 MG Oral TabletTAKE 1 TABLET EVERY 12 HOURS DAILY. Refills: 0Active completed chlorhexidine (PERIDEX) 0.12 % oral solution Apply 15 mL to the mouth or throat See Admin Instructions. once every other day active Flonase 50 MCG/ACT SUSP Flonase 50 MCG/ACT SUSP Refills: 0Active completed HYDROcodone-acetaminop hen (NORCO) 5-325 MG per tablet Take 1 tablet by mouth every 6 (six) hours as needed for pain. active hydrOXYzine HCl - 25 MG Oral Tablet hydrOXYzine HCl - 25 MG Oral Tablet Refills: 0Active completed Ibuprofen 800 MG Oral Tablet Ibuprofen 800 MG Oral Tablet Refills: 0Active completed Imitrex TABS Imitrex TABS Refills: 0Active completed Ipratropium [place] 0.06 % Nasal Solution Ipratropium [place] 0.06 % Nasal Solution Refills: 0Active completed lamoTRIgine (LaMICtal) 100 mg tablet Take 200 mg by mouth. active lamoTRIgine 200 MG Oral Tablet Disintegrating lamoTRIgine 200 MG Oral Tablet Disintegrating Refills: 0Active completed methocarbamol (ROBAXIN) 750 MG tablet Take 1 tablet (750 mg total) by mouth 4 (four) times a day. active naproxen (NAPROSYN) 500 MG tablet Take 500 mg by mouth as needed for headaches. Take with meals or food to reduce stomach upset. active Pramipexole Dihydrochloride 1 MG Oral Tablet Pramipexole Dihydrochloride 1 MG Oral Tablet Refills: 0Active completed Probiotic Product (PROBIOTIC DAILY PO) Take by mouth. active Rexulti 0.5 MG Oral Tablet Rexulti 0.5 MG Oral Tablet Refills: 0Active completed traZODone (DESYREL) 50 mg tablet Take 1 tablet (50 mg total) by mouth every night at bedtime. active traZODone (DESYREL) 50 mg tablet TAKE 1 TO 2 TABLETS BY MOUTH EVERY EVENING AT BEDTIME NEEDED active traZODone (DESYREL) 50 mg tablet Take 1 tablet (50 mg total) by mouth every night at bedtime. active traZODone (DESYREL) 50 MG tablet Take 1 tablet (50 mg total) by mouth every night at bedtime. active traZODone (DESYREL) 50 MG tablet Take 1 tablet (50 mg total) by mouth every night at bedtime. active traZODone (DESYREL) 50 MG tablet Take 1 tablet (50 mg total) by mouth every night at bedtime. active traZODone HCl - 50 MG Oral Tablet traZODone HCl - 50 MG Oral Tablet Refills: 0Active completed Vraylar 1.5 mg capsule Take 1 capsule (1 .5 mg total) by mouth 1 (one) time each day. active Allergies Allergen Reaction Severity Comment Documented Date Source Statu s .NO KNOWN DRUG ALLERGIES ENS_POD CR[facility] Problems Problem Status Onset Date Problem Type Date of Resolution Source Intussusception active 2022-10-21 6 ProblemAct [facility] Chronic idiopathic constipation active 3 ProblemAct [facility] Dyssynergia active EncounterDiagnosisAct [facility] Nausea active 2022-05-21 4 ProblemAct [facility] Gastroesophageal reflux disease active 4 ProblemAct [facility] Abdominal bloating active 3 ProblemAct [facility] Numbness active 9 ProblemAct [facility] Tubular adenoma of colon active 2023-03-20 4 ProblemAct [facility] Back spasm active 2022-06-20 0 ProblemAct [facility] Irritable bowel syndrome with constipation active EncounterDiagnosisAct [facility] Change in bowel function active 2022-05-21 4 ProblemAct [facility] Colon cancer screening active 4 ProblemAct [facility] Pain of upper abdomen active 2022-05-21 4 ProblemAct [facility] Nausea and vomiting, unspecified vomiting type active EncounterDiagnosisAct [facility] Dysphagia active 4 ProblemAct [facility] Normocytic anemia active 2022-06-20 0 ProblemAct [facility] Coronary artery calcification active 2023-05-21 8 ProblemAct [facility] Lower abdominal pain active 6 ProblemAct E[facility]_PH[facility] Near syncope active EncounterDiagnosisAct [facility] Constipation active 9 ProblemAct [facility] MDD (major depressive disorder), recurrent severe, without psychosis ([facility] [place] V24, [facility] [place] V28) active 4 ProblemAct [facility] Dysuria active 3 ProblemAct ENS_PHCCT Intussusception ([facility] [place] V24, [facility] [place] V28) active 6 ProblemAct [facility] Sprain and strain of right wrist active 2019-09-21 7 ProblemAct [facility] Atypical chest pain active EncounterDiagnosisAc t CTTHSFRAN Borderline personality disorder ([facility] [place] V24, [facility] [place] V28) active 4 ProblemAct [facility] Cyst of kidney active 1 ProblemAct ENS_PHCCT Dizziness active EncounterDiagnosisAct [facility] Intussusception of small bowel active 9 ProblemAct CTTHS[facility] Incomplete RBBB active EncounterDiagnosisAct CTTHSFRAN Chest pain active EncounterDiagnosisAct [facility] Anxiety active EncounterDiagnosisAct [facility] Arthrodesis status active EncounterDiagnosisAct [facility] Lumbar spondylosis active 5 ProblemAct [facility] Lumbar stenosis with neurogenic claudication active 2022-05-23 0 ProblemAct [facility] Sprain, rupture or tear of other ligament of right ankle, foot or toe subsequent encounter active 0 5 ProblemAct E[facility]CR[facility] Contracture of tendo achilles active 4 ProblemAct [facility] Porokeratoma active 3 0 ProblemAct E[facility]ODCR[facility] Pain in right foot active 3 0 EncounterDiagnosisAct ENS_PODCR[facility] Pain in left toe(s) active 3 0 EncounterDiagnosisAct E[facility]ODCR[facility] Aftercare following orthopedic procedure active 2023-06-20 6 ProblemAct [facility] Plantar fasciitis active 4 ProblemAct [facility] Tendonitis of right ankle active 3 0 ProblemAct [facility] Tinea unguium, onychomycosis active 3 0 EncounterDiagnosisAct ENS_PODCRCT Immunizations Vaccine Date Source Lot Number Status Covid-19 (yetu) Dilution Required 01/28/2021 [employer] [id number] completed Covid-19 (Pfizer) Dilution Required 01/07/2021 [employer] [id number] completed Tdap 11/18/2019 CCT [id number] completed Tdap 11/18/2019 [facility] [id number] completed Tdap 06/26/2015 [facility] completed Tdap 06/26/2015 [facility] completed Tdap 06/26/2015 [facility] completed Encounters Encounter Type Encounter Reason Primary Diagnosis Location Date Ambulatory Abdominal Pain Abdominal Pain [facility] 07/10/2025 Ambulatory Dizziness [place] gidd[place] [facility] [place] Dizziness 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 [place]ector[place] [facility] [place] [facility] 06/25/2025 Ambulatory [facility] 05/23/2025 Ambulatory [facility] 05/23/2025 Ambulatory [facility] 05/23/2025 Ambulatory [facility] 05/23/2025 Ambulatory [facility]ena [facility] [place] [facility] 05/09/2025 Ambulatory Irritable bowel syndrome with constipation Irritable bowel syndrome with constipation [place] [facility] 04/13/2025 Ambulatory [facility] 04/09/2025 Ambulatory [facility] 04/09/2025 Ambulatory [facility] 04/09/2025 Ambulatory Acute cystitis without hematuria Acute cystitis without hematuria [facility] 04/03/2025 Ambulatory Irritable bowel syndrome with constipation Irritable bowel syndrome with constipation [facility] 03/28/2025 Emergency Eval Anxiety disorder , unspecified [facility] 03/23/2025 Ambulatory Urinary tract infection, site not specified Urinary tract infection, site not specified [facility] 03/22/2025 Ambulatory [place] [facility] 02/22/2025 Ambulatory Encounter for other screening for genetic and chromosomal anomalies Encounter for other screening for genetic and chromosomal anomalies [place] [facility] 02/22/2025 Ambulatory FHx Breast Cancer FHx Breast Cancer [facility] 02/20/2025 Ambulatory Other specified postprocedural states Other specified postprocedural states [facility] 01/11/2025 Ambulatory Other abnormal and inconclusive findings on diagnostic imaging of breast Other abnormal and inconclusive findings on diagnostic imaging of breast [place] [facility] 01/11/2025 Ambulatory Arthrodesis status Arthrodesis status [facility] 01/09/2025 Ambulatory Arthrodesis status Arthrodesis status [facility] 01/09/2025 Ambulatory Laceration Laceration [place] [facility] 12/24/2024 Ambulatory Constipation Constipation [place] [facility] 12/18/2024 Ambulatory Exposure to STD Exposure to STD [place] [facility] 12/13/2024 Ambulatory [place] [facility] 12/11/2024 Ambulatory [place] [facility] 12/11/2024 Ambulatory Mammographic heterogeneous density, bilateral breasts Mammographic heterogeneous density, bilateral breasts [place] [facility] 12/08/2024 Observation Dizziness and giddiness Dizziness and giddiness [place] [facility] 11/26/2024 Ambulatory Bronchitis Bronchitis [place] [facility] 10/09/2024 Ambulatory [facility] 09/27/2024 Ambulatory Post-op Spine Surgery Post-op Spine Surgery [facility] 09/27/2024 Ambulatory Follow-up Follow[facility]up [facility] 09/12/2024 Ambulatory Cold Cold [place] [facility] 08/03/2024 Ambulatory Other chest pain Other chest pain [facility] 06/29/2024 Ambulatory Other chest pain Other chest pain [facility] 06/29/2024 Ambulatory [place] [facility] 05/29/2024 Ambulatory Gynecologic Exam Gynecologic Exam [facility] 05/29/2024 Ambulatory Lateral epicondylitis, left elbow Lateral epicondylitis, left elbow [place] [facility] 05/26/2024 Ambulatory [facility] 05/24/2024 Ambulatory Arthrodesis status Arthrodesis status [facility] 05/24/2024 Emergency Chest pain, unspecified Chest pain, unspecified [place] [facility] 04/28/2024 Emergency Chest pain, unspecified Chest pain, unspecified [facility] 04/28/2024 Ambulatory Follow[facility]up Follow[facility]up [facility] 04/24/2024 Ambulatory Follow-up [facility] 03/16/2024 Ambulatory [facility] 03/02/2024 Ambulatory Pain in left foot Pain in left foot [facility] 03/02/2024 Ambulatory Arthrodesis status Arthrodesis status [facility] 02/09/2024 Ambulatory Arthrodesis status Arthrodesis status [facility] 02/09/2024 Ambulatory Arthrodesis status Arthrodesis status [facility] 01/24/2024 Ambulatory 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, lumbar region [facility] 01/24/2024 Emergency Fecal impaction Fecal impaction [facility] Ambulatory [facility] 01/13/2024 Ambulatory Arthrodesis status Arthrodesis status [facility] 01/12/2024 Ambulatory [facility] 01/10/2024 Inpatient Spinal stenosis, lumbar region with neur Spinal stenosis, lumbar region with neurogenic claudication [facility] 01/10/2024 Ambulatory Vitamin D deficiency, unspecified Vitamin D deficiency, unspecified [facility] 01/03/2024 Ambulatory 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, lumbar region [facility] 01/03/2024 Ambulatory 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, lumbar region [facility] 01/03/2024 Ambulatory [facility] 12/30/2023 Ambulatory 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, lumbar region [facility] 11/23/2023 Ambulatory Arthrodesis status Arthrodesis status [facility] 10/22/2023 Ambulatory Arthrodesis status Arthrodesis status [facility] 10/18/2023 Ambulatory Arthrodesis status Arthrodesis status [facility] 10/18/2023 Ambulatory [facility] 08/24/2023 Ambulatory Plantar fascial fibromatosis Plantar fascial fibromatosis [facility] 07/01/2023 Ambulatory Laceration without foreign body of right index finger without damage to nail, initial encounter Laceration without foreign body of right index finger without damage to nail, initial encounter [facility] 06/27/2023 Ambulatory Arthrodesis status Arthrodesis status [facility] 06/22/2023 Ambulatory Arthrodesis status Arthrodesis status [facility] 06/22/2023 Ambulatory Encounter for gynecological examination (general) (routine) without abnormal findings Encounter for gynecological examination (general) (routine) without abnormal findings [facility] 05/26/2023 Ambulatory Chronic idiopath ic constipation [facility] 04/02/2023 Ambulatory M2A [facility] 03/04/2023 Ambulatory [facility] 03/02/2023 Ambulatory Other enthesopat hies, not elsewhere classified [facility] 03/02/2023 Ambulatory Arthrodesis status [facility] 01/2023 Ambulatory Spinal stenosis, lumbar region with neurogenic claudication [facility] 02/22/2023 Emergency Dorsalgia, unspecified [facility] 02/09/2023 Ambulatory Other [facility] 02/08/2023 Ambulatory [facility] 01/27/2023 Ambulatory Contusion of lef t index finger without damage to nail, initial encounter [facility] 01/27/2023 Ambulatory Gastro-esophagea l reflux disease without esophagitis [facility] 12/09/2022 Ambulatory Chronic idiopath ic constipation [facility] 11/04/2022 Ambulatory Spinal stenosis, lumbar region with neurogenic claudication [facility] 10/26/2022 Ambulatory Arthrodesis status [facility] 02/2023 Ambulatory Chronic idiopathic constipation Chronic idiopathic constipation [facility] 09/22/2022 Ambulatory Acute pharyngiti s, unspecified [facility] 08/06/2022 Ambulatory Spinal stenosis, lumbar region with neurogenic claudication [facility] 07/21/2022 Ambulatory Spinal stenosis, lumbar region with neurogenic claudication [facility] 07/21/2022 Ambulatory Spinal stenosis, lumbar region with neurogenic claudication [facility] 07/02/2022 Ambulatory Spinal stenosis, lumbar region with neurogenic claudication [facility] 07/02/2022 Observation Dorsalgia, unspecified [facility] 06/28/2022 Emergency Dorsalgia, unspecified [facility] 06/27/2022 Ambulatory Post-op Spine Surgery [facility] 1 Ambulatory [facility] 06/22/2022 Inpatient Spinal stenosis, lumbar region with neurogenic claudication [facility] 06/19/2022 Ambulatory [facility] 06/19/2022 Ambulatory Spinal stenosis, lumbar region with neurogenic claudication [facility] 06/17/2022 Ambulatory [facility] 06/08/2022 Ambulatory Spinal stenosis, lumbar region with neurogenic claudication [facility] 06/08/2022 Ambulatory Upper abdominal pain, unspecified [facility] 06/03/2022 Ambulatory Spinal stenosis, lumbar region with neurogenic claudication [facility] 04/21/2022 Ambulatory Spinal stenosis, lumbar region with neurogenic claudication [facility] 04/21/2022 Ambulatory Spinal stenosis, lumbar region without neurogenic claudication [facility] 04/01/2022 Ambulatory Spinal stenosis, lumbar region without neurogenic claudication [facility] 02/12/2022 Ambulatory [facility] 02/12/2022 Ambulatory Spinal stenosis, lumbar region without neurogenic claudication [facility] 02/12/2022 Ambulatory [facility] 01/28/2022 Ambulatory Contusion of rig ht great toe without damage to nail, initial encounter [facility] 01/28/2022 Ambulatory Lumbago with sciatica, unspecified side [facility] 12/12/2021 Ambulatory Lumbago with sciatica, unspecified side [facility] 12/12/2021 Ambulatory Contact with and (suspected) exposure to covid-19 [facility] 11/04/2021 Ambulatory COVID-19 [facility] 11/02/2021 Ambulatory Pain in right knee [facility] 10/30/2021 Ambulatory [facility] 09/26/2021 Ambulatory Nondisplaced fra cture of middle phalanx of right ring finger, initial encounter for closed fracture [facility] 09/26/2021 Ambulatory Contact with and (suspected) exposure to covid-19 [facility] 08/29/2021 Ambulatory Contact with and (suspected) exposure to covid-19 [facility] 08/11/2021 Care Team Organization Name Specialty Phone Email Start Date End Da te [facility] 07/12/2025 [facility] 07/10/2025 [facility] CARRI ARRIAZA [facility] 07/10/2025 [facility] ARSALAN Primary Care 06/25/2025 [facility], 04/09/2025 [facility] ARSALAN, Primary Care 03/27/2025 [facility] ARSALAN, Primary Care 03/23/2025 [facility] CARRI ARRIAZA, Primary Care 02/20/2025 [facility] 07/30/2024 10/31/2024 [facility] ARSALAN, Primary Care 07/29/2024 o[facility] CARRI ARRIAZA, Primary Care 07/27/2024 [facility] 04/03/2025 [facility] 12/30/2023 06/21/20 [facility] provided No Primary Care 06/29/2023 11/05/2024 [facility] 06/07/2023 04/03/2025 [facility], [facility]. No provided Primary Care 05/26/2023 023 [facility] 02/20/2023 [facility]riaza [facility] 08/06/2022 [facility] 07/22/2022 [facility] Carri Arriaza Primary Care 2 08/22/2024 [facility] CARIR ARRIAZA Primary Care 07/21/2022 [facility] CARRI ARRIAZA, Primary Care 08/29/2021 08/06/20 [facility] Terry Forte MD Primary Care 06/12/2021 05/08/2024 [facility] Primary [facility] 0 03/28/2021 01/07/2022 [facility] CARRI ARRIAZA Primary Care [facility] CARRI ARRIAZA, Primary Care
--- OUTSIDE RECORDS SUMMARY | 2025-07-15 23:41 | XMS_ITS | Encounter Summary ---
Author Organization [facility] Address [address] [place] [address] Care Team Providers Care Office Systems Technology Instructor Name Role Phone Shay Muse MD Primary Care Provider [phone] Ewelina Pyaton MD Unavailable [phone] Ewelina Payton MD Unavailable [phone] Zeenat Fierro MD Unavailable [phone] Cordell Turpin MD Unavailable Encounter Details Date Type Department Care Team (Late st Contact Info) Description 06/02/2021 Scanned Document [facility] [address] [phone] Spencer Portillo MD [address] [place] [address] Social History Tobacco Use Types Packs/Day Years Used Date Smoking Tobacco: Every Day Cigarettes 0.8 15 Smokeless Tobacco: Never Alcohol Use Standard Drinks/Week Comments Yes 10 (1 standard drink = 0.6 oz pu re alcohol) Comments No Sex and Gender Information Value [...] 07/27/2025 10:30 AM EST Office Visit [facility] [address] [place] [address] Christian Subramanian MD [address] [place], [place] [address] 09/04/2025 3:00 PM EST Procedure visit [address] [phone] 10/30/2025 9:30 AM EST Office Visit [address] [place] [phone] Abby Lozano APRN 6 [facility] [address] [place] [address] documented as of this encounter Visit Diagnoses Not on filedocumented in this encounter Care Teams Office Systems Technology Instructor Relationship Specialty Start Date End Date Shay Muse MD [address] [place] [address] 4 [address] [place] [address] PCP - General Internal Medicine 03/13/21 Zeenat Fierro MD [address] [place] [address] PCP - Internal Medicine Surgery, Neurosurgery 02/09/23 Ewelina Payton MD [address] [place] [address]100 04/19/20 Ewelina Payton MD [address] [place] [address] 01/26/08 Cordell Turpin MD [address] [address] Restaurant Hostess 05/01/25 documented as of this encounter
--- OUTSIDE RECORDS SUMMARY | 2025-07-15 23:41 | XMS_ITS | Encounter Summary ---
Author Organization [facility] Address [address] [place] [address] Care Team Providers Care Crm Functional Analyst Name Role Phone Shay Muse MD Primary Care Provider Ewelina Payton MD Unavailable [phone] Ewelina Payton MD Unavailable [phone] Zeenat Fierro MD Unavailable [phone] Cordell Turpin MD Unavailable Encounter Details Date Type Department Care Team (Late st Contact Info) Description 03/13/2021 Scanned Document [facility] [address] [facility] [address] [place] [address] Provider, External, [address] [place] [address] Social History Tobacco Use Types Packs/Day Years Used Date Smoking Tobacco: Former Cigarettes 986 - 2015 Smokeless Tobacco: Never Alcohol Use Standard Drinks/Week Comments Yes 0 (1 standard drink = 0.6 oz [...] Description 07/27/2025 10:30 AM EST Office Visit [facility] [address] [place] [address] Christian Subramanian MD [address] [place], [place] [address] 09/04/2025 3:00 PM EST Procedure visit [facility] [place] [address] [place] [phone] 10/30/2025 9:30 AM EST Office Visit [address] [place] [phone] Abby Lozano, RASHAAD 6 [facility] [address] [place] [address] documented as of this encounter Visit Diagnoses Not on filedocumented in this encounter Care Teams Crm Functional Analyst Relationship Specialty Start Date End Date Shay Msue MD [address] [place] [address] [address] [place] [address] PCP - General Internal Medicine 03/13/21 Zeenat Fierro MD [address] [place] [address] PCP - Internal Medicine Surgery, Neurosurgery 02/09/23 Ewelina Payton MD [address] [place] [address] 04/19/20 Ewelina Payton MD [address] [place] [address] 01/26/08 Cordell Turpin MD NPI: [id number] [place] [address] Asset Coordinator 05/01/25 documented as of this encounter
--- OUTSIDE RECORDS SUMMARY | 2025-07-15 23:41 | XMS_ITS | Encounter Summary ---
Author Organization [facility] Address [address] [place] [address] Care Team Providers Care Sap Abap Developer Name Role Phone Shay Muse MD Primary Care Provider [phone] Ewelina Payton MD Unavailable [phone] Ewelina Payton MD Unavailable [phone] Zeenat Fierro MD Unavailable [phone] Cordell Turpin MD Unavailable Encounter Details Date Type Department Care Team (Late st Contact Info) Description 04/13/2025 Scanned Document [facility] [place] [address] [place] [phone] Nando Louise MD [address] [place] [address] Social History Tobacco Use Types Packs/Day Years [...] 07/27/2025 10:30 AM EST Office Visit [facility] [address] [place] [address] Christian Subramanian MD [address] [place], [place] [address] 09/04/2025 3:00 PM EST Procedure visit [address] [phone] 10/30/2025 9:30 AM EST Office Visit [facility] [address] [facility] [address] [place] [address] Abby Lozano APRN 6 [facility] [address] [place] [address] documented as of this encounter Visit Diagnoses Not on filedocumented in this encounter Care Teams Sap Abap Developer Relationship Specialty Start Date End Date Shay Muse MD [address] [place] [address] PCP - General Internal Medicine 03/13/21 Zeenat Fierro MD [address] [place] [address] PCP - Internal Medicine Surgery, Neurosurgery 02/09/23 Ewelina Payton MD [address] [place], [place] [phone] 04/19/20 Ewelina Payton MD [address] [place] [address] 01/26/08 Cordell Turpin MD [address] [place] [address] Email Specialist 05/01/25 documented as of this encounter
--- OUTSIDE RECORDS SUMMARY | 2025-07-15 23:41 | XMS_ITS | Encounter Summary ---
Author Organization [facility] Address [address] [place] [address] Care Team Providers Care Head Correction Officer Name Role Phone Shay Muse MD Primary Care Provider [phone] Ewelina Pyaton MD Unavailable [phone] Ewelina Payton MD Unavailable [phone] Zeenat Fierro MD Unavailable [phone] Cordell Turpin MD Unavailable Encounter Details Date Type Department Care Team (Late st Contact Info) Description 01/11/2024 Scanned Document [address] [address] Provider, Generic Social History Tobacco Use Types Packs/Day Years Used Date Smoking Tobacco: Every Day Cigarettes 0.8 15 Smokeless Tobacco: Never Alcohol Use Standard Drinks/Week Comments Yes 10 (1 standard drink = 0.6 oz pu re alcohol) OASIS D0700: Social Isolation Answer Da te Recorded Frequency of experiencing loneliness or isolatio n Rarely 01/13/2024 OASIS A1250: Transportation Answer Date Recorded Lack of Transportation (Medical) No 01/13/2024 Lack of Transportation (Non-Medical) No 01/13/2024 Patient Unable or Declines to Respond No 01/13/2024 AUDIT-C Answer Date Recorded Q1: How often [...] Description 07/27/2025 10:30 AM EST Office Visit [facility] [address] [phone] Christian Subramanian MD [address] [place], [place] [address] 09/04/2025 3:00 PM EST Procedure visit [address] [phone] 10/30/2025 9:30 AM EST Office Visit [address] [place] [phone] Abby Lozano APRN [address] [place] [address] [address] [place] [address] documented as of this encounter Visit Diagnoses Not on filedocumented in this encounter Care Teams Head Correction Officer Relationship Specialty Start Date End Date Shay Muse MD [address] [place] [address] [address] [place] [address] PCP - General Internal Medicine 03/13/21 Zeenat Fierro MD [address] [place] [address] PCP - Internal Medicine Surgery, Neurosurgery 02/09/23 Ewelina Payton MD [address] [place], [place] [id number] 04/19/20 Ewelina Payton MD [address] [place] [address] 01/26/08 Cordell Turpin MD [address] [place] [address] Director Cardiovascular 05/01/25 documented as of this encounter
--- OUTSIDE RECORDS SUMMARY | 2025-07-15 23:42 | XMS_ITS | Encounter Summary ---
Author Organization [facility] Address [address] [place] [address] Care Team Providers Care Real Estate Sales Supervisor Name Role Phone Shay Muse MD Primary Care Provider [phone] Ewelina Payton MD Unavailable [phone] Ewelina Payton MD Unavailable [phone] Zeenat Fierro MD Unavailable [phone] Cordell Turpin MD Unavailable Reason for Visit * Reason Comments Med Change Request Encounter Details Date Type Department Care Team (Late st Contact Info) Description 03/28/2025 Refill [facility] [address] [place] [phone] Abby Lozano APRN [address] [place] [address] Irritable bowel syndrome with constipation Social History Tobacco Use Types Packs/Day Years [...] 10:30 AM EST Office Visit [facility] [address] [place] [address] Christian Subramanian MD [address] [place] [address] 09/04/2025 3:00 PM EST Procedure visit [address] [phone] 10/30/2025 9:30 AM EST Office Visit [facility] [address] [facility] [address] [place] [address] Abby Lozano, MOVING PICTURE PRODUCER 6 [facility] [address] [place] [address] documented as of this encounter Visit Diagnoses Diagnosis Irritable bowel syndrome with constipation Irritable bowel syndrome documented in this encounter Care Teams Real Estate Sales Supervisor Relationship Specialty Start Date End Date Shay Muse MD [address] [place] [address] PCP - General Internal Medicine 03/13/21 Zeenat Fierro MD [address] [place] [address] PCP - Internal Medicine Surgery, Neurosurgery 02/09/23 Ewelina Payton MD [address] [place], [place] [phone] 04/19/20 Ewleina Payton MD [address] [place], [place] [address] 01/26/08 Cordell Turpin MD [address] [place] [address] [address] [place] [address] Supervisor Assembly 05/01/25 documented as of this encounter
--- OUTSIDE RECORDS SUMMARY | 2025-07-15 23:42 | XMS_ITS | Clinical Summary ---
Author Organization [facility] Address [address] [place] [address] Care Team Providers Care Associate Sales Manager Name Role Phone Unavailable Primary Care Provider Unavailabl e Allergies No known active allergies Medications Medication Sig Dispensed Refills Start Date End Date Status famotidine (PEPCID) 20 MG tablet Take 1 tablet (20 mg total) by mouth 2 (two) times a day. 0 04/30/2022 Active lamoTRIgine (LaMICtal) 200 MG tablet Take 1 tablet (200 mg total) by mouth 2 (two) times a day. 0 04/16/2022 Active omeprazole (PriLOSEC) 40 MG capsule TAKE 1 CAPSULE BY MOUTH 2 TIMES A DAY BEFORE BREAKFAST AND DINNER. 0 06/18/2022 Active pramipexole (MIRAPEX) 1.5 MG tablet Take 7 tablets (10.5 mg total) by mouth every night at bedtime. 0 09/15/2022 Active traZODone (DESYREL) 50 MG tablet Take 1 tablet (50 mg total) by mouth every night at bedtime. 0 Active Rexulti 0.5 MG TABS Take 3 mg by mouth daily. 0 10/19/2023 Active diazePAM (VALIUM) tablet 5 mg Take 1 tablet (5 mg total) by mouth every 6 (six) hours as needed. 0 02/09/2024 Active lubiprostone (AMITIZA) 24 MCG capsule Take by mouth daily. 0 08/09/2023 Active Active Problems Problem Noted Date Diagnosed Date Coronary artery calcification 06/07/2023 Intussusception 10/29/2022 Constipation 10/29/2022 Intussusception of small bowel 10/29/2022 Sprain and strain of right wrist 10/16/2019 MDD (major depressive disord er), recurrent severe, without psychosis 07/24/2015 Borderline personality disorder 07/24/2015 Resolved Problems Problem Noted Date Diagnosed Date Resolved Date Osteoarthritis of left knee 10/16/2019 10/16/2019 Primary osteoarthritis of right knee 10/16/2019 10/16/2019 Immunizations Name Administration Dates Next Due Adacel (Tdap) 11/18/2019 Covid-19 (Pfizer) Dilution Required 01/28/2021,0 01/07/2021 Family History Medical History Relation Name Comments Coronary artery disease Father Diabetes Father Heart disease Father Hyperlipidemia Father Hypertension Father Cancer Paternal Grandmother Relation Name Status Comments Brother Alive Father Alive Mother Alive Paternal Grandmother Sister 1 Alive Sister 2 Alive Social History Tobacco Use Types Packs/Day Years Used Date Smoking Tobacco: Every Day Cigarettes 1 20 Started: 07/23/1995 Passive Smoke Exposure: Current Smokeless Tobacco: Never Alcohol Use Standard Drinks/Week Comments Yes 3 (1 standard drink = 0.6 oz pur e alcohol) Socially Sex and Gender Information Value Date Recorded Sex Assigned at Female 11/18/2019 6:45 PM EST Gender Identity Female 09/16/2022 11:32 AM EST Sexual Orientation Not on file Job Start Date Occupation Industry Not on file Not on file Not on file Last Filed Vital Signs Vital Sign Reading Time Taken Comments Blood Pressure 123/67 06/29/2024 8:22 AM EDT Pulse 89 06/29/2024 8:22 AM EDT Temperature 37.1 C (98.7 F) 06/29/2024 8:06 AM EDT Respiratory Rate 15 06/29/2024 8:22 AM EDT Oxygen Saturation 97% 06/29/2024 8:22 AM EDT Inhaled Oxygen Concentration - - Weight 81.6 kg (180 lb) 06/29/2024 8:06 AM EDT Height 165.1 cm (5' 5 ) 06/29/2024 8:06 AM EDT Body Mass Index 29.95 06/29/2024 8:06 AM EDT Plan of Treatment Health Maintenance Due Date Last Done Comments Hepatitis B Vaccines (1 of 3 - 3-dose series) 1974 Hepatitis C Screening 1974 Pneumococcal Vaccine (1 of 2 - PCV) 02/05/1980 Depression Screening 1986 Preventative Health Evaluation 02/05/1992 Tobacco Cessation Counseling 02/05/1992 Cervical Cancer Screening (Pap Smear) 1995 BMI Counseling 10/16/2020 10/16/2019 Breast Cancer Screening (Mammogram) 02/05/2024 Shingrix-Zoster Vaccine (1 o f 2) 02/05/2024 COVID-19 Vaccine (3 - 2024-2 6 season) 2025 01/28/2021, 01/07/2021 Influenza Vaccine (#1) 2025 DTap / Tdap / Td (2 - Td or Tdap) 11/17/2029 11/18/2019 Colon Cancer Screening (Colonoscopy) 05/28/2031 05/28/2021 RSV Ped < 20 months Aged Out No longe r eligible based on patient's age to complete this topic Advance Directives For more information, please contact: [phone] Documents on File Type Date Recorded Patient Facilities Project Manager Expl anation Advance Directive and Living Will 09/18/2020 9:04 AM Latest Code Status on File Code Status Date Activated Date Inactivated Comments Full Code 10/29/2022 2:08 PM 10/30/2022 6:39 PM This c ode status was ascertained in the following way: discussion with patient. Code Status History Code Status Date Activated Date Inactivated Comments Full Code 07/23/2015 2:49 PM 07/26/2015 7:17 PM This code status was ascertained in the following way: per unit protocol.
--- OUTSIDE RECORDS SUMMARY | 2025-07-15 23:42 | XMS_ITS | Clinical Summary ---
Author Organization [facility] Address [address] [place] [address] Care Team Providers Care Store Stock Associate Name Role Phone Shay Muse MD Primary Care Provider [phone] Shay Muse MD Unavailable Zeenat Fierro MD Unavailable [phone] Allergies No known active allergies Medications Rexulti 0.5 mg tablet 2 Active chlorhexidine (PERIDEX) 0.12 % solution RINSE MOUTH WITH 15ML (1 CAPFUL) FOR 30 SECONDS IN MORNING AND EVENING AFTER BRUSHING, THEN SPIT 2 Active omeprazole (PriLOSEC) 40 mg capsule Take 40 mg by mouth in the morning and 40 mg before bedtime. 2 Active pramipexole (MIRAPEX) 1.5 mg tablet 2 Active famotidine (PEPCID) tablet 3 Active lubiprostone (AMITIZA) capsule Take by mouth. 3 Active lamoTRIgine (LaMICtal) 200 mg tablet Take 200 mg by mouth in the morning and 200 mg before bedtime. 4 Active Rexulti 1 mg tablet Take 1 mg by mouth in the morning. 3 mg gd . 4 Active traZODone (DESYREL) 100 mg tablet Take 100-200 mg by mouth nightly. 4 Active acetaminophen (TYLENOL) 325 mg tablet Take 975 mg by mouth Every 6 (six) hours. Purchase over the counter. Do not exceed 4000 milligrams in a 24-hour period. 4 Active oxyCODONE (ROXICODONE) 5 mg immediate release tablet Take 5 mg by mouth every 3 (three) hours as needed for moderate pain (4-7). Max Daily Amount: 40 mg 42 tablet 4 Active senna (SENOKOT) 8.6 mg tablet Take 1 tablet (8.6 mg total) by mouth in the morning and 1 tablet (8.6 mg total) before bedtime. Please purchase over the counter. Please take while taking narcotics. Hold for diarrhea.. 4 Active metroNIDAZOLE (FLAGYL) 500 mg tablet TAKE 1 TABLET BY MOUTH TWICE A DAY WITH MEALS OR FOOD TO REDUCE STOMACH UPSET 4 Active diazePAM (VALIUM) 5 mg tablet Take 1 tablet (5 mg total) by mouth every 6 (six) hours as needed for muscle spasms. 30 tablet 4 Active Additional Information Patient not taking.Reported on 01/09/2025 desvenlafaxine succinate ER (PRISTIQ) 100 mg 24 hr tablet Take 100 mg by mouth in the morning. 4 Active phentermine (ADIPEX-P) 37.5 mg tablet Take 37.5 mg by mouth. 5 Active prucalopride (MOTEGRITY) 2 mg tablet tablet Take 2 mg by mouth in the morning. 5 Active ibuprofen 600 mg tablet Take 600 mg by mouth 3 times daily as needed. 5 Active docusate sodium (COLACE) 100 mg capsule 3 Active Active Problems Problem Noted Date Diagnosed Date Lumbar spondylosis 11/23/2023 Lumbar stenosis with neurogenic claudication Social History Tobacco Use Types Packs/Day Years Used Date Smoking Tobacco: Former Cigarettes Smokeless Tobacco: Former Tobacco Cessation:Counseling Given: Not Answered Comments: Pt vape now Alcohol Use Standard Drinks/Week Comments Yes 4 (1 standard drink = 0.6 oz pur e alcohol) [facility] Utilities Answer Date Recorded In the past 12 months has th e electric, gas, oil, or water Modern Message threatened to shut off services in your home? No 01/10/2024 Humiliation, Afraid, Rape, and Kick questionnair e Answer Date Recorded Within the last year, have y ou been afraid of your partner or ex-partner? No 01/10/2024 Within the last year, have y ou been humiliated or emotionally abused in other ways by your partner or ex-partner? No Within the last year, have y ou been kicked, hit, slapped, or otherwise physically hurt by your partner or ex-partner? No 01/10/2024 Within the last year, have y ou been raped or forced to have any kind of sexual activity by your partner or ex-partner? No 01/10/2024 Overall Financial Resource Strain (CARDIA) Answe r Date Recorded How hard is it for you to pa y for the very basics like food, housing, medical care, and heating? Not very hard 01/10/2024 Hunger Vital Sign Answer Date Recorded Within the past 12 months, y ou worried that your food would run out before you got the money to buy more. Never true 01/10/20 24 Within the past 12 months, t he food you bought just didn't last and you didn't have money to get more. Never true 01/10/2024 PRAPARE - Transportation Answer Date Re corded In the past 12 months, has l ack of transportation kept you from medical appointments or from getting medications? No 01/10/2024 Lack of Transportation (Non-Medical) Not on file 01/10/2024 Housing Stability Vital Sign Answer Orestes e Recorded Unable to Pay for Housing in the Last Year Not o n file 01/10/2024 Number of Places Lived in the Last Year Not on f ile 01/10/2024 In the last 12 months, was t here a time when you did not have a steady place to sleep or slept in a chcf (including now)? No 01/10/2024 Comments No Sex and Gender Information Value Date Recorded Sex Assigned at Not on file Legal Sex Female 4:21 AM EST Gender Identity Not on file Sexual Orientation Not on file Last Filed Vital Signs Vital Sign Reading Time Taken Comments Blood Pressure 113/63 01/18/2024 12:47 AM EDT Pulse 84 01/18/2024 12:47 AM EDT Temperature 37 C (98.6 F) 01/18/2024 12:47 AM EDT Respiratory Rate 18 01/18/2024 12:4 7 AM EDT Oxygen Saturation 98% 01/18/2024 12: 47 AM EDT Inhaled Oxygen Concentration - - Weight 87.4 kg (192 lb 10.9 oz) 01/17/2024 8:34 PM EDT Height 165.1 cm (5' 5 ) 01/17/2024 8:34 PM EDT Body Mass Index 32.06 01/17/2024 8:34 PM EDT Plan of Treatment Health Maintenance Due Date Last Done Comments CT Colonography 1974 FIT-DNA (Cologuard) 1974 FIT 1974 FOBT 1974 Flex Sigmoidoscopy - 5y 1975 HIV Screening 1975 Hepatitis C Screening 02/05/1992 Hepatitis B Vaccines (1 of 3 - 19+ 3-dose series) 1993 Pneumococcal Vaccine, 50+ Years (1 of 2 - PCV) 1993 Zoster Vaccines (1 of 2) 02/05/2024 COVID-19 Vaccine (3 - 2024- season) 2025 01/28/2021, 01/07/2021 Influenza Vaccine (#1) 2025 Pap Smear 05/26/2026 05/26/2023 Breast Cancer Screening 10/04/2026 10/04/19 25, 10/04/2024, 08/18/2023, Additional history exists Cervical Cancer Screening 05/26/2028 HPV/Cotest 05/26/2028 05/26/2023 DTaP,Tdap,and Td Vaccines (3 - Td or Tdap) 11/17/2029 11/18/2019, 06/26/2015 Colonoscopy 05/28/2031 05/28/2021, 05/28/2021 Colorectal Cancer Screening 05/28/2031 HPV Vaccines Aged Out No longer eligi ble based on patient's age to complete this topic Hepatitis A Vaccines Aged Out No long er eligible based on patient's age to complete this topic MMR Vaccines Aged Out No longer eligi ble based on patient's age to complete this topic Meningococcal Vaccine Aged Out No rani joni eligible based on patient's age to complete this topic Medical Devices Implanted Type Area Panel Sewer Device Identifier Shelf Expiration Date Model / Serial / Lot 1.4cc, (Pk Of 1) 1in X 2in, Extra Smallinfuse Bone Graft Kit - [id number] Implanted:Qty: 1 on 06/19/2022 by Zeenat Fierro MD at [facility] Bone Graft Substitute N/A: Spine Lumbar [employer] - Sofamor Danek 02/18/2024 [id number] / / [id number] 1.4cc, (Pk Of 1) 1in X 2in, Extra Smallinfuse Bone Graft Kit - [id number] Implanted:Qty: 1 on 01/10/2024 by Zeenat Fierro MD at [facility] Bone Graft Substitute N/A: Spine Lumbar [employer] - Sofamor Danek 03/19/2025 [id number] / / [id number] Alphatec 5cc Dbm Putty - [id number] Implanted:Qty: 1 on 06/19/2022 by Zeenat Fierro MD at [facility] Bone N/A: Spine Lumbar [employer]phatec Spine[employer] Inc. 12/21/2023 [id number] / / [id number] 1 - 8 Mm, 15 Cc, Readigraft Cancellous Chips, Preservon - [id number] - [id number] Implanted:Qty: 1 on 06/19/2022 by Zeenat Fierro MD at [facility] Bone N/A: Spine Lumbar [facility] 01/01/2027 PCAN15 / [id number] / [id number] 1 - 8 Mm, 30 Cc, Readigraft Cancellous Chips, Preservon - [id number] - [id number] Implanted:Qty: 1 on 06/19/2022 by Zeenat Fierro MD at [facility] Bone N/A: Spine Lumbar [facility] 07/16/2026 PCAN30 / [id number] / [id number] Alphagraft Dbm Strip 100 Mm X 20 Mm - [id number] Implanted:Qty: 1 on 01/10/2024 by Zeenat Fierro MD at [facility] Graft Material N/A: Spine Lumbar [employer] Sp[employer]. 11/10/2028 [id number] / / N/A 7.5mm X 40mm Invictus Cannulated Polyaxial Spinal Screw - [id number] Implanted:Qty: 2 on 01/10/2024 by Zeenat Fierro MD at [facility] Ortho - Spinal Implant N/A: Spine Lumbar [employer]ph[employer] Spine[employer] Inc. [id number] / / 49-59mm Invictus Locking Spinal Cross Connector, Variable, Dana - [id number] Implanted:Qty: 1 on 01/10/2024 by Zeenat Fierro MD at [facility] Ortho - Spinal Implant N/A: Spine Lumbar [employer] Sp[employer] Inc. [id number] / / Alphatec Set Screw 82669 - [id number] Implanted:Qty: 14 on 01/10/2024 by Zeenat Fierro MD at [facility] Ortho - Spinal Implant N/A: Spine Lumbar [employer]phate[employer] Spine[employer] Inc. [id number] / / 5.5mm X 500mm Invictus Goldy S Ti - [id number] Implanted:Qty: 1 on 01/10/2024 by Zeenat Fierro MD at [facility] Ortho - Spinal Implant N/A: Spine Lumbar Alphate[employer] Spine[employer] Inc. [id number] 500 / / 6.5mm X 50mm Invictus Cannulated Polyaxial Spinal Screw - [id number] Implanted:Qty: 11 on 01/10/2024 by Zeenat Fierro MD at [facility] Ortho - Spinal Implant N/A: Spine Lumbar [employer] Sp[employer] Inc. [id number] -[id number] / / 6.5mm X 45mm Invictus Cannulated Polyaxial Spinal Screw - [id number] Implanted:Qty: 1 on 01/10/2024 by Zeenat Fierro MD at [facility] Ortho - Spinal Implant N/A: Spine Lumbar Alphate[employer] Spine[employer] Inc. [id number] -[id number] / / Explanted Type Area Panel Sewer Device Identifier Shelf Expiration Date Model / Serial / Lot 6.5mm X 45mm Invictus Cannulated Polyaxial Spinal Screw - [id number] Implanted:Qty: 2 on 06/19/2022 by Zeenat Fierro MD at [facility] Explanted:Qty: 2 on 01/10/2024 by Zeenat Fierro MD at [facility] Ortho - Spinal Implant N/A: Spine Lumbar Alphate[employer] Spine[employer] Inc. 33706-554 -045 / / Alphatec Set Screw 64945 - [id number] Implanted:Qty: 10 on 06/19/2022 by Zeenat Fierro MD at [facility] Explanted:Qty: 10 on 01/10/2024 by Zeenat Fierro MD at [facility] Ortho - Spinal Implant N/A: Spine Lumbar Alphate[employer] Spine[employer] Inc. [id number] / / Screw, 6.5 X 50 - [id number] Implanted:Qty: 6 on 06/19/2022 by Zeenat Fierro MD at [facility] Explanted:Qty: 6 on 01/10/2024 by Zeenat Fierro MD at [facility] N/A: Spine Lumbar Alphatec Spine[employer] Inc. [id number] -050 / / 7.5mm X 40mm Invictus Cannulated Polyaxial Spinal Screw - [id number] Implanted:Qty: 2 on 06/19/2022 by Zeenat Fierro MD at [facility] Explanted:Qty: 2 on 01/10/2024 by Zeenat Fierro MD at [facility] N/A: Spine Lumbar [employer]phate[employer] Spine[employer] Inc. [id number] -[id number] / / 5.5mm Invictus Goldy Mis Vi2 Lordotic Ti - [id number] Implanted:Qty: 2 on 06/19/2022 by Zeenat Fierro MD at [facility] Explanted:Qty: 2 on 01/10/2024 by Zeenat Fierro MD at [facility] N/A: Spine Lumbar Alphatec Spine[employer] Inc. 34636-90- 120 / / 40-51mm Alphatec Variable Spinal Bridge - [id number] Implanted:Qty: 1 on 06/19/2022 by Zeenat Fierro MD at [facility] Explanted:Qty: 1 on 01/10/2024 by Zeenat Fierro MD at [facility] N/A: Spine Lumbar Alphatec Spine[employer] Inc. [id number] / / Insurance MEDICAID [place] MEDICAID [place] A [place] * Guarantor: Laisha Oconnor Account Type Relation to Patient Date of Phone Billing Address Hospice/SNF Self [address] [place] [address] Advance Directives For more information, please contact: [phone] Documents on File Type Date Recorded Patient Admissions Supervisor Expl anation Advance Directives 06/22/2022 12:40 PM * Full Code (Latest Code Status on File) Date Activated Date Inactivated Comments 01/10/2024 11:48 AM 01/11/2024 4:56 PM * Full Code Date Activated Date Inactivated Comments 06/19/2022 11:15 AM 06/21/2022 7:15 PM Care Teams Store Stock Associate Relationship Specialty Start Date End Date Shay Muse MD [address] [place] [phone] PCP - General Internal Medicine 12/12/21 Shay Muse MD [address] [place] [phone] PCP - Insurance Payer PCP 10/18/23 Zeenat Fierro MD [address] [facility] [place] [phone] Surgeon Neurosurgery 01/17/24
--- OUTSIDE RECORDS SUMMARY | 2025-07-15 23:42 | XMS_ITS | Encounter Summary ---
Author Organization [facility] Address [address] [place] [address] Care Team Providers Care Creative Services Intern Name Role Phone Shay Muse MD Primary Care Provider [phone] Ewelina Payton MD Unavailable [phone] Ewelina Payton MD Unavailable [phone] Zeenat Fierro MD Unavailable [phone] Cordell Turpin MD Unavailable Encounter Details Date Type Department Care Team (Late st Contact Info) Description 10/01/2022 Scanned Document [facility] [address] [place] [address] Mylene Arias, PA Social History Tobacco Use Types Packs/Day Years [...] suspected to have Coronavirus/COVID-19? No / Unsure 09/22/2022 3:20 PM EST documented as of this encounter Plan of Treatment Upcoming Encounters Date Type Department Care Team (Late st Contact Info) Description 07/27/2025 10:30 AM EST Office Visit [facility] [address] [place] [phone] Christian Subramanian MD [address] [place], [place] [address] 09/04/2025 3:00 PM EST Procedure visit [address] [phone] 10/30/2025 9:30 AM EST Office Visit [address] [place] [phone] Abby Lozano, RASHAAD [address] [place] [address] documented as of this encounter Visit Diagnoses Not on filedocumented in this encounter Care Teams Creative Services Intern Relationship Specialty Start Date End Date Shay Muse MD [address] [place] [address] PCP - General Internal Medicine 03/13/21 Zeenat Fierro MD [address] [place] [address] PCP - Internal Medicine Surgery, Neurosurgery 02/09/23 Ewelina Payton MD [address] [place] [id number] 04/19/20 Ewelina Payton MD [address] [place], [place] [phone] 01/26/08 Cordell Turpin MD [address] [place] [address] Technical Planner 05/01/25 documented as of this encounter
--- OUTSIDE RECORDS SUMMARY | 2025-07-15 23:42 | XMS_ITS | Encounter Summary ---
Author Organization [facility] Address [address] [place] [address] Care Team Providers Care Broom Man Name Role Phone Shay Muse MD Primary Care Provider [phone] Ewelina Payton MD Unavailable [phone] Ewelina Payton MD Unavailable [phone] Zeenat Fierro MD Unavailable [phone] Cordell Turpin MD Unavailable Encounter Details Date Type Department Care Team (Late st Contact Info) Description 04/02/2025 Telephone [facility] [address] [place] [phone] Abby Lozano APRN [address] [address] Social History Tobacco Use Types Packs/Day Years [...] PM EDT documented as of this encounter Miscellaneous Notes * Telephone Encounter - Eduard Vale - 04/02/2025 1:08 PM EDT Ibsrela 50MG tablets medication or product was previously approved on [id number] from 2025-04-02 to 2025-09-19. documented in this encounter Plan of Treatment Upcoming Encounters Date Type Department Care Team (Late st Contact Info) Description 07/27/2025 10:30 AM EST Office Visit [facility] [address] [place] [phone] Christian Subramanian MD [address] [place] [address] 09/04/2025 3:00 PM EST Procedure visit [address] [phone] 10/30/2025 9:30 AM EST Office Visit [address] [place] [address] Abby Lozano APRN [address] [place], [place] [phone] documented as of this encounter Visit Diagnoses Not on filedocumented in this encounter Care Teams Broom Man Relationship Specialty Start Date End Date Shay Muse MD [address] [place] [address] [address] [facility] [address] [place] [address] PCP - General Internal Medicine 03/13/21 Zeenat Fierro MD [address] [place] [address] PCP - Internal Medicine Surgery, Neurosurgery 02/09/23 Ewelina Payton MD [address] [place] [address] 04/19/20 Ewelina Payton MD [address] [place] [address] 01/26/08 Cordell Turpin MD [address] [facility] [address] [place] [address] Residential Program Worker 05/01/25 documented as of this encounter
[2025-07-15 23:49] LABS: Alanine Aminotransferase 13 U/L (0-31); Albumin Level 4.2 g/dL (3.5-5.0); Alkaline Phosphatase 51 U/L (39-117); Anion Gap 10 (12-20); Aspartate Amino Transferase 14 U/L (5-31); Blood Urea Nitrogen 18 mg/dL (9-16); Calcium 8.5 mg/dL (8.4-10.2); Carbon Dioxide 23 mmol/L (22-29); Chloride 110 mmol/L (96-108); Creatinine Clr Calc Pharmacy 80.8; Estimated Glomerular Filt Rate > 60; Lipase 14 U/L (8-78); Magnesium 2.0 mg/dL (1.6-2.6); Potassium 3.9 mmol/L (3.3-5.1); Sodium 139 mmol/L (135-145); Total Protein 6.1 g/dL (6.5-8.0)
[2025-07-15 23:51] LABS: Acetaminophen LAB < 3 mcg/mL (<30); Salicylate < 5.0 mg/dL (15-30)
[2025-07-15 23:55] LABS: COVID-19 Test Negative (Negative); IDNOW Serial# 152EDE1D; IDNOW Serial# 16C4AD1C; Influenza B2 Negative (Negative)
[2025-07-15 23:56] LABS: Troponin-I High Sensitivity < 2.7 ng/L (<3.5-17.0)
[2025-07-16 00:07] VITALS: O2SAT 98
[2025-07-16 00:43] VITALS: BP 103/56; PULSE 66; TEMP 36.5; O2SAT 97
--- NOTE | 2025-07-16 00:46 | PC.NURSE ---
pt sleepy, able to answer question appropriately, no sign of distress.
[2025-07-16 01:46] LABS: Appearance Urine Cloudy; Glucose Urine UA Negative (Negative); PH 6.0 (5.0-9.0); Specific Gravity - Urine 1.015 (1.005-1.025); UMIC TRIGGER UACC YES
[2025-07-16 01:52] LABS: UACC Culture Trigger YES
[2025-07-16 01:59] LABS: Cannabinoid Screen Urine Not Detected (Not Detect)
--- NOTE | 2025-07-16 03:14 | PC.NURSE ---
pt medicated per mar.
[2025-07-16 03:28] VITALS: BP 103/56; PULSE 66; RESP 20; TEMP 36.5; O2SAT 97
--- NOTE | 2025-07-16 03:30 | PC.NURSE ---
reviewed discharge instructions with pt , pt verbalized understanding, no sign of distress, pt had a steady gait.
== END 2025-07-16 03:35 | disposition home or self-care (01) ==
PROVIDERS: Emergency Provider Emergency Medicine; PCP Internal Medicine
DX: E86.0 Dehydration (principal); I95.1 Orthostatic hypotension; N39.0 Urinary tract infection, site not specified; F31.9 Bipolar disorder, unspecified; Z79.899 Other long term (current) drug therapy
CPT/HCPCS: 36415; 80053; 80143; 80179; 80307; 81001; 82550; 83690; 83735; 84484; 85025; 87086; 87502; 87635; 93005; 96361; 96374; 99284; 99285; J2405; J7120

== ENCOUNTER → 2025-07-15 22:38 | Outpatient (BNV) | payer MEDICARE, MEDICAID, SELFPAY | PROVIDERS: Emergency Provider Emergency Medicine; PCP Internal Medicine; Visit Provider Internal Medicine | DX: R55 Syncope and collapse (principal) | CPT/HCPCS: 93010 ==